=== PATIENT | male | born 1960 | race Caucasian/White ===

== ENCOUNTER 2018-07-23 18:48 | Emergency (ER) | payer OTHER ==
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
--- OUTSIDE RECORDS SUMMARY | 2018-07-23 19:50 | XMS REPORT | Continuity of Care Document ---
:1960 External Reference #:[id number] Author Name Lorenzo Lee JR, MD Address [address] [place] [id number] Care Team Providers Name Role Phone Lorenzo Lee JR., M.D. Primary Care Physician Unavailable Payers Date Identification Numbers Payment Provider Subscriber Effective: 2017 Policy Number: [id number] [facility] Shared Services Marino Carmella Shantelle MCDONALD PayID: [id number] [address] [address] [place] [address] Expires: 2017 Policy Number: [id number] [facility] Shared Services Marino Carmella Shantelle MCDONALD PayID: [id number] [address] [address] [place] [address] Expires: 2016 Policy Number: [id number] [facility] Marino Carmella Shantelle MCDONALD PayID: [id number] [address] [place] [address] Expires: 2016 Policy Number: [id number] [facility] Shared Marino Eric Service PayID: [id number] [address] [address] [place] [address] Advance Directives Description No Information Available Problems Date Description Provider Status Onset: 04/04/2009 Peptic reflux disease Lorenzo Lee JR, MD Active Onset: 04/04/2009 Pure hypercholesterolemia Lorenzo Lee JR, MD Active Onset: 04/04/2009 Family history of ischemic heart Lorenzo Lee JR, MD Active disease Onset: 01/07/2011 Secondary parkinsonism Lorenzo Lee JR, MD Active Onset: 01/07/2011 Essential tremor Lorenzo Lee JR, MD Active Onset: 12/28/2013 Migraine Lorenzo Lee JR, MD Active Onset: 06/28/2014 Essential tremor Lorenzo Lee JR, MD Active Family History Date Family Member(s) Observation Comments Father Melanoma Father Diabetes onset at 74 Mother None Social History Type Date Description Comments Sex Unknown Marital Status Lives With Lives with spouse and step daughter and step son and son Smoke-Free Home is smoke-free 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 Tobacco Use Reviewed: 07/15/18 Never Smoked Cigarettes Smoking Status Reviewed: 07/15/18 Never Smoked Cigarettes ETOH Use Currently consumes alcohol ETOH Use Currently consumes 2 single drinks of liquor daily Tobacco Use Reviewed: 07/15/18 Patient has never smoked UNKNOWN 07/15/2018 Never used E cigarette Allergies, Adverse Reactions, Alerts Description No Known Drug Allergies Medications Medication Date Status Form Strength Qnty SIG Indications Ordering Provider Donepezil HCL 07/15 Active Tablets 5mg 30tab 1 by mouth F02.80 s every day Juan Alberto x2 weeks MD TAMARA then 2 everyday Comtan 09/10 Active Tablets 200mg 60tab 1 by mouth G2 s twice a day Juan Alberto MCDONALD MD Ventolin HFA 05/22 Active Aerosol 108(90Bas 1unit 1-2 puffs e) s every 4-6 Bonavita mcg/Act hours as MD TAMARA needed Ropinirole HCL 01/09 Active Tablets 4mg 270ta 1 by mouth G2 bs three times Juleevita a day MD TAMARA Paxil 12/28 Active Tablets 20mg 90tab 1 by mouth G43.909 s every day Juan Alberto MCDONALD MD Sinemet CR 02/09 Active Tablets 50-200mg 180ta 1 by mouth G2 ER bs twice a day Juan Alberto MCDONALD MD Aspirin 10/15 Active Tablets 81mg [address] Juan Alberto MCDONALD MD Multivitamins 05/07 Active Tablets 1 PO qd ARI Walker Dramamine Active Tablets 100mg OTC 1 by mouth twice a day Juan Alberto MCDONALD MD Terbinafine HCL 10/08 Hx Tablets 250mg 28tab take 1 B35.1 s tablet by Juan Alberto - mouth daily MD TAMARA 07/15 for nail disease (plan allows #28/28 days) Methylprednisolone 10/28 Hx Tablets 4mg 1Pack per pack M54.2 directions Juan Alberto Michelle JR, MD 11/17 Cefdinir 09/10 Hx Capsules 300mg 20cap 2 by mouth L03.116 s every day Juan Alberto Michelle JR, MD 09/20 Nystatin 12/26 Hx Cream [id number] 90gm apply to Adin A. t/GM area twice Fiacco, - a day, d/c 01/09 when gone Proair HFA 10/22 Hx Aerosol 108(90Bas 1unit 1-2 puffs J45.22 e) s q4-6 as Juan Alberto - mcg/Act needed MD TAMARA 05/22 wheezing/ b Xyzal 09/04 Hx Tablets 5mg 30tab 1 by mouth s every day Juan Alberto Michelle JR, MD 10/22 Breo Ellipta 08/24 Hx Aerosol 100-25mcg 3unit 1 in every G21.9 /Inh s day Juan Alberto Michelle JR, MD 06/08 Entacapone 06/28 Hx Tablets 200mg 180ta 1 by mouth G21.9 bs twice a day Juan Alberto Michelle JR, MD 09/10 Anoro Ellipta 06/28 Hx Aerosol 62.5-25mc sg 1 puff 332.1 g/Inh every day Juan Alberto Michelle JR, MD 08/24 Requip 12/28 Hx Tablets 2mg 360ta 2 by mouth 332.1 bs three times Bonavita - a day MD TAMARA 01/09 Requip 04/06 Hx Tablets 2mg 270ta 1 po tid 332.1 bs Juan Alberto Michelle JR, MD 12/28 Requip 02/24 Hx Tablets 1mg 90tab 1 po tid 332.1 s Juan Alberto Michelle JR, MD 04/06 Mirapex 01/26 Hx Tablets 1mg 90tab 1.5 po tid 333.1 s Juan Alberto Michelle JR, MD 02/09 332.1 Neupro 01/06/2013 - Hx Patches 24HR 4mg/24HR 1 patch q 24 Lorenzo 01/26/2013 hours Juan Alberto MCDONALD MD Neupro 12/23/2012 - Hx Patches 24HR 2mg/24HR [id number] apply q 24 Lorenzo 01/06/2013 hrs. Juan Alberto MCDONALD MD Mirapex 12/22/2012 - Hx Tablets 1.5mg 1 po tid rx 332.1 Lorenzo 12/23/2012 not printed Juan Alberto MCDONALD MD 333.1 Bactrim DS 12/20/2011 - Hx Tablets 800-160mg 20tabs 1 po bid x Abraham P. 12/30/2011 10 days MD Arsenio Bactroban 12/20/2011 - Hx Cream 2% [id number] apply to 704 Abraham P. 12/22/2012 affected .8 MD Arsenio skin bid prn Keflex 12/02/2011 - Hx Capsules 500mg 20caps 1 po bid x 704 Paulette E. 12/12/2011 10 days .8 FRANCIE Cartwright Proair HFA 12/02/2011 - Hx Aerosol 108(90Base) 1units 1-2 puffs 493 Paulette E. 10/23/2015 mcg/ac q4-6 prn .01 Gabbie wheezing/so FRANCIE b Prednisone 09/16/2011 - Hx Tablets 20mg 20tabs 2 po qd 704 Lorenzo 12/02/2011 .8 Juan Alberto MCDONALD MD Sinemet 09/16/2011 - Hx Tablets 25-100mg 30tabs 1 po tid 332 Lorenzo 09/16/2011 .1 Juan Alberto MCDONALD MD Mirapex ER 05/20/2010 - Hx Tablets ER 1.5mg 270tabs 1 po tid 332 Lorenzo 12/22/2012 24HR .1 Juan Alberto MCDONALD MD 333.1 Zoloft 05/01/2010 - Hx Tablets 50mg 30tabs 1 po qd Lorenzo 05/01/2010 Juan Alberto MCDONALD MD Paxil 05/01/2010 - Hx Tablets 30mg 90tabs 1 po qd 346.90 Lorenzo 12/28/2013 Juan Alberto MCDONALD MD Fluoxetine 04/08/2010 - Hx Capsules 20mg 30caps 1 po qd Lorenzo 05/01/2010 Juan Alberto MCDONALD MD Carbidopa/Levo 02/04/2010 - Hx Tablets 25-100m 90tabs 1 po tid Lorenzo dopa 04/08/2010 g Juan Alberto MCDONALD MD Abilify 12/26/2009 - Hx Tablets 5mg 30tabs 1 po qhs Lorenzo 04/08/2010 Juan Alberto MCDONALD MD Omeprazole 11/14/2009 - Hx Capsules DR 20mg 30caps 1 po qd 530.11 Bg, 02/17/2011 MD Aleksandr Paxil 11/14/2009 - Hx Tablets 20mg 30tabs 1 po qd 311 Lorenzo 04/23/2010 continue with Juan Alberto Fluoxatine for MD TAMARA two weeks then discontinue Amantadine HCL 11/14/2009 - Hx Capsules 100mg 60caps 1 po bid 333.1 02/04/2010 Juan Alberto MCDONALD MD Simvastatin 04/09/2009 - Hx Tablets 20mg 30tabs 1 po qhs Bg, 12/26/2009 MD Aleksandr Protonix 04/13/2008 - Hx Tablets DR 40mg 30tabs 1 po qd Bg, 11/14/2009 MD Aleksandr Aciphex 04/12/2008 - Hx Tablets DR 20mg 30tabs 1 PO qd 04/13/2008 Juan Alberto MCDONALD MD Crestor 03/20/2008 - Hx Tablets 10mg 30tabs 1 PO qd 04/04/2009 Juan Alberto MCDONALD MD Lortab 5/500 02/22/2007 - Hx Tablets 20tabs 1 po bid prn Abraham Servin 08/30/2007 MD Carley Flexeril 02/19/2007 - Hx Tablets 10mg 60tabs 1/2-1 PO tid Adin Douglas 02/22/2007 prn Naren Vo MD Motrin 02/19/2007 - Hx Tablets 800mg 90tabs 1 PO tid prn Adin Douglas 04/04/2009 Pain With Food MD Tavo Zithromax 10/15/2006 - Hx Tablets 250mg 6tabs 2 PO On Day 1, Lorenzo Z-Titi 02/19/2007 1 PO On Days Juan Alberto 2-5 MD TAMARA Ibuprofen 05/15/2006 - Hx Tablets 800mg 90tabs 1 PO tid With Lorenzo 10/15/2006 Food prn Juan Alberto MCDONALD MD Valium 05/08/2006 - Hx Tablets 10mg 1tabs 1 po 1 hour 05/15/2006 prior to Juan Alberto rey JR, MD Lortamaicol 03/05/2006 - Hx Tablets 7.5mg;5 30tabs 1 q 4-6 hrs Lorenzo 05/08/2006 00 mg prn Juan Alberto MCDONALD MD Paxil 05/07/2004 - Hx Tablets 30mg 30tabs 1 po qd Lorenzo 11/14/2009 Juan Alberto MCDONALD MD Maxair 05/07/2004 - Hx Aerosol 0.2mg/A 1units 2 puffs qid 493.90 Lorenzo 12/02/2011 ctuatio carolina valdez JR, MD Motrin 05/07/2004 - Hx Tablets 800mg 90tabs 1 po tid with Maria Isabel 12/01/2005 food prcourtney Walker PA-C Mirapex - Hx Tablets 1.5mg 60tabs 1 po bid Lorenzo 05/20/2010 Juan Alberto MCDONALD MD Azilect - Hx Tablets 0.5mg 1 po qd 332.1 Jeremy, 09/16/2011 MD Vanessa 333.1 Medications Administered in Office Medication Date Status Form Strength Qnty SIG Indications Ordering Provider Kenalog 40MG Administered Injection Osmar Servin (Triamcinolone 019 Zoran, Acetonide) Depo-Medrol 80 Administered Injection Paulette E. MG 017 CHINTAN CartwrightP-ELIAS Kenalog 80MG Administered Injection Lorenzo (Triamcinolone 017 Bonavita Acetonide) MD TAMARA Toradol, 60 MG Administered Injection Courtney, Dwayne Hinkle PA-C Toradol, 15 MG Administered Injection Maria Isabel 006 ARI Walker Immunizations CPT Code Status Date Vaccine Lot # [id number] Given 03/11/2018 Flu, Multi-Dose Vial W/Preservative (Age 3 Yrs And [id number] Older)Quad 0.5 48149 Given 05/22/2016 Flu, Multi-Dose Vial W/Preservative (Age 3 Yrs And [id number] Older)Quad 0.5 17044 Given 01/26/2013 Flu Shot 3 Yrs And Above (Multi Dose Vial) [id number] 98913 Given 05/12/2011 Adacel - Tdap [facility] 45464-947-00 05/05 cc [id number] 71843 Given 02/17/2011 Flu Shot 3 Yrs And Above (Multi Dose Vial) [id number] 09473 Given 04/04/2009 Flu Shot 3 Yrs And Above (Multi Dose Vial) [id number] 98213 Given 03/15/2008 Pneumococcal 23 Vaccine [id number] 94300 Given 03/15/2008 Flu Shot 3 Yrs And Above (Multi Dose Vial) [id number] 29740 Given 02/19/2007 Flu Shot 3 Yrs And Above (Multi Dose Vial) [id number] 96081 Given 03/04/2006 Flu Shot 3 Yrs And Above (Multi Dose Vial) 59326 Given 02/11/2005 Flu Shot 3 Yrs And Above (Multi Dose Vial) 13327 Given 03/26/2004 Flu Shot 3 Yrs And Above (Multi Dose Vial) 27889 Given 04/08/2000 Td Toxoids 70012 Given 04/08/2000 Influenza Virus Whole Vital Signs Date Vital Result Comment 07/15/2018 2:26pm BP Systolic 120 mmHg BP Diastolic 84 mmHg Heart Rate 72 /min Body Temperature 98.1 F Respiratory Rate 16 /min Weight 269.00 lb Weight 122.018 kg Height 74 inches 6'2" BMI (Body Mass Index) 34.5 kg/m2 07/08/2018 2:21pm BP Systolic 120 mmHg BP Diastolic 78 mmHg Heart Rate 70 /min Body Temperature 97.8 F Respiratory Rate 14 /min Weight 279.00 lb Weight 126.554 kg Height 74 inches 6'2" BMI (Body Mass Index) 35.8 kg/m2 06/08/2018 11:38am BP Systolic 110 mmHg BP Diastolic 80 mmHg Heart Rate 72 /min Body Temperature 98.0 F Respiratory Rate 18 /min Weight 279.00 lb Weight 126.554 kg Height 74 inches 6'2" BMI (Body Mass Index) 35.8 kg/m2 03/11/2018 10:55am BP Systolic 120 mmHg BP Diastolic 78 mmHg Heart Rate 74 /min Body Temperature 98.3 F Respiratory Rate 15 /min Weight 286.00 lb Weight 129.730 kg Height 74 inches 6'2" BMI (Body Mass Index) 36.7 kg/m2 10/08/2017 2:18pm BP Systolic 116 mmHg BP Diastolic 70 mmHg Heart Rate 70 /min Body Temperature 97.9 F Respiratory Rate 16 /min Weight 280.00 lb Weight 127.008 kg Height 74 inches 6'2" BMI (Body Mass Index) 35.9 kg/m2 08/18/2017 8:59am BP Systolic 110 mmHg BP Diastolic 70 mmHg Heart Rate 68 /min Body Temperature 98.3 F Respiratory Rate 18 /min Weight 280.00 lb Weight 127.008 kg Height 74 inches 6'2" BMI (Body Mass Index) 35.9 kg/m2 01/06/2017 2:09pm BP Systolic 126 mmHg BP Diastolic 78 mmHg Heart Rate 74 /min Body Temperature 98.5 F Respiratory Rate 15 /min Weight 283.00 lb Weight 128.369 kg Height 74 inches 6'2" BMI (Body Mass Index) 36.3 kg/m2 10/28/2016 11:27am BP Systolic 130 mmHg BP Diastolic 72 mmHg Heart Rate 78 /min Body Temperature 97.9 F Respiratory Rate 18 /min Weight 276.00 lb Weight 125.194 kg Height 74 inches 6'2" BMI (Body Mass Index) 35.4 kg/m2 09/10/2016 11:51am BP Systolic 120 mmHg BP Diastolic 80 mmHg Heart Rate 82 /min Body Temperature 97.6 F Respiratory Rate 14 /min Weight 286.00 lb Weight 129.730 kg Height 74 inches 6'2" BMI (Body Mass Index) 36.7 kg/m2 05/22/2016 8:41am BP Systolic 120 mmHg BP Diastolic 74 mmHg Heart Rate 74 /min Body Temperature 98.4 F Respiratory Rate 18 /min Weight 294.00 lb Weight 133.358 kg Height 74 inches 6'2" BMI (Body Mass Index) 37.7 kg/m2 12/27/2015 11:54am BP Systolic 130 mmHg BP Diastolic 80 mmHg Heart Rate 70 /min Body Temperature 97.9 F Respiratory Rate 18 /min Weight 286.00 lb Weight 129.730 kg Height 74 inches 6'2" BMI (Body Mass Index) 36.7 kg/m2 10/23/2015 3:33pm BP Systolic 128 mmHg BP Diastolic 80 mmHg Heart Rate 76 /min Body Temperature 98.7 F Respiratory Rate 16 /min Weight 283.00 lb Weight 128.369 kg Height 74 inches 6'2" BMI (Body Mass Index) 36.3 kg/m2 08/24/2014 11:07am BP Systolic 122 mmHg BP Diastolic 70 mmHg Heart Rate 78 /min Body Temperature 97.8 F Respiratory Rate 18 /min Weight 286.00 lb Weight 129.730 kg Height 74 inches 6'2" BMI (Body Mass Index) 36.7 kg/m2 06/28/2014 12:38pm BP Systolic 124 mmHg BP Diastolic 82 mmHg Heart Rate 70 /min Respiratory Rate 16 /min Weight 284.00 lb Weight 128.822 kg Height 74 inches 6'2" BMI (Body Mass Index) 36.5 kg/m2 12/28/2013 9:02am BP Systolic 120 mmHg BP Diastolic 88 mmHg Heart Rate 80 /min Body Temperature 97.9 F Respiratory Rate 20 /min Weight 284.00 lb Weight 128.822 kg Height 74 inches 6'2" BMI (Body Mass Index) 36.5 kg/m2 04/06/2013 9:55am BP Systolic 116 mmHg BP Diastolic 76 mmHg Heart Rate 60 /min Body Temperature 97.7 F Respiratory Rate 14 /min Weight 284.00 lb Weight 128.822 kg Height 74 inches 6'2" BMI (Body Mass Index) 36.5 kg/m2 02/24/2013 3:42pm BP Systolic 130 mmHg BP Diastolic 78 mmHg Heart Rate 68 /min Body Temperature 98.3 F Respiratory Rate 16 /min Weight 281.00 lb Weight 127.462 kg Height 74 inches 6'2" BMI (Body Mass Index) 36.1 kg/m2 01/26/2013 3:41pm BP Systolic 122 mmHg BP Diastolic 78 mmHg Heart Rate 80 /min Body Temperature 97.9 F Respiratory Rate 16 /min Weight 288.00 lb Weight 130.637 kg Height 74 inches 6'2" BMI (Body Mass Index) 37.0 kg/m2 12/23/2012 9:14am BP Systolic 132 mmHg BP Diastolic 84 mmHg Heart Rate 80 /min Body Temperature 98.2 F Respiratory Rate 16 /min Weight 278.00 lb Weight 126.101 kg Height 74 inches 6'2" BMI (Body Mass Index) 35.7 kg/m2 12/20/2011 10:26am BP Systolic 114 mmHg BP Diastolic 72 mmHg Heart Rate 76 /min Body Temperature 98.1 F Respiratory Rate 16 /min Weight 292.00 lb Weight 132.451 kg Height 74 inches 6'2" BMI (Body Mass Index) 37.5 kg/m2 12/02/2011 3:57pm BP Systolic 128 mmHg BP Diastolic 86 mmHg Heart Rate 74 /min Body Temperature 98.0 F Respiratory Rate 16 /min Weight 288.00 lb Weight 130.637 kg Height 74 inches 6'2" BMI (Body Mass Index) 37.0 kg/m2 09/16/2011 3:10pm BP Systolic 126 mmHg BP Diastolic 76 mmHg Heart Rate 84 /min Body Temperature 98.3 F Respiratory Rate 12 /min Weight 285.00 lb Weight 129.276 kg Height 74 inches 6'2" BMI (Body Mass Index) 36.6 kg/m2 05/12/2011 10:27am BP Systolic 138 mmHg BP Diastolic 86 mmHg Heart Rate 76 /min Body Temperature 97.8 F Respiratory Rate 16 /min Weight 281.00 lb Weight 127.462 kg Height 74 inches 6'2" BMI (Body Mass Index) 36.1 kg/m2 02/17/2011 11:52am BP Systolic 118 mmHg BP Diastolic 80 mmHg Heart Rate 68 /min Body Temperature 97.9 F Respiratory Rate 20 /min Weight 281.00 lb Weight 127.462 kg Height 74 inches 6'2" BMI (Body Mass Index) 36.1 kg/m2 05/07/2010 10:19am BP Systolic 120 mmHg BP Diastolic 82 mmHg Heart Rate 60 /min Body Temperature 98.0 F Respiratory Rate 16 /min Weight 282.00 lb Weight 127.915 kg Height 74 inches 6'2" BMI (Body Mass Index) 36.2 kg/m2 04/08/2010 10:11am BP Systolic 122 mmHg BP Diastolic 82 mmHg Heart Rate 78 /min Body Temperature 97.6 F Respiratory Rate 16 /min Weight 288.00 lb Weight 130.637 kg Height 74 inches 6'2" BMI (Body Mass Index) 37.0 kg/m2 02/04/2010 10:56am BP Systolic 136 mmHg BP Diastolic 78 mmHg Heart Rate 84 /min Body Temperature 98.1 F Respiratory Rate 16 /min Weight 290.00 lb Weight 131.544 kg Height 74 inches 6'2" BMI (Body Mass Index) 37.2 kg/m2 12/26/2009 11:24am BP Systolic 130 mmHg BP Diastolic 96 mmHg Heart Rate 80 /min Body Temperature 97.9 F Respiratory Rate 14 /min Weight 288.00 lb Weight 130.637 kg Height 74 inches 6'2" BMI (Body Mass Index) 37.0 kg/m2 11/14/2009 9:58am BP Systolic 112 mmHg BP Diastolic 80 mmHg Heart Rate 84 /min Body Temperature 97.3 F Respiratory Rate 16 /min Weight 292.00 lb Weight 132.451 kg 04/04/2009 10:41am BP Systolic 140 mmHg BP Diastolic 90 mmHg Heart Rate 80 /min Body Temperature 98.4 F Respiratory Rate 16 /min Weight 287.00 lb Weight 130.183 kg Height 74 inches 6'2" BMI (Body Mass Index) 36.8 kg/m2 04/12/2008 12:09pm BP Systolic 130 mmHg BP Diastolic 90 mmHg Heart Rate 78 /min Body Temperature 97.1 F Respiratory Rate 14 /min Weight 282.00 lb Weight 127.915 kg Height 74 inches 6'2" BMI (Body Mass Index) 36.2 kg/m2 03/15/2008 9:36am BP Systolic 124 mmHg BP Diastolic 84 mmHg Heart Rate 68 /min Body Temperature 97.2 F Respiratory Rate 14 /min Weight 279.00 lb Weight 126.554 kg Height 74 inches 6'2" BMI (Body Mass Index) 35.8 kg/m2 08/30/2007 6:54pm BP Systolic 124 mmHg BP Diastolic 86 mmHg Heart Rate 80 /min Body Temperature 97.1 F Respiratory Rate 12 /min Weight 279.00 lb Weight 126.554 kg 02/22/2007 2:41pm BP Systolic 130 mmHg BP Diastolic 80 mmHg Heart Rate 84 /min Respiratory Rate 16 /min 02/19/2007 8:10am BP Systolic 124 mmHg BP Diastolic 82 mmHg Heart Rate 82 /min Body Temperature 97.6 F Respiratory Rate 16 /min Weight 271.00 lb Weight 122.926 kg 10/15/2006 11:14am BP Systolic 140 mmHg BP Diastolic 100 mmHg Heart Rate 80 /min Body Temperature 97.0 F Respiratory Rate 12 /min Weight 275.00 lb Weight 124.740 kg 07/17/2006 6:54pm BP Systolic 130 mmHg BP Diastolic 90 mmHg Heart Rate 80 /min Body Temperature 97.5 F Weight 282.00 lb Weight 127.915 kg 06/29/2006 10:04am BP Systolic 130 mmHg BP Diastolic 90 mmHg 05/08/2006 8:57am BP Systolic 124 mmHg BP Diastolic 86 mmHg Heart Rate 80 /min Body Temperature 97.2 F Respiratory Rate 14 /min Weight 275.00 lb Weight 124.740 kg 03/05/2006 5:04pm BP Systolic 150 mmHg BP Diastolic 80 mmHg Heart Rate 84 /min Body Temperature 96.8 F Respiratory Rate 26 /min 03/04/2006 2:45pm BP Systolic 118 mmHg BP Diastolic 80 mmHg Heart Rate 92 /min Body Temperature 97.9 F Respiratory Rate 18 /min Weight 276.00 lb Weight 125.194 kg 12/19/2005 11:53am BP Systolic 132 mmHg BP Diastolic 104 mmHg Heart Rate 84 /min Body Temperature 97.2 F Respiratory Rate 13 /min Weight 272.00 lb Weight 123.379 kg 12/01/2005 10:17am BP Systolic 120 mmHg Rech 130/80 BP Diastolic 88 mmHg Rech 130/80 Heart Rate 76 /min Body Temperature 97.2 F Respiratory Rate 12 /min Weight 272.00 lb Weight 123.379 kg 02/11/2005 1:51pm BP Systolic 112 mmHg BP Diastolic 80 mmHg Heart Rate 80 /min Body Temperature 97.9 F Respiratory Rate 18 /min Weight 263.00 lb Weight 119.297 kg 05/07/2004 8:16pm BP Systolic 146 mmHg BP Diastolic 88 mmHg Heart Rate 104 /min Body Temperature 97.2 F Respiratory Rate 18 /min Weight 268.00 lb Weight 121.565 kg Results Test Date Facility Test Result H/L Range Note Laboratory test 07/15/2018 [facility] Syphilis Screen NEGATIVE (Neg ) 1 finding Esr 5 mm/hr 0-20 Laboratory test finding 07/08/2018 [facility] TSH 1.206 uIU/mL 0.350-4.940 FT4_6 1.06 ng/dL 0.70-1.48 Laboratory test 07/08/2018 [facility] Vitamin B12 437.00 pg/mL 213.00-816.00 finding Arch Comprehensive 07/08/2018 [facility] Glucose 88.00 mg/dL 70.00- 110.00 Metabolic Panel Urea Nitrogen 16 mg/dL 8-21 CreaC 0.9 mg/dL 0.7-1.3 GFR 89.13 mL/min 2 Na-C 140 mmol/L 136-145 K-C 4.1 mmol/L 3.5-5.1 Cl-C 104 mmol/L 98-107 Total Protein 8.0 g/dL 6.4-8.3 Alb P 4.20 g/dL 3.30-5.00 Alanine Aminotransferase <6 U/L 0-55 Aspartate Aminotransferase 16 U/L 5-34 Alkaline Phosphatase 77 U/L 40-150 Carbon Dioxide 33.00 mmol/L High 22.00-31.00 BUN/CR 17.39 10.00-20.00 A/G 2.11 1.46-2.46 Osmo 290.60 275.00-295.00 CaC 9.60 mg/dL 8.90-10.40 Total Bilirubin 0.8 mg/dL 0.2-1.2 Glob 2 3.80 2.30-4.20 CBC/Automated Differential 07/08/2018 [facility] WBC 7.42 k/uL 4.60 -10.20 Ashli 3.43 2.00-7.50 %N 46.3 % 37.0-80.0 Lym 3.06 K/UL 1.20-4.80 %L 41.2 % 10.0-50.0 [place] 0.487 0.000-0.900 %M 6.56 % 0.00-12.00 Eos 0.321 0.000-0.700 %E 4.32 % 0.00-7.00 Baso 0.121 0.000-0.200 %B 1.64 % 0.00-4.00 RBC 4.97 m/uL 4.04-6.13 Hemoglobin 15.4 g/dL 12.2-18.1 Hematocrit 44.9 % 42.0-53.7 MCV 90.4 fl 80.0-97.0 MCH 30.9 pg 27.0-31.2 MCHC 34.2 g/dL 31.8-35.4 RDW 11.7 % 11.6-14.8 PLT 250 K/uL 142-424 MPV 6.8 fL 0.0-99.9 Laboratory test 06/08/2018 [facility] PSA Total 0.54 ng/mL 0.00- 4.00 finding Screening CBC/Automated 03/11/2018 [facility] WBC 6.63 k/uL 4.60-10.20 3 Differential Ashli 2.76 2.00-7.50 %N 41.6 % 37.0-80.0 Lym 2.92 K/UL 1.20-4.80 %L 44.0 % 10.0-50.0 [place] 0.481 0.000-0.900 %M 7.25 % 0.00-12.00 Eos 0.383 0.000-0.700 %E 5.77 % 0.00-7.00 Baso 0.087 0.000-0.200 %B 1.31 % 0.00-4.00 RBC 5.02 m/uL 4.04-6.13 Hemoglobin 15.7 g/dL 12.2-18.1 Hematocrit 47.4 % 42.0-53.7 MCV 94.3 fl 80.0-97.0 MCH 31.2 pg 27.0-31.2 MCHC 33.1 g/dL 31.8-35.4 RDW 11.8 % 11.6-14.8 PLT 245 K/uL 142-424 MPV 7.0 fL 0.0-99.9 Comprehensive 03/11/2018 [facility] Glucose 82.00 mg/dL 70.00- 110.00 Metabolic Panel Urea Nitrogen 14 mg/dL 9-21 CreaC 0.9 mg/dL 0.7-1.3 GFR 97.76 mL/min 4 Na-C 139 mmol/L 136-145 K-C 4.4 mmol/L 3.5-5.1 Cl-C 104 mmol/L 98-107 Total Protein 7.7 g/dL 6.4-8.3 Alb P 3.80 g/dL 3.30-5.00 Alanine Aminotransferase 8 U/L 0-55 Aspartate Aminotransferase 18 U/L 5-34 Alkaline Phosphatase 67 U/L 40-150 Carbon Dioxide 24.00 mmol/L 22.00-31.00 BUN/CR 16.47 10.00-20.00 A/G 1.97 1.46-2.46 Osmo 287.56 275.00-295.00 CaC 9.10 mg/dL 8.90-10.40 Total Bilirubin 1.5 mg/dL High 0.2-1.2 Glob 2 3.90 2.30-4.20 Lipid Panel(New) 03/11/2018 [facility] Cholesterol 175 mg/dL 112- 200 5 Triglyceride 71 mg/dL 1-200 6 HDL 51 mg/dL 30-70 7 Chol/HDL 3.43 Low 4.00-6.70 NHDL 124.00 mg/dL High 0.00-100.00 8 LDL-C 109.80 mg/dL 20.00-130.00 9 CBC/Automated Differential 10/08/2017 [facility] WBC 7.65 k/uL 4.60 -10.20 Ashli 2.96 2.00-7.50 %N 38.7 % 37.0-80.0 Lym 3.64 K/UL 1.20-4.80 %L 47.6 % 10.0-50.0 [place] 0.556 0.000-0.900 %M 7.27 % 0.00-12.00 Eos 0.389 0.000-0.700 %E 5.08 % 0.00-7.00 Baso 0.104 0.000-0.200 %B 1.37 % 0.00-4.00 RBC 4.84 m/uL 4.04-6.13 Hemoglobin 14.4 g/dL 12.2-18.1 Hematocrit 43.7 % 42.0-53.7 MCV 90.3 fl 80.0-97.0 MCH 29.8 pg 27.0-31.2 MCHC 33.0 g/dL 31.8-35.4 RDW 11.8 % 11.6-14.8 PLT 229 K/uL 142-424 MPV 6.5 fL 0.0-99.9 Comprehensive 10/08/2017 [facility] Glucose 100.00 mg/dL 70.00- 110.00 Metabolic Panel Urea Nitrogen 11 mg/dL 9-21 CreaC 0.9 mg/dL 0.7-1.3 GFR 95.30 mL/min 10 Na-C 140 mmol/L 136-145 K-C 4.2 mmol/L 3.5-5.1 Cl-C 104 mmol/L 98-107 Total Protein 7.6 g/dL 6.4-8.3 Alb P 3.80 g/dL 3.30-5.00 Alanine Aminotransferase <6 U/L 0-55 Aspartate Aminotransferase 18 U/L 5-34 Alkaline Phosphatase 72 U/L 40-150 Carbon Dioxide 29.00 mmol/L 22.00-31.00 BUN/CR 12.64 10.00-20.00 A/G 2.00 1.46-2.46 Osmo 289.48 275.00-295.00 CaC 9.00 mg/dL 8.90-10.40 Total Bilirubin 1.0 mg/dL 0.2-1.2 Glob 2 3.80 2.30-4.20 CBC/Automated Differential 08/18/2017 [facility] WBC 5.92 k/uL 4.60 -10.20 Ashli 2.58 2.00-7.50 %N 43.6 % 37.0-80.0 Lym 2.38 K/UL 1.20-4.80 %L 40.1 % 10.0-50.0 [place] 0.452 0.000-0.900 %M 7.63 % 0.00-12.00 Eos 0.423 0.000-0.700 %E 7.15 % High 0.00-7.00 Baso 0.089 0.000-0.200 %B 1.50 % 0.00-4.00 RBC 4.98 m/uL 4.04-6.13 Hemoglobin 15.2 g/dL 12.2-18.1 Hematocrit 45.6 % 42.0-53.7 MCV 91.6 fl 80.0-97.0 MCH 30.6 pg 27.0-31.2 MCHC 33.4 g/dL 31.8-35.4 RDW 11.8 % 11.6-14.8 PLT 215 K/uL 142-424 MPV 7.2 fL 0.0-99.9 Comprehensive 08/18/2017 [facility] [place] Glucose 96.00 mg/dL 70.00- 110.00 Metabolic Panel Urea Nitrogen 14 mg/dL 9-21 CreaC 1.0 mg/dL 0.7-1.3 GFR 81.19 mL/min 11 Na-C 140 mmol/L 136-145 K-C 4.4 mmol/L 3.5-5.1 Cl-C 104 mmol/L 98-107 Total Protein 7.7 g/dL 6.4-8.3 Alb P 3.60 g/dL 3.30-5.00 Alanine Aminotransferase 9 U/L 0-55 Aspartate Aminotransferase 20 U/L 5-34 Alkaline Phosphatase 72 U/L 40-150 Carbon Dioxide 28.00 mmol/L 22.00-31.00 BUN/CR 14.00 10.00-20.00 A/G 1.88 1.46-2.46 [place] 290.33 275.00-295.00 CaC 9.20 mg/dL 8.90-10.40 Total Bilirubin 1.4 mg/dL High 0.2-1.2 Glob 2 4.10 2.30-4.20 Lipid Panel(New) 08/18[facility] [place] Cholesterol 184 mg/dL 112- 200 12 Triglyceride 63 mg/dL 1-200 13 HDL 54 mg/dL 30-70 14 Chol/HDL 3.41 Low 4.00-6.70 NHDL 130.00 mg/dL High 0.00-100.00 15 LDL-C 117.40 mg/dL 20.00-130.00 16 Comprehensive 10/28/2016 [facility] [place] Glucose 83.00 mg/dL 70.00- 110.00 Metabolic Panel Urea Nitrogen 14 mg/dL 9-21 CreaC 0.9 mg/dL 0.7-1.3 GFR 98.22 mL/min 17 Na-C 139 mmol/L 136-145 K-C 4.4 mmol/L 3.5-5.1 Cl-C 103 mmol/L 98-107 Total Protein 7.7 g/dL 6.4-8.3 Alb P 3.70 g/dL 3.30-5.00 Alanine Aminotransferase 9 U/L 0-55 Aspartate Aminotransferase 19 U/L 5-34 Alkaline Phosphatase 76 U/L 40-150 Carbon Dioxide 31.00 mmol/L 22.00-31.00 BUN/CR 16.47 10.00-20.00 A/G 1.93 1.46-2.46 Osmo 287.61 275.00-295.00 CaC 9.00 mg/dL 8.90-10.40 Total Bilirubin 0.8 mg/dL 0.2-1.2 Glob 2 4.00 2.30-4.20 Order 10/28/2016 [facility] [place] Occult - guiac negative [address] [facility] [place] [place] [address] Digital Rectal [phone] Exam Lipid 10/28/2016 [facility] [place] Cholesterol 185 mg/dL 112-20 18 Panel(New) 0 Triglyceride 65 mg/dL 1-200 19 HDL 50 mg/dL 30-70 20 Chol/HDL 3.70 Low 4.00-6.70 NHDL 135.00 mg/dL High 0.00-100.00 21 LDL-C 122.00 mg/dL 20.00-130.00 22 Laboratory test 10/28/2016 [facility] [place] PSA Total 0.94 ng/mL 0.00- 4.00 finding Screening Lipid Panel(New) 05/22/2016 [facility] [place] Cholesterol 186 mg/dL 112- 200 23 Triglyceride 87 mg/dL 1-200 24 HDL 46 mg/dL 30-70 25 Chol/HDL 4.04 4.00-6.70 NHDL 140.00 mg/dL High 0.00-100.00 26 LDL-C 122.60 mg/dL 20.00-130.00 27 Comprehensive 05/22/2016 [facility] [place] Glucose 86.00 mg/dL 70.00- 110.00 Metabolic Panel Urea Nitrogen 18 mg/dL 9-21 CreaC 1.1 mg/dL 0.7-1.3 GFR 76.24 mL/min 28 Na-C 137 mmol/L 136-145 K-C 4.4 mmol/L 3.5-5.1 Cl-C 103 mmol/L 98-107 Total Protein 7.6 g/dL 6.4-8.3 Alb P 3.70 g/dL 3.30-5.00 Alanine Aminotransferase 17 U/L 0-55 Aspartate Aminotransferase 17 U/L 5-34 Alkaline Phosphatase 76 U/L 40-150 Carbon Dioxide 26.00 mmol/L 22.00-31.00 BUN/CR 16.98 10.00-20.00 A/G 1.95 1.46-2.46 Osmo 285.21 275.00-295.00 CaC 8.80 mg/dL Low 8.90-10.40 Total Bilirubin 1.5 mg/dL High 0.2-1.2 Glob 2 3.90 2.30-4.20 CBC/Automated Differential 05/22/2016 [facility] [place] WBC 7.40 k/uL 4.60 -10.20 Ashli 2.93 2.00-7.50 %N 39.6 % 37.0-80.0 Lym 3.39 K/UL 1.20-4.80 %L 45.8 % 10.0-50.0 [place] 0.470 0.000-0.900 %M 6.35 % 0.00-12.00 Eos 0.528 0.000-0.700 %E 7.13 % High 0.00-7.00 Baso 0.081 0.000-0.200 %B 1.10 % 0.00-4.00 RBC 4.81 m/uL 4.04-6.13 Hemoglobin 15.5 g/dL 12.2-18.1 Hematocrit 46.5 % 42.0-53.7 MCV 96.6 fl 80.0-97.0 MCH 32.3 pg High 27.0-31.2 MCHC 33.4 g/dL 31.8-35.4 RDW 12.2 % 11.6-14.8 PLT 229 K/uL 142-424 MPV 6.4 fL 0.0-99.9 Laboratory test 05/22/2016 [facility] [place] TSH 2.635 uIU/mL 0.350-4.940 finding Comprehensive 10/23/2015 [facility] [place] Glucose 77.00 mg/dL 70.00- 110.00 Metabolic Panel Urea Nitrogen 17 mg/dL - CreaC 1.0 mg/dL 0.7-1.3 GFR 86.69 mL/min 29 Na-C 140 mmol/L 136-145 K-C 4.2 mmol/L 3.5-5.1 Cl-C 103 mmol/L 98-107 Total Protein 7.8 g/dL 6.4-8.3 Alb P 3.80 g/dL 3.30-5.00 Alanine Aminotransferase 17 U/L 0-55 Aspartate Aminotransferase 19 U/L 5-34 Alkaline Phosphatase 77 U/L 40-150 Carbon Dioxide 26.00 mmol/L 22.00-31.00 BUN/CR 17.89 10.00-20.00 A/G 1.95 1.46-2.46 Osmo 290.35 275.00-295.00 CaC 9.10 mg/dL 8.90-10.40 Total Bilirubin 1.7 mg/dL High 0.2-1.2 Glob 2 4.00 2.30-4.20 Order 10/23/2015 [facility] [place] Digital Rectal negative [address] Exam [place], [place] [id number] [phone] Lipid 10/23/2015 [facility] [place] Cholesterol 183 mg/dL 112-200 30 Panel(New) Triglyceride 89 mg/dL 1-200 31 HDL 55 mg/dL 30-70 32 Chol/HDL 3.33 Low 4.00-6.70 NHDL 128.00 mg/dL High 0.00-100.00 33 LDL-C 110.20 mg/dL 20.00-130.00 34 Laboratory test 10/23/2015 [facility] [place] PSA Total 0.57 ng/mL 0.00- 4.00 finding Screening CBC/Automated 06/28/2014 [facility] [place] WBC 6.09 k/uL 4.60-10.20 Differential Ashli 2.01 2.00-7.50 %N 33.0 % Low 37.0-80.0 Lym 3.00 K/UL 1.20-4.80 %L 49.3 % 10.0-50.0 [place] 0.478 0.000-0.900 %M 7.86 % 0.00-12.00 Eos 0.522 0.000-0.700 %E 8.58 % High 0.00-7.00 Baso 0.073 0.000-0.200 %B 1.20 % 0.00-4.00 RBC 4.99 m/uL 4.04-6.13 Hemoglobin 15.3 g/dL 12.2-18.1 Hematocrit 47.0 % 42.0-53.7 MCV 94.2 fl 80.0-97.0 MCH 30.6 pg 27.0-31.2 MCHC 32.5 g/dL 31.8-35.4 RDW 11.9 % 11.6-14.8 PLT 220 K/uL 142-424 MPV 7.2 fL 0.0-99.9 Comprehensive 06/28/2014 [facility] [place] Glucose 85.00 mg/dL 70.00- 110.00 Metabolic Panel Urea Nitrogen 13 mg/dL 9-21 CreaC 0.8 mg/dL 0.7-1.3 GFR 103.22 mL/min 35 Na-C 139 mmol/L 136-145 K-C 4.6 mmol/L 3.5-5.1 Cl-C 104 mmol/L 98-107 Total Protein 7.9 g/dL 6.4-8.3 Alb P 3.90 g/dL 3.30-5.00 Alanine Aminotransferase <6 U/L 0-55 Aspartate Aminotransferase 17 U/L 5-34 Alkaline Phosphatase 75 U/L 40-150 Carbon Dioxide 27.00 mmol/L 22.00-31.00 BUN/CR 15.85 10.00-20.00 A/G 1.98 1.46-2.46 Glob 4.00 High 2.30-3.50 Osmo 287.37 275.00-295.00 CaC 9.50 mg/dL 8.90-10.40 Total Bilirubin 1.2 mg/dL 0.2-1.2 Lipid Panel 06/28/2014 [facility] [place] Cholesterol 163 mg/dL 112-200 36 Triglyceride 100 mg/dL 1-200 37 HDL 51 mg/dL 30-70 38 Chol/HDL 3.20 Low 4.00-6.70 LDL 106.00 mg/dL 20.00-130.00 39 NHDL 112.00 mg/dL High 0.00-100.00 40 Comprehensive 12/28/2013 [facility] [place] Glucose 93.00 mg/dL 70.00- 110.00 Metabolic Panel Urea Nitrogen 14 mg/dL 9-21 CreaC 1.0 mg/dL 0.7-1.3 GFR 86.21 mL/min 41 Na-C 139 mmol/L 136-145 K-C 4.0 mmol/L 3.5-5.1 Cl-C 104 mmol/L 98-107 Total Protein 7.7 g/dL 6.4-8.3 Alb P 3.80 g/dL 3.30-5.00 Alanine Aminotransferase 23 U/L 0-55 Aspartate Aminotransferase 19 U/L 5-34 Alkaline Phosphatase 76 U/L 40-150 Carbon Dioxide 26.00 mmol/L 22.00-31.00 BUN/CR 14.58 10.00-20.00 A/G 1.97 1.46-2.46 Glob 3.90 High 2.30-3.50 Osmo 288.17 275.00-295.00 CaC 9.10 mg/dL 8.90-10.40 Total Bilirubin 1.1 mg/dL 0.2-1.2 Lipid Panel 12/28/2013 [facility] [place] Cholesterol 189 mg/dL 112-200 42 Triglyceride 73 mg/dL 1-200 43 HDL 49 mg/dL 30-70 44 Chol/HDL 3.86 Low 4.00-6.70 LDL 127.00 mg/dL 20.00-130.00 45 NHDL 140.00 mg/dL High 0.00-100.00 46 Aspirin Assay 12/28/2013 [facility] [place] Asp.Assay 432.00 0.00-550.00 47 non-resi <SEE NOTE> ARU CBC/Automated 12/28/2013 [facility] [place] WBC 7.66 k/uL 4.60-10.20 Differential Ashli 2.62 2.00-7.50 %N 34.2 % Low 37.0-80.0 Lym 3.61 K/UL 1.20-4.80 %L 47.2 % 10.0-50.0 [place] 0.520 0.000-0.900 %M 6.79 % 0.00-12.00 Eos 0.804 High 0.000-0.700 %E 10.50 % High 0.00-7.00 Baso 0.102 0.000-0.200 %B 1.33 % 0.00-4.00 RBC 5.08 m/uL 4.04-6.13 Hemoglobin 15.9 g/dL 12.2-18.1 Hematocrit 47.5 % 42.0-53.7 MCV 93.5 fl 80.0-97.0 MCH 31.3 pg High 27.0-31.2 MCHC 33.5 g/dL 31.8-35.4 RDW 12.0 % 11.6-14.8 PLT 260 K/uL 142-424 MPV 7.0 fL 0.0-99.9 Laboratory test 12/28/2013 [facility] [place] PSA 0.52 ng/mL 0.00-4.00 finding Comprehensive 12/23/2012 [facility] [place] Glucose 101.00 mg/dL 70.00- 110.00 Metabolic Panel Urea Nitrogen 14 mg/dL 9-21 CreaC 0.9 mg/dL 0.7-1.3 GFR 92.04 mL/min 48 Na-C 140 mmol/L 136-145 K-C 4.2 mmol/L 3.5-5.1 Cl-C 105 mmol/L 98-107 Total Protein 8.2 g/dL 6.4-8.3 Alb P 4.00 g/dL 3.30-5.00 Alanine Aminotransferase 20 U/L 0-55 Aspartate Aminotransferase 18 U/L 5-34 Alkaline Phosphatase 89 U/L 40-150 Carbon Dioxide 24.00 mmol/L 22.00-31.00 BUN/CR 15.38 10.00-20.00 A/G 1.95 1.46-2.46 Glob 4.20 High 2.30-3.50 Osmo 290.61 275.00-295.00 CaC 9.00 mg/dL 8.90-10.40 Total Bilirubin 1.0 mg/dL 0.2-1.2 Lipid Panel 12/23/2012 [facility] [place] Cholesterol 189 mg/dL 112-200 49 Triglyceride 80 mg/dL 1-200 50 HDL 48 mg/dL 30-70 51 Chol/HDL 3.94 Low 4.00-6.70 LDL 126.00 mg/dL 20.00-130.00 52 NHDL 141.00 mg/dL High 0.00-100.00 53 Laboratory test 12/23/2012 [facility] [place] PSA 0.43 ng/mL 0.00-4.00 finding Aspirin Assay 12/23/2012 [facility] [place] Asp.Assay 576.00 High 0.00- 550.00 54 resistant ARU CBC/Automated 12/23/2012 [facility] [place] WBC 7.91 k/uL 4.60-10.20 Differential Ashli 2.97 2.00-7.50 %N 37.5 % 37.0-80.0 Lym 3.52 K/UL 1.20-4.80 %L 44.5 % 10.0-50.0 [place] 0.489 0.000-0.900 %M 6.19 % 0.00-12.00 Eos 0.783 High 0.000-0.700 %E 9.90 % High 0.00-7.00 Baso 0.148 0.000-0.200 %B 1.87 % 0.00-4.00 RBC 5.29 m/uL 4.04-6.13 Hemoglobin 16.4 g/dL 12.2-18.1 Hematocrit 50.9 % 42.0-53.7 MCV 96.3 fl 80.0-97.0 MCH 30.9 pg 27.0-31.2 MCHC 32.1 g/dL 31.8-35.4 RDW 11.9 % 11.6-14.8 PLT 289 K/uL 142-424 MPV 6.9 fL 0.0-99.9 CBC/Automated Differential 05/12/2011 [facility] [place] WBC 5.94 k/uL 4.60 -10.20 Ashli 2.59 2.00-7.50 %N 43.6 % 37.0-80.0 Lym 2.38 K/UL 1.20-4.80 %L 40.0 % 10.0-50.0 [place] 0.431 0.000-0.900 %M 7.25 % 0.00-12.00 Eos 0.481 0.000-0.700 %E 8.09 % High 0.00-7.00 Baso 0.067 0.000-0.200 %B 1.13 % 0.00-4.00 RBC 5.16 m/uL 4.04-6.13 Hemoglobin 15.8 g/dL 12.2-18.1 Hematocrit 47.5 % 42.0-53.7 MCV* 91.9 fl 80.0-97.0 MCH* 30.7 pg 27.0-31.2 MCHC* 33.4 g/dL 31.8-35.4 RDW* 11.9 % 11.6-14.8 PLT 287 K/uL 142-424 MPV 5.9 fL 0.0-99.9 Comprehensive 05/12/2011 [facility] [place] Glucose 95.00 mg/dL 70.00- 110.00 Metabolic Panel Urea Nitrogen 12 mg/dL 9-21 CreaC 1.0 mg/dL 0.7-1.3 GFR 88.12 mL/min 55 Na-C 141 mmol/L 136-145 K-C 4.3 mmol/L 3.5-5.1 Cl-C 105 mmol/L 98-107 Total Protein 7.9 g/dL 6.4-8.3 Alb P 4.10 g/dL 3.30-5.00 Alanine Aminotransferase 28 U/L 0-55 Aspartate Aminotransferase 23 U/L 5-34 Alkaline Phosphatase 71 U/L 40-150 Carbon Dioxide 29.00 mmol/L 22.00-31.00 BUN/CR 12.63 10.00-20.00 A/G 2.08 1.46-2.46 Glob 3.80 High 2.30-3.50 Osmo 291.56 275.00-295.00 CaC 9.20 mg/dL 8.90-10.40 Total Bilirubin 1.4 mg/dL High 0.2-1.2 Lipid Panel 05/12/2011 [facility] [place] Cholesterol 205 mg/dL High 112- 200 56 Triglyceride 59 mg/dL 1-200 57 HDL 53 mg/dL 30-70 58 Chol/HDL 3.87 Low 4.00-6.70 LDL 127.00 mg/dL 20.00-130.00 59 NHDL 152.00 mg/dL High 0.00-100.00 60 Laboratory test finding 05/12/2011 [facility] [place] Free T4 1.18 ng/dL 0.70-1.48 TSH 2.787 uIU/mL 0.350-4.940 PSA 0.58 ng/mL 0.00-4.00 Order 05/12/2011 [facility] [place] Occult - Neg [address] [facility] [address] Rectal Exam [phone] Laboratory test 05/12/2011 [facility] [place] Occult Negative Negative finding Blood-Stool X3 Testosterone 216 ng/dL Low [id number] 61 Urinalysis/Microscopic 05/12/2011 [facility] [place] Color Yellow Abnormal Appear Clear Abnormal Leuk Negative Negative Nitrite Negative Negative Urobil 0.2 0.2-1.0 Protein Negative Negative pH 6.5 5.0-8.5 Blood [id number] <SEE NOTE> Abnormal Negative 62 S.G. 1.015 1.005-1.025 Ketone Negative Negative Bili Negative Negative U-Glu Negative Negative Comment Essentially nega <SEE NOTE> Abnormal 63 Aspirin Assay 05/12/2011 [facility] [place] Asp.Assay 594.00 High 0.00- 550.00 64 resistant ARU Laboratory 02/17/2011 [facility] [place] Surgical Path SEE NOTE 65 test finding Order 11/14/2009 [facility] [place] Occult - neg [address] [facility] [place] [address] Exam [phone] Lipid Panel 11/14/2009 [facility] [place] Cholesterol 181 mg/dL 112-200 66 , 67 Triglyceride 73 mg/dL 1-200 68 HDL 52 mg/dL 30-70 69 Chol/HDL 3.48 Low 4.00-6.70 LDL 141.00 mg/dL High 20.00-130.00 70 NHDL 129.00 mg/dL High 0.00-100.00 71 Comprehensive 11/14/2009 [facility] [place] Glucose 102.00 mg/dL 70.00- 110.00 Metabolic Panel Urea Nitrogen 13 mg/dL 9-21 CreaC 1.0 mg/dL 0.7-1.3 GFR 84.51 mL/min 72 Na-C 142 mmol/L 136-145 K-C 4.7 mmol/L 3.5-5.1 Cl-C 106 mmol/L 98-107 Total Bilirubin 0.6 mg/dL 0.2-1.2 Total Protein 7.9 g/dL 6.4-8.3 Alb P 3.60 g/dL 3.30-5.00 Alanine Aminotransferase 34 U/L 0-55 Aspartate Aminotransferase 21 U/L 5-34 Alkaline Phosphatase 73 U/L 40-150 Carbon Dioxide 25.00 mmol/L 22.00-31.00 BUN/CR 13.13 10.00-20.00 A/G 1.84 1.46-2.46 Glob 4.30 High 2.30-3.50 Osmo 294.31 275.00-295.00 CaC 9.30 mg/dL 8.90-10.40 CBC/Automated Differential 11/14/2009 [facility] [place] WBC 7.00 k/uL 4.60 -10.20 Ashli 2.85 2.00-7.50 %N 40.7 % 37.0-80.0 Lym 3.11 K/UL 1.20-4.80 %L 44.4 % 10.0-50.0 [place] 0.469 0.000-0.900 %M 6.70 % 0.00-12.00 Eos 0.480 0.000-0.700 %E 6.87 % 0.00-7.00 Baso 0.091 0.000-0.200 %B 1.31 % 0.00-4.00 RBC 4.97 m/uL 4.04-6.13 Hemoglobin 15.5 g/dL 12.2-18.1 Hematocrit 47.1 % 42.0-53.7 MCV* 94.7 fl 80.0-97.0 MCH* 31.3 pg High 27.0-31.2 MCHC* 33.0 g/dL 31.8-35.4 RDW* 11.6 % 11.6-14.8 PLT 266 K/uL 142-424 MPV 8.4 fL 0.0-99.9 Laboratory test finding 11/14/2009 [facility] [place] Free T4 1.01 ng/dL 0.70-1.48 TSH 2.572 uIU/mL 0.350-4.940 PSA 0.42 ng/mL 0.00-4.00 Basic Metabolic 04/04/2009 [facility] [place] Glucose 117.00 mg/dL High 70.00-110.00 Panel Sodium 138 mmol/L 136-145 Potassium 4.2 mmol/L 3.5-5.1 Chloride 105 mmol/L 98-107 Carbon Dioxide 24.00 mmol/L 22.00-31.00 Urea Nitrogen 12 mg/dL 9-21 GFR 67.85 mL/min 73 Creatinine 1.2 mg/dL 0.7-1.3 Calcium 9.4 mg/dL 8.9-10.4 BUN/CR 10.00 10.00-20.00 Osmo 286.79 275.00-295.00 CBC/Automated Differential 04/04/2009 [facility] [place] WBC 5.81 k/uL 4.60 -10.20 Ashli 2.64 2.00-7.50 %N 45.3 % 37.0-80.0 Lym 2.49 K/UL 1.20-4.80 %L 42.8 % 10.0-50.0 [place] 0.317 0.000-0.900 %M 5.45 % 0.00-12.00 Eos 0.292 0.000-0.700 %E 5.02 % 0.00-7.00 Baso 0.081 0.000-0.200 %B 1.40 % 0.00-4.00 RBC 4.97 m/uL 4.04-6.13 Hemoglobin 15.3 g/dL 12.2-18.1 Hematocrit 45.0 % 42.0-53.7 MCV* 90.5 fl 80.0-97.0 MCH* 30.8 pg 27.0-31.2 MCHC* 34.1 g/dL 31.8-35.4 RDW* 11.5 % Low 11.6-14.8 PLT 282 K/uL 142-424 MPV 7.9 fL 0.0-99.9 Lipid Panel 04/04/2009 [facility] [place] Cholesterol 213 mg/dL High 112- 200 74 Triglyceride 82 mg/dL 1-200 75 HDL 48 mg/dL 30-70 76 Chol/HDL 4.44 4.00-6.70 LDL 159.00 mg/dL High 20.00-130.00 77 NHDL 165.00 mg/dL High 0.00-100.00 78 Hepatic Function 04/04/2009 [facility] [place] Total Bilirubin 1.0 mg/dL 0.2-1.2 Panel Direct Bilirubin 0.3 mg/dL 0.0-0.5 Total Protein 7.9 g/dL 6.4-8.3 Albumin 4.1 g/dL 3.5-5.0 Alkaline Phosphatase 67 U/L 40-150 Alanine Aminotransferase 31 U/L 0-55 Aspartate Aminotransferase 20 U/L 5-34 A/G 1.08 Low 1.46-2.46 Glob 3.80 High 2.30-3.50 Indirect Bilirubin 0.70 0.20-0.80 Laboratory test 04/04/2009 [facility] [place] TSH 3.096 uIU/mL 0.350-4.940 finding Lipid Panel 04/12/2008 [facility] [place] Cholesterol 174 mg/dL 112-200 79 Triglyceride 157 mg/dL 1-200 80 HDL 51 mg/dL 30-70 81 Chol/HDL 3.41 Low 4.00-6.70 LDL 107.00 mg/dL 20.00-130.00 82 NHDL 123.00 mg/dL High 0.00-100.00 83 CBC/Automated Differential 03/15/2008 [facility] [place] WBC 5.99 k/uL 4.60 -10.20 Ashli 2.63 2.00-7.50 %N 43.9 % 37.0-80.0 Lym 2.58 K/UL 1.20-4.80 %L 43.1 % 10.0-50.0 [place] 0.353 0.000-0.900 %M 5.89 % 0.00-12.00 Eos 0.351 0.000-0.700 %E 5.85 % 0.00-7.00 Baso 0.078 0.000-0.200 %B 1.31 % 0.00-4.00 RBC 4.61 m/uL 4.04-6.13 Hemoglobin 14.8 g/dL 12.2-18.1 Hematocrit 43.0 % 42.0-53.7 MCV* 93.3 fl 80.0-97.0 MCH* 32.1 pg High 27.0-31.2 MCHC* 34.4 g/dL 31.8-35.4 RDW* 11.3 % Low 11.6-14.8 PLT 276 K/uL 142-424 MPV 8.1 fL 0.0-99.9 Basic Metabolic Panel 03/15/2008 [facility] [place] Glucose 94.00 mg/dL 70.00-110.00 Sodium 140 mmol/L 136-145 Potassium 4.5 mmol/L 3.5-5.1 Chloride 106 mmol/L 98-107 Carbon Dioxide 24.00 mmol/L 22.00-31.00 Urea Nitrogen 13 mg/dL 9-21 GFR 84.10 mL/min 84 Creatinine 1.0 mg/dL 0.7-1.3 Calcium 9.2 mg/dL 8.9-10.4 BUN/CR 13.00 10.00-20.00 Osmo 289.87 275.00-295.00 Lipid Panel 03/15/2008 [facility] [place] Cholesterol 217 mg/dL High 112- 200 85 Triglyceride 115 mg/dL 1-200 86 HDL 46 mg/dL 30-70 87 Chol/HDL 4.72 4.00-6.70 LDL 160.00 mg/dL High 20.00-130.00 88 NHDL 171.00 mg/dL High 0.00-100.00 89 Hepatic Function 03/15/2008 [facility] [place] Total Bilirubin 0.9 mg/dL 0.2-1.2 Panel Direct Bilirubin 0.3 mg/dL 0.0-0.5 Total Protein 7.7 g/dL 6.4-8.3 Albumin 4.6 g/dL 3.5-5.0 Alkaline Phosphatase 73 U/L 40-150 Alanine Aminotransferase 28 U/L 0-55 Aspartate Aminotransferase 21 U/L 5-34 A/G 1.48 1.46-2.46 Glob 3.10 2.30-3.50 Indirect Bilirubin 0.60 0.20-0.80 Laboratory test 03/15/2008 [facility] [place] Occult Negative Negative finding Blood-Stool X3 Urinalysis/Micro 03/15/2008 [facility] [place] Color Lt Yellow Abnormal scopic Appear Clear Abnormal Leuk Negative Negative Nitrite Negative Negative Urobil 0.2 0.2-1.0 Protein Negative Negative pH 6.0 5.0-8.5 Blood Trace-Lysed Abnormal Negative S.G. <1.005 1.005-1.025 Ketone Negative Negative Bili Negative Negative U-Glu Negative Negative U-RBC occ. 0-2 Laboratory test finding 03/15/2008 [facility] [place] PSA 0.32 ng/mL 0.00- 4.00 Free T4 0.94 ng/dL 0.70-1.48 TSH 2.455 uIU/mL 0.350-4.940 Post Vasectomy 06/29/2006 [facility] [place] Sperm Sperm Present Motility Laboratory test 03/05/2006 [facility] Troponin I 0.00 ng/mL 0.00- 0.30 finding Laboratory test 12/19/2005 [facility] [place] Urine Culture No growth. 90 finding Comprehensive 12/19/2005 [facility] Glu 99 mg/dL 70-110 Metabolic Panel Bun 15 mg/dL 9-21 Creat 1.2 mg/dL 0.7-1.3 GFR 68.77 mL/min 91 Na 137 mmol/L 136-145 K 4.1 mmol/L 3.5-5.1 Cl 102 mmol/L 98-107 Co2 27 mmol/L 22-31 T Michael 1.0 mg/dL 0.2-1.2 TP 8.0 g/dL 6.4-8.3 Alb G 4.8 g/dL 3.5-5.0 Alt 46 U/L 0-55 Ast 28 U/L 5-34 Alk P 78 U/L 40-150 Ca 9.5 mg/dL 8.9-10.4 BUN/CR 12.50 10.00-20.00 A/G 1.50 1.46-2.46 Glob 3.20 2.30-3.50 Osmo 284.86 275.00-295.00 CBC/Automated Differential 12/19/2005 [facility] [place] WBC 7.12 k/uL 4.60 -10.20 Ashli 2.83 2.00-7.50 %N 39.7 % 37.0-80.0 Lym 3.27 K/UL 1.20-4.80 %L 46.0 % 10.0-50.0 [place] 0.612 0.000-0.900 %M 8.60 % 0.00-12.00 Eos 0.296 0.000-0.700 %E 4.17 % 0.00-7.00 Baso 0.106 0.000-0.200 %B 1.49 % 0.00-4.00 RBC 4.86 m/uL 4.04-6.13 HGB 15.1 g/dL 12.2-18.1 HCT 44.0 % 42.0-53.7 MCV 90.6 fl 80.0-97.0 MCH 31.1 pg 27.0-31.2 MCHC 34.3 g/dL 31.8-35.4 RDW 11.9 % 11.6-14.8 PLT 267 K/uL 142-424 MPV 8.6 fL 0.0-99.9 Laboratory test finding 12/04/2003 Urine Culture FINAL 92 1 Unless otherwise specified, testing performed by [facility] [address] [address] 2 NORMAL FUNCTION OR MILD RENAL DISEASE:>60 ml/min ADVANCED RENAL DISEASE:15-59 ml/min RENAL FAILURE:<15 ml/min 3 FASTING Fastin hours FASTING Fastin hours FASTING Fastin hours 4 NORMAL FUNCTION OR MILD RENAL DISEASE:>60 ml/min ADVANCED RENAL DISEASE:15-59 ml/min RENAL FAILURE:<15 ml/min 5 GOAL LESS THAN 200 6 GOAL LESS THAN 200 7 GOAL GREATER THAN 45 8 GOAL LESS THAN 100 9 GOAL LESS THAN 100 10 NORMAL FUNCTION OR MILD RENAL DISEASE:>60 ml/min ADVANCED RENAL DISEASE:15-59 ml/min RENAL FAILURE:<15 ml/min 11 NORMAL FUNCTION OR MILD RENAL DISEASE:>60 ml/min ADVANCED RENAL DISEASE:15-59 ml/min RENAL FAILURE:<15 ml/min 12 GOAL LESS THAN 200 13 GOAL LESS THAN 200 14 GOAL GREATER THAN 45 15 GOAL LESS THAN 100 16 GOAL LESS THAN 100 17 NORMAL FUNCTION OR MILD RENAL DISEASE:>60 ml/min ADVANCED RENAL DISEASE:15-59 ml/min RENAL FAILURE:<15 ml/min 18 GOAL LESS THAN 200 19 GOAL LESS THAN 200 20 GOAL GREATER THAN 45 21 GOAL LESS THAN 100 22 GOAL LESS THAN 100 23 GOAL LESS THAN 200 24 GOAL LESS THAN 200 25 GOAL GREATER THAN 45 26 GOAL LESS THAN 100 27 GOAL LESS THAN 100 28 NORMAL FUNCTION OR MILD RENAL DISEASE:>60 ml/min ADVANCED RENAL DISEASE:15-59 ml/min RENAL FAILURE:<15 ml/min 29 NORMAL FUNCTION OR MILD RENAL DISEASE:>60 ml/min ADVANCED RENAL DISEASE:15-59 ml/min RENAL FAILURE:<15 ml/min 30 GOAL LESS THAN 200 31 GOAL LESS THAN 200 32 GOAL GREATER THAN 45 33 GOAL LESS THAN 100 34 GOAL LESS THAN 100 35 NORMAL FUNCTION OR MILD RENAL DISEASE:>60 ml/min ADVANCED RENAL DISEASE:15-59 ml/min RENAL FAILURE:<15 ml/min 36 GOAL LESS THAN 200 37 GOAL LESS THAN 200 38 GOAL GREATER THAN 45 39 GOAL LESS THAN 100 40 GOAL LESS THAN 100 41 NORMAL FUNCTION OR MILD RENAL DISEASE:>60 ml/min ADVANCED RENAL DISEASE:15-59 ml/min RENAL FAILURE:<15 ml/min 42 GOAL LESS THAN 200 43 GOAL LESS THAN 200 44 GOAL GREATER THAN 45 45 GOAL LESS THAN 100 46 GOAL LESS THAN 100 47 432.00 non-resistant 48 NORMAL FUNCTION OR MILD RENAL DISEASE:>60 ml/min ADVANCED RENAL DISEASE:15-59 ml/min RENAL FAILURE:<15 ml/min 49 GOAL LESS THAN 200 50 GOAL LESS THAN 200 51 GOAL GREATER THAN 45 52 GOAL LESS THAN 100 53 GOAL LESS THAN 100 54 576.00 resistant 55 NORMAL FUNCTION OR MILD RENAL DISEASE:>60 ml/min ADVANCED RENAL DISEASE:15-59 ml/min RENAL FAILURE:<15 ml/min 56 GOAL LESS THAN 200 57 GOAL LESS THAN 200 58 GOAL GREATER THAN 45 59 GOAL LESS THAN 100 60 GOAL LESS THAN 100 61 [facility] 69 [facility] [id number] 62 [id number] 63 Essentially negative urine. 64 594.00 resistant 65 [facility] [employer] DEPARTMENT OF PATHOLOGY or Extension [phone] SURGICAL PATHOLOGY REPORT PATIENT: MARINO ERIC : 1960 AGE: 50 Y SEX: M ACCT: [id number] PROCEDURE DATE: 02/17/2011 DATE RECEIVED: 02/18/2011 REQUESTING PHYSICIAN: LORENZO LEE MD LOCATION: [facility] Case No. [id number] FINAL DIAGNOSIS: SKIN TAG, RIGHT LEG (BIOPSY): POLYPOID HYPERTROPHIC DERMAL SCAR. MK0/slm D/T 02/19/11 GROSS DESCRIPTION: Specimen is received in formalin, labeled Marino Eric, lab #[id number], consists of an off-white light joel wrinkled rubbery polypoid papule of skin that is 0.95 x 0.8 x 0.45 cm. The margin is inked black. It is serially sectioned. TS/1 AP/slm D/T 02/18/11 CPT; 49380 CLINICAL DATA: [id number] NONE PROVIDED SPECIMEN SUBMITTED: SKIN TAG(S), RIGHT LEG 702.11 ADDITIONAL COPIES SENT TO: Electronically Signed by: Signed Date and Time: FIDENCIO BRAXTON MD PATHOLOGIST 02/19/2011 17:08 __ Performed at [facility], [address] [place] [address] This report may include one or more immunohistochemistry stain results which use analyte-specific reagents. The interpretation of the above immunohistochemistry stain or stains is guided by published results in the medical literature, provided package information from the casino operations supervisor and by internal review of staining performance and assay validation within the Immunohistochemistry Department of [employer]. This testing has not been cleared or approved by the U.S. Food and Drug Administration (FDA). The FDA has determined that such clearance or approval is not necessary. These tests are used for clinical purposes and should not be regarded as investigational or research. Special stains and/or immunohistochemical stains were performed with appropriately stained positive and negative controls. "" 66 FASTING 67 GOAL LESS THAN 200 68 GOAL LESS THAN 200 69 GOAL GREATER THAN 45 70 GOAL LESS THAN 100 71 GOAL LESS THAN 100 72 NORMAL FUNCTION OR MILD RENAL DISEASE:>60 ml/min ADVANCED RENAL DISEASE:15-59 ml/min RENAL FAILURE:<15 ml/min 73 NORMAL FUNCTION OR MILD RENAL DISEASE:>60 ml/min ADVANCED RENAL DISEASE:15-59 ml/min RENAL FAILURE:<15 ml/min 74 GOAL LESS THAN 200 75 GOAL LESS THAN 200 76 GOAL GREATER THAN 45 77 GOAL LESS THAN 100 78 GOAL LESS THAN 100 79 GOAL LESS THAN 200 80 GOAL LESS THAN 200 81 GOAL GREATER THAN 45 82 GOAL LESS THAN 100 83 GOAL LESS THAN 100 84 NORMAL FUNCTION OR MILD RENAL DISEASE:>60 ml/min ADVANCED RENAL DISEASE:15-59 ml/min RENAL FAILURE:<15 ml/min 85 GOAL LESS THAN 200 86 GOAL LESS THAN 200 87 GOAL GREATER THAN 45 88 GOAL LESS THAN 100 89 GOAL LESS THAN 100 90 [employer] [address] [place], [place] [id number] Debra Sanchez D.O., Ph.D. 91 NORMAL FUNCTION OR MILD RENAL DISEASE:>60 ml/min ADVANCED RENAL DISEASE:15-59 ml/min RENAL FAILURE:<15 ml/min 92 Source: URINE, CLEAN CATCH No growth. Procedures Date Code Description Status 07/08/2018 85743 X-Ray - Knee Complete 4 Or More Views Completed 07/08/2018 77920 Inject/Drain Joint/Bursa Major Completed 10/28/2016 59745 Electrocardiogram Complete Completed 10/28/2016 96057 X-Ray, Spine, Cervical; 2 Or 3 Vies Completed 09/10/2016 82200 Admin Fee For Therapeutic, Prophylactic Or Diagnostic Completed Injection 09/10/2016 69761 X-Ray Knee; One Or Two Views Completed 09/10/201626205 Inject/Drain Joint/Bursa Major Completed 05/12/2011 08937 Screening Test Of Visual Acuity , Quantitative, Completed Bilateral 05/12/2011 58307 Electrocardiogram Complete Completed 05/12/2011 90223 Pure Tone Audiometry, Air Completed 05/12/2011 76927 X-Ray Chest Two Views Frontal & Lateral Completed 02/17/2011 21176 Excise Benign Lesion .6-1CM Trunk/Arm/Leg Completed 02/17/2011 56352 Shave Skin Lesion .6-1CM Trunk/Arm/Leg Completed 05/04/2008 [id number] Colonoscopy Completed 03/15/2008 37851 X-Ray Chest Two Views Frontal & Lateral Completed 03/15/2008 09295 Electrocardiogram Complete Completed 02/22/2007 09666 X-Ray C-Spine Min Of Four Views Completed 02/19/2007 10701 Therapeutic, Prophylactic Inj Completed 05/15/2006 71524 Vasectomy Including Post-Op Semen Exam Completed 03/05/2006 21799 Electrocardiogram Complete Completed 03/05/2006 12920 Therapeutic, Prophylactic Inj Completed 03/05/2006 79510 X-Ray Ribs & Chest Three Views Completed 03/04/2006 09613 X-Ray Chest Two Views Frontal & Lateral Completed 02/11/2005 32841 X-Ray Elbow Complete Completed 05/07/2004 49168 Inject/Drain Joint/Bursa Intermediate Completed 11/13/2003 54317 X-Ray Abdomen Single Ap View Completed Encounters Type Date Location Provider Dx Diagnosis Office Visit 07/15/[address] Lorenzo Lee JR, G20 Parkinson' s disease 1:45p G47.8 Other sleep disorders F02.80 Dementia in oth diseases classd elswhr w/o behavrl disturb Office Visit 07/08/2018 2:00p [address] Osmar Servin M25.562 Pain in left MD Zoran knee G90.09 Other idiopathic peripheral autonomic neuropathy Office Visit 06/08/2018 11:00a [address] Lorenzo Lee G20 Parkinson's disease Olvin MCDONALD MD G25.0 Essential tremor G43.909 Migraine, unsp, not intractable, without status migrainosus E78.2 Mixed hyperlipidemia Z12.5 Encounter for screening for malignant neoplasm of prostate Office Visit 03/11/2018 10:15a Main Office Lorenzo Lee JR G2Nickolas Parkinson's disease G25.0 Essential tremor E78.2 Mixed hyperlipidemia 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, unspecified Z12.12 Encounter for screening for malignant neoplasm of rectum B35.1 Tinea unguium Z12.5 Encounter for screening for malignant neoplasm of prostate Z23 Encounter for immunization Office Visit 10/08/2017 1:45p Main Office Lorenzo Lee JR G2Nickolas Parkinson's disease B35.1 Tinea unguium Office Visit 08/18/2017 8:30a Main Office Boubacar Cottrell G20 Parkinson's disease PA-C G25.0 Essential tremor E78.2 Mixed hyperlipidemia Office Visit 01/06/2017 1:45p Main Office Paulette Coronado L23.7 Allergic contact Mullally, VISUAL DISPLAY MANAGER-BC dermatitis due to plants, except food Office Visit 10/28/2016 10:45a Main Office Lorenzo Lee E78.2 Mixed hyperlipidemia MD TAMARA G20 Parkinson's disease M54.2 Cervicalgia Z12.5 Encounter for screening for malignant neoplasm of prostate Z12.12 Encounter for screening for malignant neoplasm of rectum S80.12xA Contusion of left lower leg, initial encounter Office Visit 09/10/2016 10:45a Main Office Lorenzo Lee JR M25.561 Pain in right knee L03.116 Cellulitis of left lower limb G20 Parkinson's disease Office Visit 05/22/2016 Main Office Maria Isabel Walker, E78.00 Pure hypercholesterolemia, 8:15a PA-C unspecified 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, unspecified Z23 Encounter for immunization J45.998 Other asthma G43.009 Migraine w/o aura, not intractable, w/o status migrainosus Office Visit 12/27/2015 11:30a Main Office Sudhir Pond, L23.9 Allergic contact PA-C dermatitis, unspecified cause R21 Rash and other nonspecific skin eruption Office Visit 10/23/2015 Main Office Lorenzo Lee E78.0 Pure hypercholesterolemia 2:45p MD TAMARA 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, unspecified G25.0 Essential tremor Z12.5 Encounter for screening for malignant neoplasm of prostate Z12.12 Encounter for screening for malignant neoplasm of rectum Office Visit 08/24/2014 10:30a Main Office Lorenzo Lee 332.1 Vikas MCDONALD MD Secondary 333.1 Tremor Essential & Other Forms Office Visit 06/28/2014 11:15a Main Office Lorenzo Lee 332.1 Vikas MCDONALD MD Secondary 333.1 Tremor Essential & Other Forms 346.90 Migraine Unspec W/O Intractable W/O Status Migrainosus Office Visit 12/28/2013 8:45a Main Office Lorenzo Lee 332.1 Vikas MCDONALD MD Secondary 333.1 Tremor Essential & Other Forms 272.0 Hypercholesterolemia Pure 346.90 Migraine Unspec W/O Intractable W/O Status Migrainosus V58.69 Medications Concession Supervisor (Current) Use Encounter V76.44 Screening For Malig Jordy Prostate 799.81 Decreased Libido V76.51 Special Screening For Malignant Neoplasms Colon Office Visit 04/06/2013 9:15a Main Office Lorenzo Lee 332.1 Vikas MCDONALD MD Secondary Office Visit 01/26/2013 2:45p Main Office Lorenzo Lee 332.1 Vikas MCDONALD MD Secondary 333.1 Tremor Essential & Other Forms V04.81 Need For Prophylactic Vaccination & Inoculation/Influenza Office Visit 12/23/2012 8:45a Main Office Lorenzo Lee JR 333.1 Tremor Essential & MD Other Forms 272.0 Hypercholesterolemia Pure V76.44 Screening For Malig Jordy Prostate V76.51 Special Screening For Malignant Neoplasms Colon v58.69 Medications Concession Supervisor (Current) Use Encounter Office Visit 12/20/2011 10:30a Main Office Abraham Marcus 704.[employer] Hair [employer] Hair MD Arsenio Follicle Diseases Other Spec Office Visit 12/02/2011 3:45p Main Office Paulette E. 704.8 Hair & Hair Mullally, VISUAL DISPLAY MANAGER-BC Follicle Diseases Other Spec 493.01 Asthma Extrinsic W/ Status Asthmaticus Office Visit 09/16/2011 2:45p Main Office Maria Isabel Walker, 691.8 Dermatitis Atopic PA-C & Related Conditions Other 332.1 Parkinsonism Secondary Office Visit 05/12/2011 9:15a Main Office Lorenzo Lee 332.1 Vikas MCDONALD MD Secondary 333.1 Tremor Essential & Other Forms 272.0 Hypercholesterolemia Pure 530.11 Esophagitis Reflux V70.0 Examination General Medical Routine AT Health Care Facility V58.69 Medications Concession Supervisor (Current) Use Encounter V76.44 Screening For Malig Jordy Prostate V06.1 Xdfvydnnmf-Ihfwbky-Gdsncxte Combined (DTaP) V76.51 Special Screening For Malignant Neoplasms Colon 302.72 Psychosexual Dysfunction W/ Inhibited Sexual Excitement Office Visit 02/17/2011 11:15a Main Office Lorenzo Lee 332.1 Vikas MCDONALD MD Secondary 333.1 Tremor Essential & Other Forms V04.81 Need For Prophylactic Vaccination & Inoculation/Influenza 702.11 Seborrheic Keratosis Inflamed 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 782.0 Skin Sensation Disturbance Office Visit 05/07/2010 9:30a Main Office Lorenzo Lee 332.1 Vikas MCDONALD MD Secondary 333.1 Tremor Essential & Other Forms Office Visit 04/08/2010 10:00a Main Office Lorenzo Lee JR 333.1 Tremor Essential & MD Other Forms 311 Depressive Disorder Not Elsewhere Spec Office Visit 02/04/2010 10:00a Main Office Lorenzo Lee JR 333.1 Tremor Essential & MD Other Forms 311 Depressive Disorder Not Elsewhere Spec Office Visit 12/26/2009 10:15a Main Office Lorenzo Lee JR 333.1 Tremor Essential & MD Other Forms 311 Depressive Disorder Not Elsewhere Spec Office Visit 11/14/2009 Main Office Lorenzo Lee 272.0 Hypercholesterolemia Pure 9:00a MD TAMARA 311 Depressive Disorder Not Elsewhere Spec 530.11 Esophagitis Reflux 333.1 Tremor Essential & Other Forms 786.09 Dyspnea & Respiratory Abnormalities Other V76.44 Screening For Malig Jordy Prostate Office Visit 04/04/2009 10:30a Main Office Aleksandr Pederson, 796.2 Blood Pressure MD Reading Elevated W/O Hypertension 272.0 Hypercholesterolemia Pure 311 Depressive Disorder Not Elsewhere Spec V04.81 Need For Prophylactic Vaccination & Inoculation/Influenza Office Visit 04/12/2008 10:45a Main Office Lorenzo Lee 530.11 Esophagitis Reflux MD TAMARA 272.0 Hypercholesterolemia Pure 272.9 Lipoid Metabolism Disorders Unspec Office Visit 03/15/2008 9:00a Main Office Lorenzo Lee 787.20 Dysphagia , MD ATMARA Unspecified 780.79 Malaise And Fatigue Other V17.3 History Family Ischemic Heart Disease V76.44 Screening For Malig Jordy Prostate V76.41 Screening Malignant Neoplasm Rectum V04.81 Need For Prophylactic Vaccination & Inoculation/Influenza V03.82 Streptococcus Pneumoniae Vaccination Spec Other V70.0 Examination General Medical Routine AT Health Care Facility Office Visit 08/30/2007 6:45p Main Office Rose Hankins, 346.90 Migraine Unspec MD W/O Intractable W/O Status Migrainosus Office Visit 02/22/2007 2:00p Main Office Abraham Servin 719.58 Stiffness Joint MD Carley Not Elsewhere Classified Other Spec Sites 847.0 Sprains & Strains Neck Office Visit 02/19/2007 10:00a Main Office Arin Valdez, 719.58 Stiffness Joint PA-C Not Elsewhere Classified Other Spec Sites V04.81 Need For Prophylactic Vaccination & Inoculation/Influenza Office Visit 10/15/2006 11:45a Main Office Maria Isabel Walker PA-C 462 Pharyngitis Acute 796.2 Blood Pressure Reading Elevated W/O Hypertension Office Visit 07/17/2006 6:15p Main Office Lorenzo Lee 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 Office Visit 05/08/2006 8:15a Main Office Lorenzo Lee V25.09 Contraceptive MD TAMARA Management Other Office Visit 03/05/2006 4:45p Main Office Maria Isabel Walker, 786.50 Pain Chest Unspec PA-C Office Visit 03/04/2006 2:15p Main Office Filomena Friedman 847.1 Sprains & Strains PA-C Thoracic V04.81 Need For Prophylactic Vaccination & Inoculation/Influenza Office Visit 12/19/2005 11:15a Main Office Filomena Friedman, 780.79 Malaise And PA-C Fatigue Other 446.29 Hypersensitivity Angiitis Other Spec Office Visit 12/01/2005 9:45a Main Office Maria Isabel Walker, 346.90 Migraine Unspec PA-C W/O Intractable W/O Status Migrainosus Office Visit 02/11/2005 1:30p Main Office Maria Isabel Walker, 719.42 Pain Joint Upper PA-C Arm V04.81 Need For Prophylactic Vaccination & Inoculation/Influenza Office Visit 05/07/2004 8:00p Main Office Maria Isabel Walker, 726.32 Epicondylitis PA-C Lateral Office Visit 12/04/2003 11:15a Main Office Justin Murillo, 782.7 Ecchymoses M.D. 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 Status Asthmaticus Office Visit 10/16/2003 3:00p Main Office Justin Murillo, 784.0 Headache M.D. 311 Depressive Disorder Not Elsewhere Spec Office Visit 02/16/2003 11:15a Main Office Lorenzo Lee JR, V15.85 Personal History MD Of Contact & Exposure To Hazard Body Fluids 784.0 Headache 311 Depressive Disorder Not Elsewhere Spec Plan of Treatment Future Appointment(s):09/07/2018 11:00 am - Lorenzo Lee JR, MD at [address]07/15/2018 - oLrenzo Lee JR, MDG20 Parkinson's diseaseComments: Continue current medications Will advise of lab resultsFollow up:G47.8 Other sleep disordersComments:Advised he will be contacted to set up sleep study, [facility], Diag/MzxfyjZ14.80 Dementia in other diseases classified elsewhere without behaNew Medication:Donepezil HCL 5 mg - 1 by mouth every day x2 weeks then 2 everydayComments:Advised they will be contacted to set up brain MRI Advised to take medication as directedMini mentalstate exam done todayReferral:[facility], Radiology/Cl[facility]
--- OUTSIDE RECORDS SUMMARY | 2018-07-23 19:51 | XMS REPORT | Continuity of Care Document ---
:1960 External Reference #:[id number] Author Name Lorenzo Lee JR, MD Address [address] [place] [id number] Care Team Providers Name Role Phone Lorenzo Lee JR., M.D. Primary Care Physician Unavailable Payers Date Identification Numbers Payment Provider Subscriber Effective: 2017 Policy Number: [id number] [facility] Shared Services Marino Carmella Shantelle MCDONALD PayID: [id number] [address] [address] [place] [address] Expires: 2017 Policy Number: [id number] [facility] Shared Services Marino Carmella Shantelle MCDONALD PayID: [id number] [address] [address] [place] [address] Expires: 2016 Policy Number: [id number] [facility] Marino Carmella Shantelle MCDONALD PayID: [id number] [address] [place] [address] Expires: 2016 Policy Number: [id number] [facility] Shared Marino Eric Service PayID: [id number] [address] [address] [place] [address] Advance Directives Description No Information Available Problems [...] JR, MD 09/20 Nystatin 12/26 Hx Cream [id number] apply to Adin A. t/GM area [...] Arsenio Bactroban 12/20/2011 - Hx Cream 2% [id number] apply to [address]. 12/22/2012 affected [...] CPT Code Status Date Vaccine Lot # [id number] Given 03/11/2018 Flu, Multi-Dose Vial W/Preservative (Age 3 Yrs And [id number] Older)Quad 0.5 99652 Given 05/22/2016 Flu, Multi-Dose Vial W/Preservative (Age 3 Yrs And [id number] Older)Quad 0.5 04619 Given 01/26/2013 Flu Shot 3 Yrs And Above (Multi Dose Vial) [id number] 26125 Given 05/12/2011 Adacel - Tdap [facility] [id number] 05/05 cc [id number] 10527 Given 02/17/2011 Flu Shot 3 Yrs And Above (Multi Dose Vial) [id number] 90155 Given 04/04/2009 Flu Shot 3 Yrs And Above (Multi Dose Vial) [id number] 57594 Given 03/15/2008 Pneumococcal 23 Vaccine [id number] 04232 Given 03/15/2008 Flu Shot 3 Yrs And Above (Multi Dose Vial) [id number] 16359 Given 02/19/2007 Flu Shot 3 Yrs And Above (Multi Dose Vial) [id number] 53163 Given 03/04/2006 Flu Shot 3 Yrs And Above (Multi Dose Vial) 52466 Given 02/11/2005 Flu Shot 3 Yrs And Above (Multi Dose Vial) 56613 Given 03/26/2004 Flu Shot 3 Yrs And Above (Multi Dose Vial) 61860 Given 04/08/2000 Td Toxoids 52542 Given 04/08/2000 Influenza Virus Whole Vital Signs [...] Result H/L Range Note Laboratory test 07/15/2018 [facility] Syphilis Screen NEGATIVE (Neg ) 1 finding Esr 5 mm/hr 0-20 Laboratory test finding 07/08/2018 [facility] TSH 1.206 uIU/mL 0.350-4.940 FT4_6 1.06 ng/dL 0.70-1.48 Laboratory test 07/08/2018 [facility] Vitamin B12 437.00 pg/mL 213.00-816.00 finding Arch Comprehensive 07/08/2018 [facility] Glucose 88.00 mg/dL 70.00- 110.00 Metabolic Panel [...] Glob 2 3.80 2.30-4.20 CBC/Automated Differential 07/08/2018 [facility] WBC 7.42 k/uL 4.60 -10.20 Ashli 3.43 2.00-7.50 %N 46.3 % 37.0-80.0 Lym 3.06 K/UL 1.20-4.80 %L 41.2 % 10.0-50.0 Vinton 0.487 0.000-0.900 %M 6.56 % 0.00-12.00 Eos 0.321 0.000-0.700 %E 4.32 % 0.00-7.00 Baso 0.121 0.000-0.200 %B 1.64 % 0.00-4.00 RBC 4.97 m/uL 4.04-6.13 Hemoglobin 15.4 g/dL 12.2-18.1 Hematocrit 44.9 % 42.0-53.7 MCV 90.4 fl 80.0-97.0 MCH 30.9 pg 27.0-31.2 MCHC 34.2 g/dL 31.8-35.4 RDW 11.7 % 11.6-14.8 PLT 250 K/uL 142-424 MPV 6.8 fL 0.0-99.9 Laboratory test 06/08/2018 [facility] PSA Total 0.54 ng/mL 0.00- 4.00 finding Screening CBC/Automated 03/11/2018 [facility] WBC 6.63 k/uL 4.60-10.20 3 Differential Ashli 2.76 2.00-7.50 %N 41.6 % 37.0-80.0 Lym 2.92 K/UL 1.20-4.80 %L 44.0 % 10.0-50.0 Vinton 0.481 0.000-0.900 %M 7.25 % 0.00-12.00 Eos 0.383 0.000-0.700 %E 5.77 % 0.00-7.00 Baso 0.087 0.000-0.200 %B 1.31 % 0.00-4.00 RBC 5.02 m/uL 4.04-6.13 Hemoglobin 15.7 g/dL 12.2-18.1 Hematocrit 47.4 % 42.0-53.7 MCV 94.3 fl 80.0-97.0 MCH 31.2 pg 27.0-31.2 MCHC 33.1 g/dL 31.8-35.4 RDW 11.8 % 11.6-14.8 PLT 245 K/uL 142-424 MPV 7.0 fL 0.0-99.9 Comprehensive 03/11/2018 [facility] Glucose 82.00 mg/dL 70.00- 110.00 Metabolic Panel [...] Glob 2 3.90 2.30-4.20 Lipid Panel(New) 03/11/2018 [facility] Cholesterol 175 mg/dL 112- 200 5 Triglyceride 71 mg/dL 1-200 6 HDL 51 mg/dL 30-70 7 Chol/HDL 3.43 Low 4.00-6.70 NHDL 124.00 mg/dL High 0.00-100.00 8 LDL-C 109.80 mg/dL 20.00-130.00 9 CBC/Automated Differential 10/08/2017 [facility] WBC 7.65 k/uL 4.60 -10.20 Ashli 2.96 2.00-7.50 %N 38.7 % 37.0-80.0 Lym 3.64 K/UL 1.20-4.80 %L 47.6 % 10.0-50.0 Vinton 0.556 0.000-0.900 %M 7.27 % 0.00-12.00 Eos 0.389 0.000-0.700 %E 5.08 % 0.00-7.00 Baso 0.104 0.000-0.200 %B 1.37 % 0.00-4.00 RBC 4.84 m/uL 4.04-6.13 Hemoglobin 14.4 g/dL 12.2-18.1 Hematocrit 43.7 % 42.0-53.7 MCV 90.3 fl 80.0-97.0 MCH 29.8 pg 27.0-31.2 MCHC 33.0 g/dL 31.8-35.4 RDW 11.8 % 11.6-14.8 PLT 229 K/uL 142-424 MPV 6.5 fL 0.0-99.9 Comprehensive 10/08/2017 [facility] Glucose 100.00 mg/dL 70.00- 110.00 Metabolic Panel [...] Glob 2 3.80 2.30-4.20 CBC/Automated Differential 08/18/2017 [facility] WBC 5.92 k/uL 4.60 -10.20 Ashli 2.58 2.00-7.50 %N 43.6 % 37.0-80.0 Lym 2.38 K/UL 1.20-4.80 %L 40.1 % 10.0-50.0 Vinton 0.452 0.000-0.900 %M 7.63 % 0.00-12.00 Eos 0.423 0.000-0.700 %E 7.15 % High 0.00-7.00 Baso 0.089 0.000-0.200 %B 1.50 % 0.00-4.00 RBC 4.98 m/uL 4.04-6.13 Hemoglobin 15.2 g/dL 12.2-18.1 Hematocrit 45.6 % 42.0-53.7 MCV 91.6 fl 80.0-97.0 MCH 30.6 pg 27.0-31.2 MCHC 33.4 g/dL 31.8-35.4 RDW 11.8 % 11.6-14.8 PLT 215 K/uL 142-424 MPV 7.2 fL 0.0-99.9 Comprehensive 08/18/2017 [facility] Glucose 96.00 mg/dL 70.00- 110.00 Metabolic Panel [...] Glob 2 4.10 2.30-4.20 Lipid Panel(New) 08/18/2017 [facility] Cholesterol 184 mg/dL 112- 200 12 Triglyceride 63 mg/dL 1-200 13 HDL 54 mg/dL 30-70 14 Chol/HDL 3.41 Low 4.00-6.70 NHDL 130.00 mg/dL High 0.00-100.00 15 LDL-C 117.40 mg/dL 20.00-130.00 16 Comprehensive 10/28/2016 [facility] Glucose 83.00 mg/dL 70.00- 110.00 Metabolic Panel [...] 0.2-1.2 Glob 2 4.00 2.30-4.20 Order 10/28/2016 [facility] Occult - guiac negative [address] [facility] [place] [address] Digital Rectal [phone] Exam Lipid 10/28/2016 [facility] Cholesterol 185 mg/dL 112-20 18 Panel(New) 0 Triglyceride 65 mg/dL 1-200 19 HDL 50 mg/dL 30-70 20 Chol/HDL 3.70 Low 4.00-6.70 NHDL 135.00 mg/dL High 0.00-100.00 21 LDL-C 122.00 mg/dL 20.00-130.00 22 Laboratory test 10/28/2016 [facility] PSA Total 0.94 ng/mL 0.00- 4.00 finding Screening Lipid Panel(New) 05/22/2016 [facility] Cholesterol 186 mg/dL 112- 200 23 Triglyceride 87 mg/dL 1-200 24 HDL 46 mg/dL 30-70 25 Chol/HDL 4.04 4.00-6.70 NHDL 140.00 mg/dL High 0.00-100.00 26 LDL-C 122.60 mg/dL 20.00-130.00 27 Comprehensive 05/22/2016 [facility] Glucose 86.00 mg/dL 70.00- 110.00 Metabolic Panel [...] Glob 2 3.90 2.30-4.20 CBC/Automated Differential 05/22/2016 [facility] WBC 7.40 k/uL 4.60 -10.20 Ashli 2.93 2.00-7.50 %N 39.6 % 37.0-80.0 Lym 3.39 K/UL 1.20-4.80 %L 45.8 % 10.0-50.0 [place] 0.470 0.000-0.900 %M 6.35 % 0.00-12.00 Eos 0.528 0.000-0.700 %E 7.13 % High 0.00-7.00 Baso 0.081 0.000-0.200 %B 1.10 % 0.00-4.00 RBC 4.81 m/uL 4.04-6.13 Hemoglobin 15.5 g/dL 12.2-18.1 Hematocrit 46.5 % 42.0-53.7 MCV 96.6 fl 80.0-97.0 MCH 32.3 pg High 27.0-31.2 MCHC 33.4 g/dL 31.8-35.4 RDW 12.2 % 11.6-14.8 PLT 229 K/uL 142-424 MPV 6.4 fL 0.0-99.9 Laboratory test 05/22/2016 [facility] TSH 2.635 uIU/mL 0.350-4.940 finding Comprehensive 10/23/2015 [facility] Glucose 77.00 mg/dL 70.00- 110.00 Metabolic Panel [...] 0.2-1.2 Glob 2 4.00 2.30-4.20 Order 10/23/2015 [facility] Digital Rectal negative [address] Exam [place], [place] [id number] [phone] Lipid 10/23/2015 [facility] Cholesterol 183 mg/dL 112-200 30 Panel(New) Triglyceride 89 mg/dL 1-200 31 HDL 55 mg/dL 30-70 32 Chol/HDL 3.33 Low 4.00-6.70 NHDL 128.00 mg/dL High 0.00-100.00 33 LDL-C 110.20 mg/dL 20.00-130.00 34 Laboratory test 10/23/2015 [facility] PSA Total 0.57 ng/mL 0.00- 4.00 finding Screening CBC/Automated 06/28/2014 [facility] WBC 6.09 k/uL 4.60-10.20 Differential Ashli 2.01 2.00-7.50 %N 33.0 % Low 37.0-80.0 Lym 3.00 K/UL 1.20-4.80 %L 49.3 % 10.0-50.0 [place] 0.478 0.000-0.900 %M 7.86 % 0.00-12.00 Eos 0.522 0.000-0.700 %E 8.58 % High 0.00-7.00 Baso 0.073 0.000-0.200 %B 1.20 % 0.00-4.00 RBC 4.99 m/uL 4.04-6.13 Hemoglobin 15.3 g/dL 12.2-18.1 Hematocrit 47.0 % 42.0-53.7 MCV 94.2 fl 80.0-97.0 MCH 30.6 pg 27.0-31.2 MCHC 32.5 g/dL 31.8-35.4 RDW 11.9 % 11.6-14.8 PLT 220 K/uL 142-424 MPV 7.2 fL 0.0-99.9 Comprehensive 06/28/2014 [facility] Glucose 85.00 mg/dL 70.00- 110.00 Metabolic Panel [...] Bilirubin 1.2 mg/dL 0.2-1.2 Lipid Panel 06/28/2014 [facility] Cholesterol 163 mg/dL 112-200 36 Triglyceride 100 mg/dL 1-200 37 HDL 51 mg/dL 30-70 38 Chol/HDL 3.20 Low 4.00-6.70 LDL 106.00 mg/dL 20.00-130.00 39 NHDL 112.00 mg/dL High 0.00-100.00 40 Comprehensive 12/28/2013 [facility] Glucose 93.00 mg/dL 70.00- 110.00 Metabolic Panel [...] Bilirubin 1.1 mg/dL 0.2-1.2 Lipid Panel 12/28/2013 [facility] Cholesterol 189 mg/dL 112-200 42 Triglyceride 73 mg/dL 1-200 43 HDL 49 mg/dL 30-70 44 Chol/HDL 3.86 Low 4.00-6.70 LDL 127.00 mg/dL 20.00-130.00 45 NHDL 140.00 mg/dL High 0.00-100.00 46 Aspirin Assay 12/28/2013 [facility] Asp.Assay 432.00 0.00-550.00 47 non-resi <SEE NOTE> ARU CBC/Automated 12/28/2013 [facility] WBC 7.66 k/uL 4.60-10.20 Differential Ashli 2.62 2.00-7.50 %N 34.2 % Low 37.0-80.0 Lym 3.61 K/UL 1.20-4.80 %L 47.2 % 10.0-50.0 [place] 0.520 0.000-0.900 %M 6.79 % 0.00-12.00 Eos 0.804 High 0.000-0.700 %E 10.50 % High 0.00-7.00 Baso 0.102 0.000-0.200 %B 1.33 % 0.00-4.00 RBC 5.08 m/uL 4.04-6.13 Hemoglobin 15.9 g/dL 12.2-18.1 Hematocrit 47.5 % 42.0-53.7 MCV 93.5 fl 80.0-97.0 MCH 31.3 pg High 27.0-31.2 MCHC 33.5 g/dL 31.8-35.4 RDW 12.0 % 11.6-14.8 PLT 260 K/uL 142-424 MPV 7.0 fL 0.0-99.9 Laboratory test 12/28/2013 [facility] PSA 0.52 ng/mL 0.00-4.00 finding Comprehensive 12/23/2012 [facility] Glucose 101.00 mg/dL 70.00- 110.00 Metabolic Panel [...] Bilirubin 1.0 mg/dL 0.2-1.2 Lipid Panel 12/23/2012 [facility] Cholesterol 189 mg/dL 112-200 49 Triglyceride 80 mg/dL 1-200 50 HDL 48 mg/dL 30-70 51 Chol/HDL 3.94 Low 4.00-6.70 LDL 126.00 mg/dL 20.00-130.00 52 NHDL 141.00 mg/dL High 0.00-100.00 53 Laboratory test 12/23/2012 [facility] PSA 0.43 ng/mL 0.00-4.00 finding Aspirin Assay 12/23/2012 [facility] Asp.Assay 576.00 High 0.00- 550.00 54 resistant ARU CBC/Automated 12/23/2012 [facility] WBC 7.91 k/uL 4.60-10.20 Differential Ashli 2.97 2.00-7.50 %N 37.5 % 37.0-80.0 Lym 3.52 K/UL 1.20-4.80 %L 44.5 % 10.0-50.0 [place] 0.489 0.000-0.900 %M 6.19 % 0.00-12.00 Eos 0.783 High 0.000-0.700 %E 9.90 % High 0.00-7.00 Baso 0.148 0.000-0.200 %B 1.87 % 0.00-4.00 RBC 5.29 m/uL 4.04-6.13 Hemoglobin 16.4 g/dL 12.2-18.1 Hematocrit 50.9 % 42.0-53.7 MCV 96.3 fl 80.0-97.0 MCH 30.9 pg 27.0-31.2 MCHC 32.1 g/dL 31.8-35.4 RDW 11.9 % 11.6-14.8 PLT 289 K/uL 142-424 MPV 6.9 fL 0.0-99.9 CBC/Automated Differential 05/12/2011 [facility] WBC 5.94 k/uL 4.60 -10.20 Ahsli 2.59 2.00-7.50 %N 43.6 % 37.0-80.0 Lym 2.38 K/UL 1.20-4.80 %L 40.0 % 10.0-50.0 [place] 0.431 0.000-0.900 %M 7.25 % 0.00-12.00 Eos 0.481 0.000-0.700 %E 8.09 % High 0.00-7.00 Baso 0.067 0.000-0.200 %B 1.13 % 0.00-4.00 RBC 5.16 m/uL 4.04-6.13 Hemoglobin 15.8 g/dL 12.2-18.1 Hematocrit 47.5 % 42.0-53.7 MCV* 91.9 fl 80.0-97.0 MCH* 30.7 pg 27.0-31.2 MCHC* 33.4 g/dL 31.8-35.4 RDW* 11.9 % 11.6-14.8 PLT 287 K/uL 142-424 MPV 5.9 fL 0.0-99.9 Comprehensive 05/12/2011 [facility] Glucose 95.00 mg/dL 70.00- 110.00 Metabolic Panel [...] 1.4 mg/dL High 0.2-1.2 Lipid Panel 05/12/2011 [facility] Cholesterol 205 mg/dL High 112- 200 56 Triglyceride 59 mg/dL 1-200 57 HDL 53 mg/dL 30-70 58 Chol/HDL 3.87 Low 4.00-6.70 LDL 127.00 mg/dL 20.00-130.00 59 NHDL 152.00 mg/dL High 0.00-100.00 60 Laboratory test finding 05/12/2011 [facility] Free T4 1.18 ng/dL 0.70-1.48 TSH 2.787 uIU/mL 0.350-4.940 PSA 0.58 ng/mL 0.00-4.00 Order 05/12/2011 [facility] Occult - Neg [address] [facility] [place] [address] Rectal Exam [phone] Laboratory test 05/12/2011 [facility] Occult Negative Negative finding Blood-Stool X3 Testosterone 216 ng/dL Low 348-1197 61 Urinalysis/Microscopic 05/12/2011 [facility] Color Yellow Abnormal Appear Clear Abnormal Leuk Negative Negative Nitrite Negative Negative Urobil 0.2 0.2-1.0 Protein Negative Negative pH 6.5 5.0-8.5 Blood Riyqq-Wae-Ibpldn <SEE NOTE> Abnormal Negative 62 S.G. 1.015 1.005-1.025 Ketone Negative Negative Bili Negative Negative U-Glu Negative Negative Comment Essentially nega <SEE NOTE> Abnormal 63 Aspirin Assay 05/12/2011 [facility] Asp.Assay 594.00 High 0.00- 550.00 64 resistant ARU Laboratory 02/17/2011 [facility] Surgical Path SEE NOTE 65 test finding Order 11/14/2009 [facility] Occult - neg [address] [facility] [place] [place] [address] Exam [phone] Lipid Panel 11/14/2009 [facility] Cholesterol 181 mg/dL 112-200 66 , 67 Triglyceride 73 mg/dL 1-200 68 HDL 52 mg/dL 30-70 69 Chol/HDL 3.48 Low 4.00-6.70 LDL 141.00 mg/dL High 20.00-130.00 70 NHDL 129.00 mg/dL High 0.00-100.00 71 Comprehensive 11/14/2009 [facility] Glucose 102.00 mg/dL 70.00- 110.00 Metabolic Panel [...] CaC 9.30 mg/dL 8.90-10.40 CBC/Automated Differential 11/14/2009 [facility] WBC 7.00 k/uL 4.60 -10.20 Ashli 2.85 2.00-7.50 %N 40.7 % 37.0-80.0 Lym 3.11 K/UL 1.20-4.80 %L 44.4 % 10.0-50.0 [place] 0.469 0.000-0.900 %M 6.70 % 0.00-12.00 Eos 0.480 0.000-0.700 %E 6.87 % 0.00-7.00 Baso 0.091 0.000-0.200 %B 1.31 % 0.00-4.00 RBC 4.97 m/uL 4.04-6.13 Hemoglobin 15.5 g/dL 12.2-18.1 Hematocrit 47.1 % 42.0-53.7 MCV* 94.7 fl 80.0-97.0 MCH* 31.3 pg High 27.0-31.2 MCHC* 33.0 g/dL 31.8-35.4 RDW* 11.6 % 11.6-14.8 PLT 266 K/uL 142-424 MPV 8.4 fL 0.0-99.9 Laboratory test finding 11/14/2009 [facility] Free T4 1.01 ng/dL 0.70-1.48 TSH 2.572 uIU/mL 0.350-4.940 PSA 0.42 ng/mL 0.00-4.00 Basic Metabolic 04/04/2009 [facility] Glucose 117.00 mg/dL High 70.00-110.00 Panel Sodium 138 mmol/L 136-145 Potassium 4.2 mmol/L 3.5-5.1 Chloride 105 mmol/L 98-107 Carbon Dioxide 24.00 mmol/L 22.00-31.00 Urea Nitrogen 12 mg/dL 9-21 GFR 67.85 mL/min 73 Creatinine 1.2 mg/dL 0.7-1.3 Calcium 9.4 mg/dL 8.9-10.4 BUN/CR 10.00 10.00-20.00 Osmo 286.79 275.00-295.00 CBC/Automated Differential 04/04/2009 [facility] WBC 5.81 k/uL 4.60 -10.20 Ashli 2.64 2.00-7.50 %N 45.3 % 37.0-80.0 Lym 2.49 K/UL 1.20-4.80 %L 42.8 % 10.0-50.0 [place]inton 0.317 0.000-0.900 %M 5.45 % 0.00-12.00 Eos 0.292 0.000-0.700 %E 5.02 % 0.00-7.00 Baso 0.081 0.000-0.200 %B 1.40 % 0.00-4.00 RBC 4.97 m/uL 4.04-6.13 Hemoglobin 15.3 g/dL 12.2-18.1 Hematocrit 45.0 % 42.0-53.7 MCV* 90.5 fl 80.0-97.0 MCH* 30.8 pg 27.0-31.2 MCHC* 34.1 g/dL 31.8-35.4 RDW* 11.5 % Low 11.6-14.8 PLT 282 K/uL 142-424 MPV 7.9 fL 0.0-99.9 Lipid Panel 04/04/2009 [facility] Cholesterol 213 mg/dL High 112- 200 74 Triglyceride 82 mg/dL 1-200 75 HDL 48 mg/dL 30-70 76 Chol/HDL 4.44 4.00-6.70 LDL 159.00 mg/dL High 20.00-130.00 77 NHDL 165.00 mg/dL High 0.00-100.00 78 Hepatic Function 04/04/2009 [facility] Total Bilirubin 1.0 mg/dL 0.2-1.2 Panel Direct Bilirubin 0.3 mg/dL 0.0-0.5 Total Protein 7.9 g/dL 6.4-8.3 Albumin 4.1 g/dL 3.5-5.0 Alkaline Phosphatase 67 U/L 40-150 Alanine Aminotransferase 31 U/L 0-55 Aspartate Aminotransferase 20 U/L 5-34 A/G 1.08 Low 1.46-2.46 Glob 3.80 High 2.30-3.50 Indirect Bilirubin 0.70 0.20-0.80 Laboratory test 04/04/2009 [facility] TSH 3.096 uIU/mL 0.350-4.940 finding Lipid Panel 04/12/2008 [facility] Cholesterol 174 mg/dL 112-200 79 Triglyceride 157 mg/dL 1-200 80 HDL 51 mg/dL 30-70 81 Chol/HDL 3.41 Low 4.00-6.70 LDL 107.00 mg/dL 20.00-130.00 82 NHDL 123.00 mg/dL High 0.00-100.00 83 CBC/Automated Differential 03/15/2008 [facility] WBC 5.99 k/uL 4.60 -10.20 Ashli 2.63 2.00-7.50 %N 43.9 % 37.0-80.0 Lym 2.58 K/UL 1.20-4.80 %L 43.1 % 10.0-50.0 [place] 0.353 0.000-0.900 %M 5.89 % 0.00-12.00 Eos 0.351 0.000-0.700 %E 5.85 % 0.00-7.00 Baso 0.078 0.000-0.200 %B 1.31 % 0.00-4.00 RBC 4.61 m/uL 4.04-6.13 Hemoglobin 14.8 g/dL 12.2-18.1 Hematocrit 43.0 % 42.0-53.7 MCV* 93.3 fl 80.0-97.0 MCH* 32.1 pg High 27.0-31.2 MCHC* 34.4 g/dL 31.8-35.4 RDW* 11.3 % Low 11.6-14.8 PLT 276 K/uL 142-424 MPV 8.1 fL 0.0-99.9 Basic Metabolic Panel 03/15/2008 [facility] Glucose 94.00 mg/dL 70.00-110.00 Sodium 140 mmol/L 136-145 Potassium 4.5 mmol/L 3.5-5.1 Chloride 106 mmol/L 98-107 Carbon Dioxide 24.00 mmol/L 22.00-31.00 Urea Nitrogen 13 mg/dL 9-21 GFR 84.10 mL/min 84 Creatinine 1.0 mg/dL 0.7-1.3 Calcium 9.2 mg/dL 8.9-10.4 BUN/CR 13.00 10.00-20.00 Osmo 289.87 275.00-295.00 Lipid Panel 03/15/2008 [facility] Cholesterol 217 mg/dL High 112- 200 85 Triglyceride 115 mg/dL 1-200 86 HDL 46 mg/dL 30-70 87 Chol/HDL 4.72 4.00-6.70 LDL 160.00 mg/dL High 20.00-130.00 88 NHDL 171.00 mg/dL High 0.00-100.00 89 Hepatic Function 03/15/2008 [facility] Total Bilirubin 0.9 mg/dL 0.2-1.2 Panel Direct Bilirubin 0.3 mg/dL 0.0-0.5 Total Protein 7.7 g/dL 6.4-8.3 Albumin 4.6 g/dL 3.5-5.0 Alkaline Phosphatase 73 U/L 40-150 Alanine Aminotransferase 28 U/L 0-55 Aspartate Aminotransferase 21 U/L 5-34 A/G 1.48 1.46-2.46 Glob 3.10 2.30-3.50 Indirect Bilirubin 0.60 0.20-0.80 Laboratory test 03/15/2008 [facility] Occult Negative Negative finding Blood-Stool X3 Urinalysis/Micro 03/15/2008 [facility] Color Lt Yellow Abnormal scopic Appear Clear Abnormal Leuk Negative Negative Nitrite Negative Negative Urobil 0.2 0.2-1.0 Protein Negative Negative pH 6.0 5.0-8.5 Blood Trace-Lysed Abnormal Negative S.G. <1.005 1.005-1.025 Ketone Negative Negative Bili Negative Negative U-Glu Negative Negative U-RBC occ. 0-2 Laboratory test finding 03/15/2008 [facility] PSA 0.32 ng/mL 0.00- 4.00 Free T4 0.94 ng/dL 0.70-1.48 TSH 2.455 uIU/mL 0.350-4.940 Post Vasectomy 06/29/2006 [facility] Sperm Sperm Present Motility Laboratory test 03/05/2006 [facility] Troponin I 0.00 ng/mL 0.00- 0.30 finding Laboratory test 12/19/2005 [facility] Urine Culture No growth. 90 finding Comprehensive 12/19/2005 [facility] Glu 99 mg/dL 70-110 Metabolic Panel Bun [...] 2.30-3.50 Osmo 284.86 275.00-295.00 CBC/Automated Differential 12/19/2005 [facility] WBC 7.12 k/uL 4.60 -10.20 Ashli 2.83 2.00-7.50 %N 39.7 % 37.0-80.0 Lym 3.27 K/UL 1.20-4.80 %L 46.0 % 10.0-50.0 [place]inton 0.612 0.000-0.900 %M 8.60 % 0.00-12.00 Eos [...] Unless otherwise specified, testing performed by Laboratory [place] [employer] [address] [address] 2 NORMAL FUNCTION OR MILD RENAL DISEASE:>60 [...] 60 GOAL LESS THAN 100 61 [facility] 69 [facility] [id number] 62 Povmv-Lnv-Dfkrgwnyh 63 Essentially negative urine. 64 594.00 resistant 65 [facility] [email or web address] DEPARTMENT OF PATHOLOGY or Extension 8254 SURGICAL PATHOLOGY REPORT PATIENT: MARINO ERIC : 1960 AGE: 50 Y SEX: M ACCT: [id number] PROCEDURE DATE: 02/17/2011 DATE RECEIVED: 02/18/2011 REQUESTING PHYSICIAN: LORENZO LEE MD LOCATION: [facility] Case No. [id number] FINAL DIAGNOSIS: SKIN TAG, RIGHT LEG (BIOPSY): POLYPOID HYPERTROPHIC DERMAL SCAR. MK0/slm D/T 02/19/11 GROSS DESCRIPTION: Specimen is received in formalin, labeled Marino Eric, lab #[id number], consists of an off-white light joel wrinkled rubbery polypoid papule of skin that is 0.95 x 0.8 x 0.45 cm. The margin is inked black. It is serially sectioned. TS/1 AP/slm D/T 02/18/11 CPT; 55530 CLINICAL DATA: [id number] NONE PROVIDED SPECIMEN SUBMITTED: SKIN TAG(S), RIGHT LEG 702.11 ADDITIONAL COPIES SENT TO: Electronically Signed by: Signed Date and Time: FIDENCIO BRAXTON MD PATHOLOGIST 02/19/2011 17:08 __ Performed at [facility], [address] [place] [address] This report may include one or more immunohistochemistry stain results which use analyte-specific reagents. The interpretation of the above immunohistochemistry stain or stains is guided by published results in the medical literature, provided package information from the carrier packer and by internal review of staining performance and assay validation within the Immunohistochemistry Department of [employer]. This testing has not been cleared or [...] 100 89 GOAL LESS THAN 100 90 [employer] [address] [place], [place] [id number] Debra Sanchez D.O., Ph.D. 91 NORMAL FUNCTION OR MILD RENAL DISEASE:>60 ml/min ADVANCED RENAL DISEASE:15-59 ml/min RENAL FAILURE:<15 ml/min 92 Source: URINE, CLEAN CATCH No growth. Procedures Date Code Description Status 07/08/2018 95023 X-Ray - Knee Complete 4 Or More Views Completed 07/08/2018 48310 Inject/Drain Joint/Bursa Major Completed 10/28/2016 79643 Electrocardiogram Complete Completed 10/28/2016 10300 X-Ray, Spine, Cervical; 2 Or 3 Vies Completed 09/10/2016 30694 Admin Fee For Therapeutic, Prophylactic Or Diagnostic Completed Injection 09/10/2016 39750 X-Ray Knee; One Or Two Views Completed 09/10/201694029 Inject/Drain Joint/Bursa Major Completed 05/12/2011 56469 Screening Test Of Visual Acuity , Quantitative, Completed Bilateral 05/12/2011 89707 Electrocardiogram Complete Completed 05/12/2011 81339 Pure Tone Audiometry, Air Completed 05/12/2011 45403 X-Ray Chest Two Views Frontal & Lateral Completed 02/17/2011 55494 Excise Benign Lesion .6-1CM Trunk/Arm/Leg Completed 02/17/2011 92556 Shave Skin Lesion .6-1CM Trunk/Arm/Leg Completed 05/04/2008 29953002 Colonoscopy Completed 03/15/2008 47332 X-Ray Chest Two Views Frontal & Lateral Completed 03/15/2008 37561 Electrocardiogram Complete Completed 02/22/2007 84626 X-Ray C-Spine Min Of Four Views Completed 02/19/2007 90496 Therapeutic, Prophylactic Inj Completed 05/15/2006 29088 Vasectomy Including Post-Op Semen Exam Completed 03/05/2006 93270 Electrocardiogram Complete Completed 03/05/2006 88570 Therapeutic, Prophylactic Inj Completed 03/05/2006 81580 X-Ray Ribs & Chest Three Views Completed 03/04/2006 12832 X-Ray Chest Two Views Frontal & Lateral Completed 02/11/2005 25850 X-Ray Elbow Complete Completed 05/07/2004 57699 Inject/Drain Joint/Bursa Intermediate Completed 11/13/2003 50345 X-Ray Abdomen Single Ap View Completed Encounters [...] Office Paulette Coronado L23.7 Allergic contact Mullally, [employer] dermatitis due to plants, except food Office [...] W/O Intractable W/O Status Migrainosus V58.69 Medications Guide Changer (Current) Use Encounter V76.44 Screening For Malig [...] Screening For Malignant Neoplasms Colon v58.69 Medications Guide Changer (Current) Use Encounter Office Visit 12/20/2011 10:30a Main Office Abraham Marcus [facility] MD Arsenio Follicle Diseases Other Spec Office Visit 12/02/2011 3:45p Main Office Paulette E. 704.8 Hair & Hair Mullally, [employer] Follicle Diseases Other Spec 493.01 Asthma Extrinsic [...] Routine AT [facility] Care Facility V58.69 Medications Guide Changer (Current) Use Encounter V76.44 Screening For Malig Jordy Prostate V06.1 Skdcvqtfqp-Groptxd-Xhjdprgn Combined (DTaP) V76.51 Special Screening For Malignant [...] Office Lorenzo Lee 787.20 Dysphagia , MD TAMARA Unspecified 780.79 Malaise And Fatigue Other V17.3 [...] MD at [address] Side07/15/2018 - Lorenzo Lee JR, MDG20 Parkinson's diseaseComments: Continue current medications Will advise of lab resultsFollow up:G47.8 Other sleep disordersComments:Advised he will be contacted to set up sleep study, [facility], Sleep [facility], Diag/VighweU47.80 Dementia in other diseases classified elsewhere without behaNew Medication:Donepezil HCL 5 mg - 1 by mouth every day x2 weeks then 2 everydayComments:Advised they will be contacted to set up brain MRI Advised to take medication as directedMini mentalstate exam done todayReferral:[facility] Radiology/[facility]
--- OUTSIDE RECORDS SUMMARY | 2018-07-23 19:51 | XMS REPORT | Continuity of Care Document ---
:1960 External Reference #:[id number] Author Name Osmar Meehan MD Address [address] [place] [address] [place] [address] Care Team Providers Name Role Phone Lorenzo Lee JR., M.D. Primary Care Physician Unavailable Payers Date Identification Numbers Payment Provider Subscriber Effective: 2017 Policy Number: [id number] [facility] Shared Services Marino Jenkinscourtney MCDONALD PayID: [id number] [address] [address] [place] [address] Expires: 2017 Policy Number: [id number] [facility] Shared Services Mairno Weir Shantelle MCDONALD PayID: [id number] [address] [address] [place] [address] Expires: 2016 Policy Number: [id number] [facility] Marino Eric PayID: [id number] [address] [place] [address] Expires: 2016 Policy Number: [id number] [facility] Marino Eric JR Service PayID: [id number] [address] [address] [place] [address] Advance Directives Description No Information Available Problems [...] Work Status currently working Tobacco Use Reviewed: 07/08/18 Never Smoked Cigarettes Smoking Status Reviewed: 07/08/18 Never Smoked Cigarettes ETOH Use Currently consumes alcohol ETOH Use Currently consumes 2 single drinks of liquor daily Tobacco Use Reviewed: 07/08/18 Patient has never smoked Allergies, Adverse Reactions, Alerts Description No Known Drug Allergies Medications Medication Date Status Form Strength Qnty SIG Indications Ordering Provider Terbinafine HCL 10/08 Active Tablets 250mg 28tab take 1 B35.1 s tablet by Juan Alberto mouth daily MD TAMARA for fungal nail disease (plan allows # days) Comtan 09/10 Active Tablets 200mg 60tab 1 by mouth G20 s twice a day Juan Alberto MCDONALD MD Ventolin HFA 05/22 Active Aerosol 108(90Bas 1unit 1-2 puffs e) s every 4-6 [place] mcg/Act hours as MD TAMARA needed Ropinirole HCL 01/09 Active Tablets 4mg 270ta 1 by mouth G21.9 bs three times Juan Alberto a day MD TAMARA Paxil 12/28 Active Tablets 20mg 90tab 1 by mouth G43.909 s every day Juan Alberto MCDONALD MD Sinemet CR 02/09 Active Tablets 50-200mg 180ta 1 by mouth ER bs twice a day Juan Alberto MCDONALD MD Aspirin 10/15 Active Tablets 81mg [address] Juan Alberto MCDONALD MD Multivitamins 05/07 Active Tablets 1 PO qd ARI Walker Dramamine Active Tablets 100mg OTC 1 by mouth twice a day Juan Alberto MCDONALD MD Methylprednisolone 10/28 Hx Tablets 4mg 1Pack per pack M54.2 directions Juan Alberto Michelle JR, MD 11/17 Cefdinir 09/10 Hx Capsules 300mg 20cap 2 by mouth L03.116 s every day Juan Alberto Michelle JR, MD 09/20 Nystatin 08/25 Hx Cream [id number] 90gm apply to Adin A. t/GM area [...] 2 by mouth 332.1 bs three times Juan Alberto - mayo zhang JR, MD 01/09 Requip 04/06 Hx Tablets 2mg 270ta [...] Patches 24HR 4mg/24HR 1 patch q 24 01/26/2013 hours Juan Alberto MCDONALD MD Neupro 12/23/2012 - Hx Patches 24HR 2mg/24HR [id number] apply q 24 01/06/2013 hrs. Juan Alberto MCDONALD MD Mirapex 12/22/2012 - Hx Tablets 1.5mg 1 po tid rx 332.1 Lorenzo 12/23/2012 not printed Juan Alberto MCDONALD MD 333.1 Bactrim DS 12/20/2011 - Hx Tablets 800-160mg 20tabs 1 po bid x Abraham P. 12/30/2011 10 days MD Arsenio Bactroban 12/20/2011 - Hx Cream 2% [id number] apply to 704 Abraham P. 12/22/2012 affected .8 MD Arsenio skin bid prn Keflex 12/02/2011 - Hx Capsules 500mg 20caps 1 po bid x 704 Paulette E. 12/12/2011 10 days .8 [facility] Proair HFA 12/02/2011 - Hx Aerosol 108(90Base) 1units 1-2 puffs 493 Paulette E. 10/23/2015 mcg/ac q4-6 prn .01 Gabbie wheezing/so ROMULO b Prednisone 09/16/2011 - Hx Tablets 20mg [...] DR 20mg 30caps 1 po qd 530.11 Bg 02/17/2011 MD Aleksandr Paxil 11/14/2009 - Hx [...] 02/19/2007 1 PO On Days Juan Alberto 2-Bo MCDONALD MD Ibuprofen 05/15/2006 - Hx Tablets 800mg 90tabs 1 PO tid With Lorenzo 10/15/2006 Food prn Juan Alberto MCDONALD MD Valium 05/08/2006 - Hx Tablets 10mg 1tabs 1 po 1 hour 05/15/2006 prior to Juan Alberto rey JR, MD Lortamaicol 03/05/2006 - Hx Tablets 7.5mg;5 30tabs 1 q 4-6 hrs 05/08/2006 00 mg prn Juan Alberto MCDONALD MD Paxil 05/07/2004 - Hx Tablets 30mg 30tabs 1 po qd 11/14/2009 Juan Alberto MCDONALD MD Maxair 05/07/2004 - Hx Aerosol 0.2mg/A 1units 2 puffs qid 493.90 Lorenzo 12/02/2011 ctuatio prcourtney valdez JR, MD Motrin 05/07/2004 - Hx [...] Zoran, Acetonide) Depo-Medrol 80 Administered Injection Paulette EEstephanie MG 017 NEO CartwrightELIAS Kenalog 80MG Administered Injection Lorenzo (Triamcinolone 017 [place] Acetonide) MD TAMARA Toradol, 60 MG Administered Injection Courtney, 007 ARI Hinkle Toradol, 15 MG Administered Injection Maria Isabel 006 ARI Walker Immunizations CPT Code Status Date Vaccine Lot # [id number] Given 03/11/2018 Flu, Multi-Dose Vial W/Preservative (Age 3 Yrs And [id number] Older)Quad 0.5 54755 Given 05/22/2016 Flu, Multi-Dose Vial W/Preservative (Age 3 Yrs And [id number] Older)Quad 0.5 53480 Given 01/26/2013 Flu Shot 3 Yrs And Above (Multi Dose Vial) [id number] 34277 Given 05/12/2011 Adacel - Tdap [facility] [id number] 05/05 cc [id number] 10625 Given 02/17/2011 Flu Shot 3 Yrs And Above (Multi Dose Vial) [id number] 72045 Given 04/04/2009 Flu Shot 3 Yrs And Above (Multi Dose Vial) [id number] 64677 Given 03/15/2008 Pneumococcal 23 Vaccine [id number] 05418 Given 03/15/2008 Flu Shot 3 Yrs And Above (Multi Dose Vial) [id number] 93551 Given 02/19/2007 Flu Shot 3 Yrs And Above (Multi Dose Vial) [id number] 81278 Given 03/04/2006 Flu Shot 3 Yrs And Above (Multi Dose Vial) 94313 Given 02/11/2005 Flu Shot 3 Yrs And Above (Multi Dose Vial) 09116 Given 03/26/2004 Flu Shot 3 Yrs And Above (Multi Dose Vial) 95245 Given 04/08/2000 Td Toxoids 89850 Given 04/08/2000 Influenza Virus Whole Vital Signs Date Vital Result Comment 07/08/2018 2:21pm BP Systolic 120 mmHg BP [...] Test Result H/L Range Note Laboratory test 07/08/2018 [facility] TSH 1.206 uIU/mL 0.350-4.940 finding FT4_6 1.06 ng/dL 0.70-1.48 Laboratory test 07/08/2018 [facility] Vitamin B12 437.00 pg/mL 213.00-816.00 finding Arch CBC/Automated 07/08/2018 [facility] WBC 7.42 k/uL 4.60-10.20 Differential Ashli 3.43 2.00-7.50 %N 46.3 % 37.0-80.0 Lym 3.06 K/UL 1.20-4.80 %L 41.2 % 10.0-50.0 [place] 0.487 0.000-0.900 %M 6.56 % 0.00-12.00 Eos 0.321 0.000-0.700 %E 4.32 % 0.00-7.00 Baso 0.121 0.000-0.200 %B 1.64 % 0.00-4.00 RBC 4.97 m/uL 4.04-6.13 Hemoglobin 15.4 g/dL 12.2-18.1 Hematocrit 44.9 % 42.0-53.7 MCV 90.4 fl 80.0-97.0 MCH 30.9 pg 27.0-31.2 MCHC 34.2 g/dL 31.8-35.4 RDW 11.7 % 11.6-14.8 PLT 250 K/uL 142-424 MPV 6.8 fL 0.0-99.9 Comprehensive 07/08/2018 [facility] Glucose 88.00 mg/dL 70.00- 110.00 Metabolic Panel Urea Nitrogen 16 mg/dL 8-21 CreaC 0.9 mg/dL 0.7-1.3 GFR 89.13 mL/min 1 Na-C 140 mmol/L 136-145 K-C 4.1 mmol/L [...] 0.8 mg/dL 0.2-1.2 Glob 2 3.80 2.30-4.20 Laboratory test 06/08/2018 [facility] PSA Total 0.54 ng/mL 0.00- 4.00 finding Screening CBC/Automated 03/11/2018 [facility] WBC 6.63 k/uL 4.60-10.20 2 Differential Ashli 2.76 2.00-7.50 %N 41.6 % 37.0-80.0 Lym 2.92 K/UL 1.20-4.80 %L 44.0 % 10.0-50.0 [place] 0.481 0.000-0.900 %M 7.25 % 0.00-12.00 Eos 0.383 0.000-0.700 %E 5.77 % 0.00-7.00 Baso 0.087 0.000-0.200 %B 1.31 % 0.00-4.00 RBC 5.02 m/uL 4.04-6.13 Hemoglobin 15.7 g/dL 12.2-18.1 Hematocrit 47.4 % 42.0-53.7 MCV 94.3 fl 80.0-97.0 MCH 31.2 pg 27.0-31.2 MCHC 33.1 g/dL 31.8-35.4 RDW 11.8 % 11.6-14.8 PLT 245 K/uL 142-424 MPV 7.0 fL 0.0-99.9 Comprehensive 03/11/2018 [facility] Glucose 82.00 mg/dL 70.00- 110.00 Metabolic Panel Urea Nitrogen 14 mg/dL 9-21 CreaC 0.9 mg/dL 0.7-1.3 GFR 97.76 mL/min 3 Na-C 139 mmol/L 136-145 K-C 4.4 mmol/L [...] Glob 2 3.90 2.30-4.20 Lipid Panel(New) 03/11/2018 [facility] Cholesterol 175 mg/dL 112- 200 4 Triglyceride 71 mg/dL 1-200 5 HDL 51 mg/dL 30-70 6 Chol/HDL 3.43 Low 4.00-6.70 NHDL 124.00 mg/dL High 0.00-100.00 7 LDL-C 109.80 mg/dL 20.00-130.00 8 CBC/Automated Differential 10/08/2017 [facility] WBC 7.65 k/uL 4.60 -10.20 Ashli 2.96 2.00-7.50 %N 38.7 % 37.0-80.0 Lym 3.64 K/UL 1.20-4.80 %L 47.6 % 10.0-50.0 [place] 0.556 0.000-0.900 %M 7.27 % 0.00-12.00 Eos 0.389 0.000-0.700 %E 5.08 % 0.00-7.00 Baso 0.104 0.000-0.200 %B 1.37 % 0.00-4.00 RBC 4.84 m/uL 4.04-6.13 Hemoglobin 14.4 g/dL 12.2-18.1 Hematocrit 43.7 % 42.0-53.7 MCV 90.3 fl 80.0-97.0 MCH 29.8 pg 27.0-31.2 MCHC 33.0 g/dL 31.8-35.4 RDW 11.8 % 11.6-14.8 PLT 229 K/uL 142-424 MPV 6.5 fL 0.0-99.9 Comprehensive 10/08/2017 [facility] Glucose 100.00 mg/dL 70.00- 110.00 Metabolic Panel Urea Nitrogen 11 mg/dL 9-21 CreaC 0.9 mg/dL 0.7-1.3 GFR 95.30 mL/min 9 Na-C 140 mmol/L 136-145 K-C 4.2 mmol/L [...] Glob 2 3.80 2.30-4.20 CBC/Automated Differential 08/18/2017 [facility] WBC 5.92 k/uL 4.60 -10.20 Ashli 2.58 2.00-7.50 %N 43.6 % 37.0-80.0 Lym 2.38 K/UL 1.20-4.80 %L 40.1 % 10.0-50.0 [place] 0.452 0.000-0.900 %M 7.63 % 0.00-12.00 Eos 0.423 0.000-0.700 %E 7.15 % High 0.00-7.00 Baso 0.089 0.000-0.200 %B 1.50 % 0.00-4.00 RBC 4.98 m/uL 4.04-6.13 Hemoglobin 15.2 g/dL 12.2-18.1 Hematocrit 45.6 % 42.0-53.7 MCV 91.6 fl 80.0-97.0 MCH 30.6 pg 27.0-31.2 MCHC 33.4 g/dL 31.8-35.4 RDW 11.8 % 11.6-14.8 PLT 215 K/uL 142-424 MPV 7.2 fL 0.0-99.9 Comprehensive 08/18/2017 [facility] Glucose 96.00 mg/dL 70.00- 110.00 Metabolic Panel Urea Nitrogen 14 mg/dL 9-21 CreaC 1.0 mg/dL 0.7-1.3 GFR 81.19 mL/min 10 Na-C 140 mmol/L 136-145 K-C 4.4 mmol/L [...] Glob 2 4.10 2.30-4.20 Lipid Panel(New) 08/18/2017 [facility] Cholesterol 184 mg/dL 112- 200 11 Triglyceride 63 mg/dL 1-200 12 HDL 54 mg/dL 30-70 13 Chol/HDL 3.41 Low 4.00-6.70 NHDL 130.00 mg/dL High 0.00-100.00 14 LDL-C 117.40 mg/dL 20.00-130.00 15 Order 10/28/2016 [facility] Occult - guiac [address] [place] [address] Digital Rectal [phone] Exam Comprehensive 10/28/2016 [facility] Glucose 83.00 mg/dL 70.00 Metabolic Panel -110. 00 Urea Nitrogen 14 mg/dL 9-21 CreaC 0.9 mg/dL 0.7-1.3 GFR 98.22 mL/min 16 Na-C 139 mmol/L 136-145 K-C 4.4 mmol/L [...] 0.8 mg/dL 0.2-1.2 Glob 2 4.00 2.30-4.20 Lipid Panel(New) 10/28/2016 [facility] Cholesterol 185 mg/dL 112- 200 17 Triglyceride 65 mg/dL 1-200 18 HDL 50 mg/dL 30-70 19 Chol/HDL 3.70 Low 4.00-6.70 NHDL 135.00 mg/dL High 0.00-100.00 20 LDL-C 122.00 mg/dL 20.00-130.00 21 Laboratory test 10/28/2016 [facility] PSA Total 0.94 ng/mL 0.00- 4.00 finding Screening Lipid Panel(New) 05/22/2016 [facility] Cholesterol 186 mg/dL 112- 200 22 Triglyceride 87 mg/dL 1-200 23 HDL 46 mg/dL 30-70 24 Chol/HDL 4.04 4.00-6.70 NHDL 140.00 mg/dL High 0.00-100.00 25 LDL-C 122.60 mg/dL 20.00-130.00 26 Comprehensive 05/22/2016 [facility] Glucose 86.00 mg/dL 70.00- 110.00 Metabolic Panel Urea Nitrogen 18 mg/dL 9-21 CreaC 1.1 mg/dL 0.7-1.3 GFR 76.24 mL/min 27 Na-C 137 mmol/L 136-145 K-C 4.4 mmol/L [...] Glob 2 3.90 2.30-4.20 CBC/Automated Differential 05/22/2016 [facility] WBC 7.40 k/uL 4.60 -10.20 Ashli 2.93 2.00-7.50 %N 39.6 % 37.0-80.0 Lym 3.39 K/UL 1.20-4.80 %L 45.8 % 10.0-50.0 [place] 0.470 0.000-0.900 %M 6.35 % 0.00-12.00 Eos 0.528 0.000-0.700 %E 7.13 % High 0.00-7.00 Baso 0.081 0.000-0.200 %B 1.10 % 0.00-4.00 RBC 4.81 m/uL 4.04-6.13 Hemoglobin 15.5 g/dL 12.2-18.1 Hematocrit 46.5 % 42.0-53.7 MCV 96.6 fl 80.0-97.0 MCH 32.3 pg High 27.0-31.2 MCHC 33.4 g/dL 31.8-35.4 RDW 12.2 % 11.6-14.8 PLT 229 K/uL 142-424 MPV 6.4 fL 0.0-99.9 Laboratory test 05/22/2016 [facility] TSH 2.635 uIU/mL 0.350-4.940 finding Comprehensive 10/23/2015 [facility] Glucose 77.00 mg/dL 70.00- 110.00 Metabolic Panel Urea Nitrogen 17 mg/dL 9-21 CreaC 1.0 mg/dL 0.7-1.3 GFR 86.69 mL/min 28 Na-C 140 mmol/L 136-145 K-C 4.2 mmol/L [...] mg/dL High 0.2-1.2 Glob 2 4.00 2.30-4.20 Lipid Panel(New) 10/23/2015 [facility] Cholesterol 183 mg/dL 112- 200 29 Triglyceride 89 mg/dL 1-200 30 HDL 55 mg/dL 30-70 31 Chol/HDL 3.33 Low 4.00-6.70 NHDL 128.00 mg/dL High 0.00-100.00 32 LDL-C 110.20 mg/dL 20.00-130.00 33 Laboratory test 10/23/2015 [facility] PSA Total 0.57 ng/mL 0.00- 4.00 finding Screening Order 10/23/2015 [facility] Digital Rectal negative [address] [address] [phone] CBC/Automated 06/28/2014 [facility] WBC 6.09 k/uL 4.60-10.20 Differential Ashli 2.01 2.00-7.50 %N 33.0 % Low 37.0-80.0 Lym 3.00 K/UL 1.20-4.80 %L 49.3 % 10.0-50.0 [place] 0.478 0.000-0.900 %M 7.86 % 0.00-12.00 Eos 0.522 0.000-0.700 %E 8.58 % High 0.00-7.00 Baso 0.073 0.000-0.200 %B 1.20 % 0.00-4.00 RBC 4.99 m/uL 4.04-6.13 Hemoglobin 15.3 g/dL 12.2-18.1 Hematocrit 47.0 % 42.0-53.7 MCV 94.2 fl 80.0-97.0 MCH 30.6 pg 27.0-31.2 MCHC 32.5 g/dL 31.8-35.4 RDW 11.9 % 11.6-14.8 PLT 220 K/uL 142-424 MPV 7.2 fL 0.0-99.9 Comprehensive 06/28/2014 [facility] Glucose 85.00 mg/dL 70.00- 110.00 Metabolic Panel Urea Nitrogen 13 mg/dL 9-21 CreaC 0.8 mg/dL 0.7-1.3 GFR 103.22 mL/min 34 Na-C 139 mmol/L 136-145 K-C 4.6 mmol/L [...] Bilirubin 1.2 mg/dL 0.2-1.2 Lipid Panel 06/28/2014 [facility] Cholesterol 163 mg/dL 112-200 35 Triglyceride 100 mg/dL 1-200 36 HDL 51 mg/dL 30-70 37 Chol/HDL 3.20 Low 4.00-6.70 LDL 106.00 mg/dL 20.00-130.00 38 NHDL 112.00 mg/dL High 0.00-100.00 39 Laboratory test 12/28/2013 [facility] PSA 0.52 ng/mL 0.00-4.00 finding Comprehensive 12/28/2013 [facility] Glucose 93.00 mg/dL 70.00- 110.00 Metabolic Panel Urea Nitrogen 14 mg/dL 9-21 CreaC 1.0 mg/dL 0.7-1.3 GFR 86.21 mL/min 40 Na-C 139 mmol/L 136-145 K-C 4.0 mmol/L [...] mg/dL 8.90-10.40 Total Bilirubin 1.1 mg/dL 0.2-1.2 Aspirin Assay 12/28/2013 [facility] Asp.Assay 432.00 non-resi 0.00 -550.00 41 <SEE NOTE> ARU Lipid Panel 12/28/2013 [facility] Cholesterol 189 mg/dL 112-200 42 Triglyceride 73 mg/dL 1-200 43 HDL 49 mg/dL 30-70 44 Chol/HDL 3.86 Low 4.00-6.70 LDL 127.00 mg/dL 20.00-130.00 45 NHDL 140.00 mg/dL High 0.00-100.00 46 CBC/Automated Differential 12/28/2013 [facility] WBC 7.66 k/uL 4.60 -10.20 Ashli 2.62 2.00-7.50 %N 34.2 % Low 37.0-80.0 Lym 3.61 K/UL 1.20-4.80 %L 47.2 % 10.0-50.0 [place] 0.520 0.000-0.900 %M 6.79 % 0.00-12.00 Eos 0.804 High 0.000-0.700 %E 10.50 % High 0.00-7.00 Baso 0.102 0.000-0.200 %B 1.33 % 0.00-4.00 RBC 5.08 m/uL 4.04-6.13 Hemoglobin 15.9 g/dL 12.2-18.1 Hematocrit 47.5 % 42.0-53.7 MCV 93.5 fl 80.0-97.0 MCH 31.3 pg High 27.0-31.2 MCHC 33.5 g/dL 31.8-35.4 RDW 12.0 % 11.6-14.8 PLT 260 K/uL 142-424 MPV 7.0 fL 0.0-99.9 CBC/Automated Differential 12/23/2012 [facility] WBC 7.91 k/uL 4.60 -10.20 Ashli 2.97 2.00-7.50 %N 37.5 % 37.0-80.0 Lym 3.52 K/UL 1.20-4.80 %L 44.5 % 10.0-50.0 [place] 0.489 0.000-0.900 %M 6.19 % 0.00-12.00 Eos 0.783 High 0.000-0.700 %E 9.90 % High 0.00-7.00 Baso 0.148 0.000-0.200 %B 1.87 % 0.00-4.00 RBC 5.29 m/uL 4.04-6.13 Hemoglobin 16.4 g/dL 12.2-18.1 Hematocrit 50.9 % 42.0-53.7 MCV 96.3 fl 80.0-97.0 MCH 30.9 pg 27.0-31.2 MCHC 32.1 g/dL 31.8-35.4 RDW 11.9 % 11.6-14.8 PLT 289 K/uL 142-424 MPV 6.9 fL 0.0-99.9 Laboratory test 12/23/2012 [facility] PSA 0.43 ng/mL 0.00-4.00 finding Aspirin Assay 12/23/2012 [facility] Asp.Assay 576.00 High 0.00- 550.00 47 resistant ARU Lipid Panel 12/23/2012 [facility] Cholesterol 189 mg/dL 112-200 48 Triglyceride 80 mg/dL 1-200 49 HDL 48 mg/dL 30-70 50 Chol/HDL 3.94 Low 4.00-6.70 LDL 126.00 mg/dL 20.00-130.00 51 NHDL 141.00 mg/dL High 0.00-100.00 52 Comprehensive 12/23/2012 [facility] Glucose 101.00 mg/dL 70.00- 110.00 Metabolic Panel Urea Nitrogen 14 mg/dL 9-21 CreaC 0.9 mg/dL 0.7-1.3 GFR 92.04 mL/min 53 Na-C 140 mmol/L 136-145 K-C 4.2 mmol/L [...] mg/dL 8.90-10.40 Total Bilirubin 1.0 mg/dL 0.2-1.2 Laboratory test 05/12/2011 [facility] Occult Blood-Stool Negative Negative finding X3 Testosterone 216 ng/dL Low 348-1197 54 Lipid Panel 05/12/2011 [facility] Cholesterol 205 mg/dL High 112- 200 55 Triglyceride 59 mg/dL 1-200 56 HDL 53 mg/dL 30-70 57 Chol/HDL 3.87 Low 4.00-6.70 LDL 127.00 mg/dL 20.00-130.00 58 NHDL 152.00 mg/dL High 0.00-100.00 59 CBC/Automated Differential 05/12/2011 [facility] WBC 5.94 k/uL 4.60 -10.20 Ashli 2.59 2.00-7.50 %N 43.6 % 37.0-80.0 Lym 2.38 K/UL 1.20-4.80 %L 40.0 % 10.0-50.0 [place] 0.431 0.000-0.900 %M 7.25 % 0.00-12.00 Eos 0.481 0.000-0.700 %E 8.09 % High 0.00-7.00 Baso 0.067 0.000-0.200 %B 1.13 % 0.00-4.00 RBC 5.16 m/uL 4.04-6.13 Hemoglobin 15.8 g/dL 12.2-18.1 Hematocrit 47.5 % 42.0-53.7 MCV* 91.9 fl 80.0-97.0 MCH* 30.7 pg 27.0-31.2 MCHC* 33.4 g/dL 31.8-35.4 RDW* 11.9 % 11.6-14.8 PLT 287 K/uL 142-424 MPV 5.9 fL 0.0-99.9 Laboratory test finding 05/12/2011 [facility] Free T4 1.18 ng/dL 0.70-1.48 TSH 2.787 uIU/mL 0.350-4.940 PSA 0.58 ng/mL 0.00-4.00 Order 05/12/2011 [facility] Occult - Neg [address] [place] [address] Rectal Exam [phone] Aspirin Assay 05/12/2011 [facility] Asp.Assay 594.00 High 0.00 60 resistant ARU -550 .00 Comprehensive 05/12/2011 [facility] Glucose 95.00 mg/dL 70.0 Metabolic Panel 0-11 0.00 Urea Nitrogen 12 mg/dL 9-21 CreaC 1.0 mg/dL 0.7-1.3 GFR 88.12 mL/min 61 Na-C 141 mmol/L 136-145 K-C 4.3 mmol/L [...] 8.90-10.40 Total Bilirubin 1.4 mg/dL High 0.2-1.2 Urinalysis/Microscopic 05/12/2011 [facility] Color Yellow Abnormal Appear Clear Abnormal Leuk Negative Negative Nitrite Negative Negative Urobil 0.2 0.2-1.0 Protein Negative Negative pH 6.5 5.0-8.5 Blood Etbfr-Dkt-Dmrrih <SEE NOTE> Abnormal Negative 62 S.G. 1.015 1.005-1.025 Ketone Negative Negative Bili Negative Negative U-Glu Negative Negative Comment Essentially nega <SEE NOTE> Abnormal 63 Laboratory test 02/17/2011 [facility] Surgical Path SEE NOTE 64 finding Order 11/14/2009 [facility] Occult - Digital neg [address] [place] [place] [address] [phone] Lipid Panel 11/14/2009 [facility] Cholesterol 181 mg/dL 112-2 65, 66 00 Triglyceride 73 mg/dL 1-200 67 HDL 52 mg/dL 30-70 68 Chol/HDL 3.48 Low 4.00-6.70 LDL 141.00 mg/dL High 20.00-130.00 69 NHDL 129.00 mg/dL High 0.00-100.00 70 Comprehensive 11/14/2009 [facility] Glucose 102.00 mg/dL 70.00- 110.00 Metabolic Panel Urea Nitrogen 13 mg/dL 9-21 CreaC 1.0 mg/dL 0.7-1.3 GFR 84.51 mL/min 71 Na-C 142 mmol/L 136-145 K-C 4.7 mmol/L [...] CaC 9.30 mg/dL 8.90-10.40 CBC/Automated Differential 11/14/2009 [facility] WBC 7.00 k/uL 4.60 -10.20 Ashli 2.85 2.00-7.50 %N 40.7 % 37.0-80.0 Lym 3.11 K/UL 1.20-4.80 %L 44.4 % 10.0-50.0 [place] 0.469 0.000-0.900 %M 6.70 % 0.00-12.00 Eos 0.480 0.000-0.700 %E 6.87 % 0.00-7.00 Baso 0.091 0.000-0.200 %B 1.31 % 0.00-4.00 RBC 4.97 m/uL 4.04-6.13 Hemoglobin 15.5 g/dL 12.2-18.1 Hematocrit 47.1 % 42.0-53.7 MCV* 94.7 fl 80.0-97.0 MCH* 31.3 pg High 27.0-31.2 MCHC* 33.0 g/dL 31.8-35.4 RDW* 11.6 % 11.6-14.8 PLT 266 K/uL 142-424 MPV 8.4 fL 0.0-99.9 Laboratory test finding 11/14/2009 [facility] Free T4 1.01 ng/dL 0.70-1.48 TSH 2.572 uIU/mL 0.350-4.940 PSA 0.42 ng/mL 0.00-4.00 Basic Metabolic 04/04/2009 [facility] Glucose 117.00 mg/dL High 70.00-110.00 Panel Sodium 138 mmol/L 136-145 Potassium 4.2 mmol/L 3.5-5.1 Chloride 105 mmol/L 98-107 Carbon Dioxide 24.00 mmol/L 22.00-31.00 Urea Nitrogen 12 mg/dL 9-21 GFR 67.85 mL/min 72 Creatinine 1.2 mg/dL 0.7-1.3 Calcium 9.4 mg/dL 8.9-10.4 BUN/CR 10.00 10.00-20.00 Osmo 286.79 275.00-295.00 CBC/Automated Differential 04/04/2009 [facility] WBC 5.81 k/uL 4.60 -10.20 Ashli 2.64 2.00-7.50 %N 45.3 % 37.0-80.0 Lym 2.49 K/UL 1.20-4.80 %L 42.8 % 10.0-50.0 [place] 0.317 0.000-0.900 %M 5.45 % 0.00-12.00 Eos 0.292 0.000-0.700 %E 5.02 % 0.00-7.00 Baso 0.081 0.000-0.200 %B 1.40 % 0.00-4.00 RBC 4.97 m/uL 4.04-6.13 Hemoglobin 15.3 g/dL 12.2-18.1 Hematocrit 45.0 % 42.0-53.7 MCV* 90.5 fl 80.0-97.0 MCH* 30.8 pg 27.0-31.2 MCHC* 34.1 g/dL 31.8-35.4 RDW* 11.5 % Low 11.6-14.8 PLT 282 K/uL 142-424 MPV 7.9 fL 0.0-99.9 Lipid Panel 04/04/2009 [facility] Cholesterol 213 mg/dL High 112- 200 73 Triglyceride 82 mg/dL 1-200 74 HDL 48 mg/dL 30-70 75 Chol/HDL 4.44 4.00-6.70 LDL 159.00 mg/dL High 20.00-130.00 76 NHDL 165.00 mg/dL High 0.00-100.00 77 Hepatic Function 04/04/2009 [facility] Total Bilirubin 1.0 mg/dL 0.2-1.2 Panel Direct Bilirubin 0.3 mg/dL 0.0-0.5 Total Protein 7.9 g/dL 6.4-8.3 Albumin 4.1 g/dL 3.5-5.0 Alkaline Phosphatase 67 U/L 40-150 Alanine Aminotransferase 31 U/L 0-55 Aspartate Aminotransferase 20 U/L 5-34 A/G 1.08 Low 1.46-2.46 Glob 3.80 High 2.30-3.50 Indirect Bilirubin 0.70 0.20-0.80 Laboratory test 04/04/2009 [facility] TSH 3.096 uIU/mL 0.350-4.940 finding Lipid Panel 04/12/2008 [facility] Cholesterol 174 mg/dL 112-200 78 Triglyceride 157 mg/dL 1-200 79 HDL 51 mg/dL 30-70 80 Chol/HDL 3.41 Low 4.00-6.70 LDL 107.00 mg/dL 20.00-130.00 81 NHDL 123.00 mg/dL High 0.00-100.00 82 CBC/Automated Differential 03/15/2008 [facility] WBC 5.99 k/uL 4.60 -10.20 Ashli 2.63 2.00-7.50 %N 43.9 % 37.0-80.0 Lym 2.58 K/UL 1.20-4.80 %L 43.1 % 10.0-50.0 [place] 0.353 0.000-0.900 %M 5.89 % 0.00-12.00 Eos 0.351 0.000-0.700 %E 5.85 % 0.00-7.00 Baso 0.078 0.000-0.200 %B 1.31 % 0.00-4.00 RBC 4.61 m/uL 4.04-6.13 Hemoglobin 14.8 g/dL 12.2-18.1 Hematocrit 43.0 % 42.0-53.7 MCV* 93.3 fl 80.0-97.0 MCH* 32.1 pg High 27.0-31.2 MCHC* 34.4 g/dL 31.8-35.4 RDW* 11.3 % Low 11.6-14.8 PLT 276 K/uL 142-424 MPV 8.1 fL 0.0-99.9 Basic Metabolic Panel 03/15/2008 [facility] Glucose 94.00 mg/dL 70.00-110.00 Sodium 140 mmol/L 136-145 Potassium 4.5 mmol/L 3.5-5.1 Chloride 106 mmol/L 98-107 Carbon Dioxide 24.00 mmol/L 22.00-31.00 Urea Nitrogen 13 mg/dL 9-21 GFR 84.10 mL/min 83 Creatinine 1.0 mg/dL 0.7-1.3 Calcium 9.2 mg/dL 8.9-10.4 BUN/CR 13.00 10.00-20.00 Osmo 289.87 275.00-295.00 Lipid Panel 03/15/2008 [facility] Cholesterol 217 mg/dL High 112- 200 84 Triglyceride 115 mg/dL 1-200 85 HDL 46 mg/dL 30-70 86 Chol/HDL 4.72 4.00-6.70 LDL 160.00 mg/dL High 20.00-130.00 87 NHDL 171.00 mg/dL High 0.00-100.00 88 Laboratory test 03/15/2008 [facility] Occult Negative Negative finding Blood-Stool X3 Urinalysis/Micro 03/15/2008 [facility] Color Lt Yellow Abnormal scopic Appear Clear Abnormal Leuk Negative Negative Nitrite Negative Negative Urobil 0.2 0.2-1.0 Protein Negative Negative pH 6.0 5.0-8.5 Blood Trace-Lysed Abnormal Negative S.G. <1.005 1.005-1.025 Ketone Negative Negative Bili Negative Negative U-Glu Negative Negative U-RBC occ. 0-2 Laboratory test finding 03/15/2008 [facility] PSA 0.32 ng/mL 0.00- 4.00 Free T4 0.94 ng/dL 0.70-1.48 TSH 2.455 uIU/mL 0.350-4.940 Hepatic Function 03/15/2008 [facility] Total Bilirubin 0.9 mg/dL 0.2-1.2 Panel Direct Bilirubin 0.3 mg/dL 0.0-0.5 Total Protein 7.7 g/dL 6.4-8.3 Albumin 4.6 g/dL 3.5-5.0 Alkaline Phosphatase 73 U/L 40-150 Alanine Aminotransferase 28 U/L 0-55 Aspartate Aminotransferase 21 U/L 5-34 A/G 1.48 1.46-2.46 Glob 3.10 2.30-3.50 Indirect Bilirubin 0.60 0.20-0.80 Post Vasectomy 06/29/2006 [facility] Sperm Sperm Present Motility Laboratory test 03/05/2006 [facility] Troponin I 0.00 ng/mL 0.00- 0.30 finding Laboratory test 12/19/2005 [facility] Urine Culture No growth. 89 finding Comprehensive 12/19/2005 [facility] Glu 99 mg/dL 70-110 Metabolic Panel Bun 15 mg/dL 9-21 Creat 1.2 mg/dL 0.7-1.3 GFR 68.77 mL/min 90 Na 137 mmol/L 136-145 K 4.1 mmol/L 3.5-5.1 Cl 102 mmol/L 98-107 Co2 27 mmol/L 22-31 T Michael 1.0 mg/dL 0.2-1.2 TP 8.0 g/dL 6.4-8.3 Alb G 4.8 g/dL 3.5-5.0 Alt 46 U/L 0-55 Ast 28 U/L 5-34 Alk P 78 U/L 40-150 Ca 9.5 mg/dL 8.9-10.4 BUN/CR 12.50 10.00-20.00 A/G 1.50 1.46-2.46 Glob 3.20 2.30-3.50 Osmo 284.86 275.00-295.00 CBC/Automated Differential 12/19/2005 [facility] Care WBC 7.12 k/uL 4.60 -10.20 Ashli 2.83 2.00-7.50 %N 39.7 % 37.0-80.0 Lym 3.27 K/UL 1.20-4.80 %L 46.0 % 10.0-50.0 [place] 0.612 0.000-0.900 %M 8.60 % 0.00-12.00 Eos 0.296 0.000-0.700 %E 4.17 % 0.00-7.00 Baso 0.106 0.000-0.200 %B 1.49 % 0.00-4.00 RBC 4.86 m/uL 4.04-6.13 HGB 15.1 g/dL 12.2-18.1 HCT 44.0 % 42.0-53.7 MCV 90.6 fl 80.0-97.0 MCH 31.1 pg 27.0-31.2 MCHC 34.3 g/dL 31.8-35.4 RDW 11.9 % 11.6-14.8 PLT 267 K/uL 142-424 MPV 8.6 fL 0.0-99.9 Laboratory test finding 12/04/2003 Urine Culture FINAL 91 1 NORMAL FUNCTION OR MILD RENAL DISEASE:>60 ml/min ADVANCED RENAL DISEASE:15-59 ml/min RENAL FAILURE:<15 ml/min 2 FASTING Fastin hours FASTING Fastin hours FASTING Fastin hours 3 NORMAL FUNCTION OR MILD RENAL DISEASE:>60 ml/min ADVANCED RENAL DISEASE:15-59 ml/min RENAL FAILURE:<15 ml/min 4 GOAL LESS THAN 200 5 GOAL LESS THAN 200 6 GOAL GREATER THAN 45 7 GOAL LESS THAN 100 8 GOAL LESS THAN 100 9 NORMAL FUNCTION OR MILD RENAL DISEASE:>60 ml/min ADVANCED RENAL DISEASE:15-59 ml/min RENAL FAILURE:<15 ml/min 10 NORMAL FUNCTION OR MILD RENAL DISEASE:>60 ml/min ADVANCED RENAL DISEASE:15-59 ml/min RENAL FAILURE:<15 ml/min 11 GOAL LESS THAN 200 12 GOAL LESS THAN 200 13 GOAL GREATER THAN 45 14 GOAL LESS THAN 100 15 GOAL LESS THAN 100 16 NORMAL FUNCTION OR MILD RENAL DISEASE:>60 ml/min ADVANCED RENAL DISEASE:15-59 ml/min RENAL FAILURE:<15 ml/min 17 GOAL LESS THAN 200 18 GOAL LESS THAN 200 19 GOAL GREATER THAN 45 20 GOAL LESS THAN 100 21 GOAL LESS THAN 100 22 GOAL LESS THAN 200 23 GOAL LESS THAN 200 24 GOAL GREATER THAN 45 25 GOAL LESS THAN 100 26 GOAL LESS THAN 100 27 NORMAL FUNCTION OR MILD RENAL DISEASE:>60 ml/min ADVANCED RENAL DISEASE:15-59 ml/min RENAL FAILURE:<15 ml/min 28 NORMAL FUNCTION OR MILD RENAL DISEASE:>60 ml/min ADVANCED RENAL DISEASE:15-59 ml/min RENAL FAILURE:<15 ml/min 29 GOAL LESS THAN 200 30 GOAL LESS THAN 200 31 GOAL GREATER THAN 45 32 GOAL LESS THAN 100 33 GOAL LESS THAN 100 34 NORMAL FUNCTION OR MILD RENAL DISEASE:>60 ml/min ADVANCED RENAL DISEASE:15-59 ml/min RENAL FAILURE:<15 ml/min 35 GOAL LESS THAN 200 36 GOAL LESS THAN 200 37 GOAL GREATER THAN 45 38 GOAL LESS THAN 100 39 GOAL LESS THAN 100 40 NORMAL FUNCTION OR MILD RENAL DISEASE:>60 ml/min ADVANCED RENAL DISEASE:15-59 ml/min RENAL FAILURE:<15 ml/min 41 432.00 non-resistant 42 GOAL LESS THAN 200 43 GOAL LESS THAN 200 44 GOAL GREATER THAN 45 45 GOAL LESS THAN 100 46 GOAL LESS THAN 100 47 576.00 resistant 48 GOAL LESS THAN 200 49 GOAL LESS THAN 200 50 GOAL GREATER THAN 45 51 GOAL LESS THAN 100 52 GOAL LESS THAN 100 53 NORMAL FUNCTION OR MILD RENAL DISEASE:>60 ml/min ADVANCED RENAL DISEASE:15-59 ml/min RENAL FAILURE:<15 ml/min 54 [facility] [id number] 55 GOAL LESS THAN 200 56 GOAL LESS THAN 200 57 GOAL GREATER THAN 45 58 GOAL LESS THAN 100 59 GOAL LESS THAN 100 60 594.00 resistant 61 NORMAL FUNCTION OR MILD RENAL DISEASE:>60 ml/min ADVANCED RENAL DISEASE:15-59 ml/min RENAL FAILURE:<15 ml/min 62 Qnqfr-Nfz-Ivzwkzhxr 63 Essentially negative urine. 64 [facility] DEPARTMENT OF PATHOLOGY or Extension 8220 SURGICAL PATHOLOGY REPORT PATIENT: MARINO ERIC : 1960 AGE: 50 Y SEX: M ACCT: [id number] PROCEDURE DATE: 02/17/2011 DATE RECEIVED: 02/18/2011 REQUESTING PHYSICIAN: LORENZO LEE MD LOCATION: [facility] Case No. [id number] FINAL DIAGNOSIS: SKIN TAG, RIGHT LEG (BIOPSY): POLYPOID HYPERTROPHIC DERMAL SCAR. 0/slm D/T 02/19/11 GROSS DESCRIPTION: Specimen is received in formalin, labeled Marino Eric, lab #[id number], consists of an off-white light joel wrinkled rubbery polypoid papule of skin that is 0.95 x 0.8 x 0.45 cm. The margin is inked black. It is serially sectioned. TS/1 AP/slm D/T 02/18/11 CPT; 94886 CLINICAL DATA: [id number] NONE PROVIDED SPECIMEN SUBMITTED: SKIN TAG(S), RIGHT LEG 702.11 ADDITIONAL COPIES SENT TO: Electronically Signed by: Signed Date and Time: FIDENCIO BRAXTON MD PATHOLOGIST 02/19/2011 17:08 __ Performed at [facility], [address] [place] [address] This report may include one or more immunohistochemistry stain results which use analyte-specific reagents. The interpretation of the above immunohistochemistry stain or stains is guided by published results in the medical literature, provided package information from the in flight refueling operator and by internal review of staining performance and assay validation within the Immunohistochemistry Department of [facility]. This testing has not been cleared or approved by the U.S. Food and Drug Administration (FDA). The FDA has determined that such clearance or approval is not necessary. These tests are used for clinical purposes and should not be regarded as investigational or research. Special stains and/or immunohistochemical stains were performed with appropriately stained positive and negative controls. "" 65 FASTING 66 GOAL LESS THAN 200 67 GOAL LESS THAN 200 68 GOAL GREATER THAN 45 69 GOAL LESS THAN 100 70 GOAL LESS THAN 100 71 NORMAL FUNCTION OR MILD RENAL DISEASE:>60 ml/min ADVANCED RENAL DISEASE:15-59 ml/min RENAL FAILURE:<15 ml/min 72 NORMAL FUNCTION OR MILD RENAL DISEASE:>60 ml/min ADVANCED RENAL DISEASE:15-59 ml/min RENAL FAILURE:<15 ml/min 73 GOAL LESS THAN 200 74 GOAL LESS THAN 200 75 GOAL GREATER THAN 45 76 GOAL LESS THAN 100 77 GOAL LESS THAN 100 78 GOAL LESS THAN 200 79 GOAL LESS THAN 200 80 GOAL GREATER THAN 45 81 GOAL LESS THAN 100 82 GOAL LESS THAN 100 83 NORMAL FUNCTION OR MILD RENAL DISEASE:>60 ml/min ADVANCED RENAL DISEASE:15-59 ml/min RENAL FAILURE:<15 ml/min 84 GOAL LESS THAN 200 85 GOAL LESS THAN 200 86 GOAL GREATER THAN 45 87 GOAL LESS THAN 100 88 GOAL LESS THAN 100 89 [employer] [address] [place] [address] Debra Sanchez D.O., Ph.D. 90 NORMAL FUNCTION OR MILD RENAL DISEASE:>60 ml/min ADVANCED RENAL DISEASE:15-59 ml/min RENAL FAILURE:<15 ml/min 91 Source: URINE, CLEAN CATCH No growth. Procedures Date Code Description Status 07/08/2018 96468 X-Ray - Knee Complete 4 Or More Views Completed 07/08/2018 64597 Inject/Drain Joint/Bursa Major Completed 10/28/2016 29132 Electrocardiogram Complete Completed 10/28/2016 68415 X-Ray, Spine, Cervical; 2 Or 3 Vies Completed 09/10/2016 98707 Admin Fee For Therapeutic, Prophylactic Or Diagnostic Completed Injection 09/10/2016 87772 X-Ray Knee; One Or Two Views Completed 09/10/2016 65367 Inject/Drain Joint/Bursa Major Completed 05/12/2011 62312 Screening Test Of Visual Acuity , Quantitative, Completed Bilateral 05/12/2011 44530 Electrocardiogram Complete Completed 05/12/2011 94782 Pure Tone Audiometry, Air Completed 05/12/2011 55292 X-Ray Chest Two Views Frontal & Lateral Completed 02/17/2011 24209 Excise Benign Lesion .6-1CM Trunk/Arm/Leg Completed 02/17/2011 22749 Shave Skin Lesion .6-1CM Trunk/Arm/Leg Completed 05/04/2008 28212736 Colonoscopy Completed 03/15/2008 78384 X-Ray Chest Two Views Frontal & Lateral Completed 03/15/2008 85753 Electrocardiogram Complete Completed 02/22/2007 49557 X-Ray C-Spine Min Of Four Views Completed 02/19/2007 22887 Therapeutic, Prophylactic Inj Completed 05/15/2006 11857 Vasectomy Including Post-Op Semen Exam Completed 03/05/2006 23473 Electrocardiogram Complete Completed 03/05/2006 54575 Therapeutic, Prophylactic Inj Completed 03/05/2006 49557 X-Ray Ribs & Chest Three Views Completed 03/04/2006 28643 X-Ray Chest Two Views Frontal & Lateral Completed 02/11/2005 86019 X-Ray Elbow Complete Completed 05/07/2004 40693 Inject/Drain Joint/Bursa Intermediate Completed 11/13/2003 14339 X-Ray Abdomen Single Ap View Completed Encounters Type Date Location Provider Dx Diagnosis Office Visit 07/08/[address] Osmar Servin M25.562 Pain in left knee 2:00p MD Zoran G90.09 Other idiopathic peripheral autonomic neuropathy Office Visit 06/08/2018 11:00a [address] Lorenzo Lee G20 Parkinson's disease Olvin MCDONALD MD G25.0 Essential tremor G43.909 Migraine, unsp, not intractable, without status migrainosus E78.2 Mixed hyperlipidemia Z12.5 Encounter for screening for malignant neoplasm of prostate Office Visit 03/11/2018 10:15a Main Office Lorenzo Lee JR G20 Kp gomez MD G25.0 Essential tremor E78.2 Mixed hyperlipidemia 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, unspecified Z12.12 Encounter for screening for malignant neoplasm of rectum B35.1 Tinea unguium Z12.5 Encounter for screening for malignant neoplasm of prostate Z23 Encounter for immunization Office Visit 10/08/2017 1:45p Main Office Lorenzo Lee JR, G20 Parkinson's disease B35.1 Tinea unguium Office Visit 08/18/2017 8:30a Main Office Boubacar Cottrell, G20 Parkinson's disease PA-C G25.0 Essential tremor E78.2 Mixed hyperlipidemia Office Visit 01/06/2017 1:45p Main Office Paulette Coronado L23.7 Allergic contact [place], [employer]CIAL [employer] dermatitis due to plants, except food Office Visit 10/28/2016 10:45a Main Office Lorenzo Lee E78.2 Mixed hyperlipidemia MD TAMARA G20 Parkinson's disease M54.2 Cervicalgia Z12.5 Encounter for screening for malignant neoplasm of prostate Z12.12 Encounter for screening for malignant neoplasm of rectum S80.12xA Contusion of left lower leg, initial encounter Office Visit 09/10/2016 10:45a Main Office Lorenzo Lee JR, M25.561 Pain in right MD knee L03.116 Cellulitis of left lower limb G20 Parkinson's disease Office Visit 05/22/2016 Main Office Maria Isabel Walker, E78.00 Pure hypercholesterolemia, 8:15a PA-C unspecified 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, unspecified Z23 Encounter for immunization J45.998 Other asthma G43.009 Migraine w/o aura, not intractable, w/o status migrainosus Office Visit 12/27/2015 11:30a Main Office Sudhir Pond L23.9 Allergic contact PA-C dermatitis, unspecified cause [...] W/O Intractable W/O Status Migrainosus 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 V76.44 Screening For Malig [...] Screening For Malignant Neoplasms Colon v58.69 Medications Retirement (Current) Use Encounter Office Visit 12/20/2011 10:30a Main Office Abraham Marcus [facility].[employer] MD Arsenio Follicle Diseases Other Spec Office Visit 12/02/2011 3:45p Main Office Paulette Coronado 704.8 Hair & Hair NEO Cartwright-ELIAS Follicle Diseases Other Spec 493.01 Asthma Extrinsic [...] Routine AT [facility] Care Facility 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 V76.44 Screening For Malig Jordy Prostate V06.1 Rzcsxaqvls-Rispfyh-Imgwonhx Combined (DTaP) V76.51 Special Screening For Malignant [...] 05/07/2010 9:30a Main Office Lorenzo Lee 332.1 Parkinsonism MD TAMARA Secondary 333.1 Tremor Essential & Other Forms Office Visit 04/08/2010 10:00a Main Office Lorenzo Lee JR, 333.1 Tremor Essential & MD Other Forms [...] Main Office Aleksandr Pederson, 796.2 Blood Pressure Reading Elevated W/O Hypertension 272.0 Hypercholesterolemia Pure [...] Visit 10/15/2006 11:45a Main Office Maria Isabel Walker, PA-C 462 Pharyngitis Acute 796.2 Blood Pressure Reading Elevated W/O Hypertension Office Visit 07/17/2006 6:15p Main Office Lorenzo Lee 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 311 Depressive Disorder Not Elsewhere Spec Office Visit 02/16/2003 11:15a Main Office Lorenzo Lee JR, V15.85 Personal History MD Of Contact & Exposure To Hazard Body Fluids 784.0 Headache 311 Depressive Disorder Not Elsewhere Spec Plan of Treatment Future Appointment(s):07/15/2018 1:45 pm - Lorenzo Lee JR, MD at [address] Side07/08/2018 - Osmar Meehan, MDM25.562 Pain in left kneeComments:X- ray indicates some arthritis. Suspect an old meniscal injury as well. Discussed with the patient, treatment options including OTC medications, physical therapy , or Kenalog injection. Patient would prefer to have a knee injection. Discussed the risks and benefits of the procedure. Patient verbalized understanding and signed consent.Patient tolerated the procedure well. Advised that it will take a couple days for the patient to feel relief. Advised to contact the office if he experiences any signs of infection at the injection site (redness, swelling, warmth).G90.09 Other idiopathic peripheral autonomic neuropathyComments:Patient does not have a history of diabetes. Will check bloodwork and notify the patient with the results.
--- OUTSIDE RECORDS SUMMARY | 2018-07-23 19:52 | XMS REPORT | Continuity of Care Document ---
:1960 External Reference #:[id number] Author Name Osmar Meehan MD Address [address] [place] [address] [place] [address] Care Team Providers Name Role Phone Lorenzo Lee JR., M.D. Primary Care Physician Unavailable Payers Date Identification Numbers Payment Provider Subscriber Effective: 2017 Policy Number: [id number] [facility] Marino Jenkinscourtney MCDONALD PayID: [id number] [address] [address] [place] [address] Expires: 2017 Policy Number: [id number] [facility] Marino Weir Shantelle MCDONALD PayID: [id number] [address] [address] [place] [address] Expires: 2016 Policy Number: [id number] [facility] Marino Eric PayID: [id number] [address] [place] [address] Expires: 2016 Policy Number: [id number] [facility] Marino Eric JR Service PayID: [id number] [address] [address] [place] [address] Advance Directives Description No Information Available Problems [...] JR, MD 09/20 Nystatin 08/25 Hx Cream [id number] 90gm apply to Adin A. t/GM area [...] Tablets 1.5mg 1 po tid rx 332.1 Lorenoz 12/23/2012 not printed Juan Alberto MCDONALD MD 333.1 Bactrim DS 12/20/2011 - Hx Tablets 800-160mg 20tabs 1 po bid x Abraham P. 12/30/2011 10 days MD Arsenio Bactroban 12/20/2011 - Hx Cream 2% [id number] apply to 704 Abraham P. 12/22/2012 affected .8 MD Arsenio skin bid prn Keflex 12/02/2011 - Hx Capsules 500mg 20caps 1 po bid x 704 Paulette E. 12/12/2011 10 days .8 [facility] Proair HFA 12/02/2011 - Hx Aerosol 108(90Base) [...] With Lorenzo 10/15/2006 Food prn Juan Alberto MCDONLAD MD Valium 05/08/2006 - Hx Tablets 10mg [...] CPT Code Status Date Vaccine Lot # [id number] Given 03/11/2018 Flu, Multi-Dose Vial W/Preservative (Age 3 Yrs And [id number] Older)Quad 0.5 04654 Given 05/22/2016 Flu, Multi-Dose Vial W/Preservative (Age 3 Yrs And [id number] Older)Quad 0.5 46461 Given 01/26/2013 Flu Shot 3 Yrs And Above (Multi Dose Vial) [id number] 88882 Given 05/12/2011 Adacel - Tdap [facility] [id number] 05/05 cc [id number] 76705 Given 02/17/2011 Flu Shot 3 Yrs And Above (Multi Dose Vial) [id number] 16184 Given 04/04/2009 Flu Shot 3 Yrs And Above (Multi Dose Vial) [id number] 13638 Given 03/15/2008 Pneumococcal 23 Vaccine [id number] 31845 Given 03/15/2008 Flu Shot 3 Yrs And Above (Multi Dose Vial) [id number] 51035 Given 02/19/2007 Flu Shot 3 Yrs And Above (Multi Dose Vial) [id number] 63154 Given 03/04/2006 Flu Shot 3 Yrs And Above (Multi Dose Vial) 24724 Given 02/11/2005 Flu Shot 3 Yrs And Above (Multi Dose Vial) 87361 Given 03/26/2004 Flu Shot 3 Yrs And Above (Multi Dose Vial) 98288 Given 04/08/2000 Td Toxoids 68465 Given 04/08/2000 Influenza Virus Whole Vital Signs [...] Date Facility Test Result H/L Range Note Xray 07/08/2018 [facility] Knee, <pending> [address] Complete, [place] [address] 4 Or More [phone] Views, LT Laboratory test 07/08/2018 [facility] TSH 1.206 uIU/mL 0.350-4.94 finding 0 FT4_6 1.06 ng/dL 0.70-1.48 Laboratory test 07/08/2018 [facility] Vitamin B12 437.00 pg/mL 213.00-816.00 finding Arch CBC/Automated 07/08/2018 [facility] WBC 7.42 k/uL 4.60-10.20 Differential Ashli 3.43 2.00-7.50 %N 46.3 % 37.0-80.0 Lym 3.06 K/UL 1.20-4.80 %L 41.2 % 10.0-50.0 Goodhue 0.487 0.000-0.900 %M 6.56 % 0.00-12.00 Eos 0.321 0.000-0.700 %E 4.32 % 0.00-7.00 Baso 0.121 0.000-0.200 %B 1.64 % 0.00-4.00 RBC 4.97 m/uL 4.04-6.13 Hemoglobin 15.4 g/dL 12.2-18.1 Hematocrit 44.9 % 42.0-53.7 MCV 90.4 fl 80.0-97.0 MCH 30.9 pg 27.0-31.2 MCHC 34.2 g/dL 31.8-35.4 RDW 11.7 % 11.6-14.8 PLT 250 K/uL 142-424 MPV 6.8 fL 0.0-99.9 Comprehensive 07/08/2018 [facility] Glucose 88.00 mg/dL 70.00- 110.00 Metabolic [...] Glob 2 3.80 2.30-4.20 Laboratory test 06/08/2018 [facility] PSA Total 0.54 ng/mL 0.00- 4.00 finding Screening CBC/Automated 03/11/2018 [facility] WBC 6.63 k/uL 4.60-10.20 2 Differential Ashli 2.76 2.00-7.50 %N 41.6 % 37.0-80.0 Lym 2.92 K/UL 1.20-4.80 %L 44.0 % 10.0-50.0 Goodhue 0.481 0.000-0.900 %M 7.25 % 0.00-12.00 Eos 0.383 0.000-0.700 %E 5.77 % 0.00-7.00 Baso 0.087 0.000-0.200 %B 1.31 % 0.00-4.00 RBC 5.02 m/uL 4.04-6.13 Hemoglobin 15.7 g/dL 12.2-18.1 Hematocrit 47.4 % 42.0-53.7 MCV 94.3 fl 80.0-97.0 MCH 31.2 pg 27.0-31.2 MCHC 33.1 g/dL 31.8-35.4 RDW 11.8 % 11.6-14.8 PLT 245 K/uL 142-424 MPV 7.0 fL 0.0-99.9 Comprehensive 03/11/2018 [facility] Glucose 82.00 mg/dL 70.00- 110.00 Metabolic [...] Glob 2 3.90 2.30-4.20 Lipid Panel(New) 03/11/2018 [facility] Cholesterol 175 mg/dL 112- 200 4 Triglyceride 71 mg/dL 1-200 5 HDL 51 mg/dL 30-70 6 Chol/HDL 3.43 Low 4.00-6.70 NHDL 124.00 mg/dL High 0.00-100.00 7 LDL-C 109.80 mg/dL 20.00-130.00 8 CBC/Automated Differential 10/08/2017 [facility] WBC 7.65 k/uL 4.60 -10.20 Ashli 2.96 2.00-7.50 %N 38.7 % 37.0-80.0 Lym 3.64 K/UL 1.20-4.80 %L 47.6 % 10.0-50.0 Goodhue 0.556 0.000-0.900 %M 7.27 % 0.00-12.00 Eos 0.389 0.000-0.700 %E 5.08 % 0.00-7.00 Baso 0.104 0.000-0.200 %B 1.37 % 0.00-4.00 RBC 4.84 m/uL 4.04-6.13 Hemoglobin 14.4 g/dL 12.2-18.1 Hematocrit 43.7 % 42.0-53.7 MCV 90.3 fl 80.0-97.0 MCH 29.8 pg 27.0-31.2 MCHC 33.0 g/dL 31.8-35.4 RDW 11.8 % 11.6-14.8 PLT 229 K/uL 142-424 MPV 6.5 fL 0.0-99.9 Comprehensive 10/08/2017 [facility] Glucose 100.00 mg/dL 70.00- 110.00 Metabolic [...] Glob 2 3.80 2.30-4.20 CBC/Automated Differential 08/18/2017 [facility] WBC 5.92 k/uL 4.60 -10.20 Ashli 2.58 2.00-7.50 %N 43.6 % 37.0-80.0 Lym 2.38 K/UL 1.20-4.80 %L 40.1 % 10.0-50.0 Goodhue 0.452 0.000-0.900 %M 7.63 % 0.00-12.00 Eos 0.423 0.000-0.700 %E 7.15 % High 0.00-7.00 Baso 0.089 0.000-0.200 %B 1.50 % 0.00-4.00 RBC 4.98 m/uL 4.04-6.13 Hemoglobin 15.2 g/dL 12.2-18.1 Hematocrit 45.6 % 42.0-53.7 MCV 91.6 fl 80.0-97.0 MCH 30.6 pg 27.0-31.2 MCHC 33.4 g/dL 31.8-35.4 RDW 11.8 % 11.6-14.8 PLT 215 K/uL 142-424 MPV 7.2 fL 0.0-99.9 Comprehensive 08/18/2017 [facility] Glucose 96.00 mg/dL 70.00- 110.00 Metabolic [...] Glob 2 4.10 2.30-4.20 Lipid Panel(New) 08/18/2017 [facility] Cholesterol 184 mg/dL 112- 200 11 Triglyceride 63 mg/dL 1-200 12 HDL 54 mg/dL 30-70 13 Chol/HDL 3.41 Low 4.00-6.70 NHDL 130.00 mg/dL High 0.00-100.00 14 LDL-C 117.40 mg/dL 20.00-130.00 15 Order 10/28/2016 [facility] Occult - guia [address] [place] [address] Digital Rectal [phone] Exam Comprehensive 10/28/2016 [facility] Glucose 83.00 mg/dL 70.00 Metabolic Panel [...] Glob 2 4.00 2.30-4.20 Lipid Panel(New) 10/28/2016 [facility] Cholesterol 185 mg/dL 112- 200 17 Triglyceride 65 mg/dL 1-200 18 HDL 50 mg/dL 30-70 19 Chol/HDL 3.70 Low 4.00-6.70 NHDL 135.00 mg/dL High 0.00-100.00 20 LDL-C 122.00 mg/dL 20.00-130.00 21 Laboratory test 10/28/2016 [facility] PSA Total 0.94 ng/mL 0.00- 4.00 finding Screening Lipid Panel(New) 05/22/2016 [facility] Cholesterol 186 mg/dL 112- 200 22 Triglyceride 87 mg/dL 1-200 23 HDL 46 mg/dL 30-70 24 Chol/HDL 4.04 4.00-6.70 NHDL 140.00 mg/dL High 0.00-100.00 25 LDL-C 122.60 mg/dL 20.00-130.00 26 Comprehensive 05/22/2016 [facility] Glucose 86.00 mg/dL 70.00- 110.00 Metabolic [...] Glob 2 3.90 2.30-4.20 CBC/Automated Differential 05/22/2016 [facility] WBC 7.40 k/uL 4.60 -10.20 Ashli 2.93 2.00-7.50 %N 39.6 % 37.0-80.0 Lym 3.39 K/UL 1.20-4.80 %L 45.8 % 10.0-50.0 Goodhue 0.470 0.000-0.900 %M 6.35 % 0.00-12.00 Eos 0.528 0.000-0.700 %E 7.13 % High 0.00-7.00 Baso 0.081 0.000-0.200 %B 1.10 % 0.00-4.00 RBC 4.81 m/uL 4.04-6.13 Hemoglobin 15.5 g/dL 12.2-18.1 Hematocrit 46.5 % 42.0-53.7 MCV 96.6 fl 80.0-97.0 MCH 32.3 pg High 27.0-31.2 MCHC 33.4 g/dL 31.8-35.4 RDW 12.2 % 11.6-14.8 PLT 229 K/uL 142-424 MPV 6.4 fL 0.0-99.9 Laboratory test 05/22/2016 [facility] TSH 2.635 uIU/mL 0.350-4.940 finding Comprehensive 10/23/2015 [facility] Glucose 77.00 mg/dL 70.00- 110.00 Metabolic [...] Glob 2 4.00 2.30-4.20 Lipid Panel(New) 10/23/2015 [facility] Cholesterol 183 mg/dL 112- 200 29 Triglyceride 89 mg/dL 1-200 30 HDL 55 mg/dL 30-70 31 Chol/HDL 3.33 Low 4.00-6.70 NHDL 128.00 mg/dL High 0.00-100.00 32 LDL-C 110.20 mg/dL 20.00-130.00 33 Laboratory test 10/23/2015 [facility] PSA Total 0.57 ng/mL 0.00- 4.00 finding Screening Order 10/23/2015 [facility] Digital Rectal negative [address] Ex[address] [place], [place] [id number] [phone] CBC/Automated 06/28/2014 [facility] WBC 6.09 k/uL 4.60-10.20 Differential Ashli 2.01 2.00-7.50 %N 33.0 % Low 37.0-80.0 Lym 3.00 K/UL 1.20-4.80 %L 49.3 % 10.0-50.0 Goodhue 0.478 0.000-0.900 %M 7.86 % 0.00-12.00 Eos 0.522 0.000-0.700 %E 8.58 % High 0.00-7.00 Baso 0.073 0.000-0.200 %B 1.20 % 0.00-4.00 RBC 4.99 m/uL 4.04-6.13 Hemoglobin 15.3 g/dL 12.2-18.1 Hematocrit 47.0 % 42.0-53.7 MCV 94.2 fl 80.0-97.0 MCH 30.6 pg 27.0-31.2 MCHC 32.5 g/dL 31.8-35.4 RDW 11.9 % 11.6-14.8 PLT 220 K/uL 142-424 MPV 7.2 fL 0.0-99.9 Comprehensive 06/28/2014 [facility] Glucose 85.00 mg/dL 70.00- 110.00 Metabolic [...] Bilirubin 1.2 mg/dL 0.2-1.2 Lipid Panel 06/28/2014 [facility] Cholesterol 163 mg/dL 112-200 35 Triglyceride 100 mg/dL 1-200 36 HDL 51 mg/dL 30-70 37 Chol/HDL 3.20 Low 4.00-6.70 LDL 106.00 mg/dL 20.00-130.00 38 NHDL 112.00 mg/dL High 0.00-100.00 39 Laboratory test 12/28/2013 [facility] PSA 0.52 ng/mL 0.00-4.00 finding Comprehensive 12/28/2013 [facility] Glucose 93.00 mg/dL 70.00- 110.00 Metabolic [...] Bilirubin 1.1 mg/dL 0.2-1.2 Aspirin Assay 12/28/2013 [facility] Asp.Assay 432.00 non-resi 0.00 -550.00 41 <SEE NOTE> ARU Lipid Panel 12/28/2013 [facility] Cholesterol 189 mg/dL 112-200 42 Triglyceride 73 mg/dL 1-200 43 HDL 49 mg/dL 30-70 44 Chol/HDL 3.86 Low 4.00-6.70 LDL 127.00 mg/dL 20.00-130.00 45 NHDL 140.00 mg/dL High 0.00-100.00 46 CBC/Automated Differential 12/28/2013 [facility] WBC 7.66 k/uL 4.60 -10.20 Ashli 2.62 2.00-7.50 %N 34.2 % Low 37.0-80.0 Lym 3.61 K/UL 1.20-4.80 %L 47.2 % 10.0-50.0 Goodhue 0.520 0.000-0.900 %M 6.79 % 0.00-12.00 Eos 0.804 High 0.000-0.700 %E 10.50 % High 0.00-7.00 Baso 0.102 0.000-0.200 %B 1.33 % 0.00-4.00 RBC 5.08 m/uL 4.04-6.13 Hemoglobin 15.9 g/dL 12.2-18.1 Hematocrit 47.5 % 42.0-53.7 MCV 93.5 fl 80.0-97.0 MCH 31.3 pg High 27.0-31.2 MCHC 33.5 g/dL 31.8-35.4 RDW 12.0 % 11.6-14.8 PLT 260 K/uL 142-424 MPV 7.0 fL 0.0-99.9 CBC/Automated Differential 12/23/2012 [facility] WBC 7.91 k/uL 4.60 -10.20 Ashli 2.97 2.00-7.50 %N 37.5 % 37.0-80.0 Lym 3.52 K/UL 1.20-4.80 %L 44.5 % 10.0-50.0 Goodhue 0.489 0.000-0.900 %M 6.19 % 0.00-12.00 Eos 0.783 High 0.000-0.700 %E 9.90 % High 0.00-7.00 Baso 0.148 0.000-0.200 %B 1.87 % 0.00-4.00 RBC 5.29 m/uL 4.04-6.13 Hemoglobin 16.4 g/dL 12.2-18.1 Hematocrit 50.9 % 42.0-53.7 MCV 96.3 fl 80.0-97.0 MCH 30.9 pg 27.0-31.2 MCHC 32.1 g/dL 31.8-35.4 RDW 11.9 % 11.6-14.8 PLT 289 K/uL 142-424 MPV 6.9 fL 0.0-99.9 Laboratory test 12/23/2012 [facility] PSA 0.43 ng/mL 0.00-4.00 finding Aspirin Assay 12/23/2012 [facility] Asp.Assay 576.00 High 0.00- 550.00 47 resistant ARU Lipid Panel 12/23/2012 [facility] Cholesterol 189 mg/dL 112-200 48 Triglyceride 80 mg/dL 1-200 49 HDL 48 mg/dL 30-70 50 Chol/HDL 3.94 Low 4.00-6.70 LDL 126.00 mg/dL 20.00-130.00 51 NHDL 141.00 mg/dL High 0.00-100.00 52 Comprehensive 12/23/2012 [facility] Glucose 101.00 mg/dL 70.00- 110.00 Metabolic [...] Bilirubin 1.0 mg/dL 0.2-1.2 Laboratory test 05/12/2011 [facility] Occult Blood-Stool Negative Negative finding X3 Testosterone 216 ng/dL Low 348-1197 54 Lipid Panel 05/12/2011 [facility] Cholesterol 205 mg/dL High 112- 200 55 Triglyceride 59 mg/dL 1-200 56 HDL 53 mg/dL 30-70 57 Chol/HDL 3.87 Low 4.00-6.70 LDL 127.00 mg/dL 20.00-130.00 58 NHDL 152.00 mg/dL High 0.00-100.00 59 CBC/Automated Differential 05/12/2011 [facility] WBC 5.94 k/uL 4.60 -10.20 Ashli 2.59 2.00-7.50 %N 43.6 % 37.0-80.0 Lym 2.38 K/UL 1.20-4.80 %L 40.0 % 10.0-50.0 Goodhue 0.431 0.000-0.900 %M 7.25 % 0.00-12.00 Eos 0.481 0.000-0.700 %E 8.09 % High 0.00-7.00 Baso 0.067 0.000-0.200 %B 1.13 % 0.00-4.00 RBC 5.16 m/uL 4.04-6.13 Hemoglobin 15.8 g/dL 12.2-18.1 Hematocrit 47.5 % 42.0-53.7 MCV* 91.9 fl 80.0-97.0 MCH* 30.7 pg 27.0-31.2 MCHC* 33.4 g/dL 31.8-35.4 RDW* 11.9 % 11.6-14.8 PLT 287 K/uL 142-424 MPV 5.9 fL 0.0-99.9 Laboratory test finding 05/12/2011 [facility] Free T4 1.18 ng/dL 0.70-1.48 TSH 2.787 uIU/mL 0.350-4.940 PSA 0.58 ng/mL 0.00-4.00 Order 05/12/2011 [facility] Occult - Neg [address] [place] [address] Rectal Exam [phone] Aspirin Assay 05/12/2011 [facility] Asp.Assay 594.00 High 0.00 60 resistant ARU -550 .00 Comprehensive 05/12/2011 [facility] Glucose 95.00 mg/dL 70.0 Metabolic Panel [...] Bilirubin 1.4 mg/dL High 0.2-1.2 Urinalysis/Microscopic 05/12/2011 [facility] Color Yellow Abnormal Appear Clear Abnormal Leuk Negative Negative Nitrite Negative Negative Urobil 0.2 0.2-1.0 Protein Negative Negative pH 6.5 5.0-8.5 Blood Uwrzd-Rfr-Awwtas <SEE NOTE> Abnormal Negative 62 S.G. 1.015 1.005-1.025 Ketone Negative Negative Bili Negative Negative U-Glu Negative Negative Comment Essentially nega <SEE NOTE> Abnormal 63 Laboratory test 02/17/2011 [facility] Surgical Path SEE NOTE 64 finding Order 11/14/2009 [facility] Occult - Digital neg [address] [place] [address] [phone] Lipid Panel 11/14/2009 [facility] Cholesterol 181 mg/dL 112-2 65, 66 00 Triglyceride 73 mg/dL 1-200 67 HDL 52 mg/dL 30-70 68 Chol/HDL 3.48 Low 4.00-6.70 LDL 141.00 mg/dL High 20.00-130.00 69 NHDL 129.00 mg/dL High 0.00-100.00 70 Comprehensive 11/14/2009 [facility] Glucose 102.00 mg/dL 70.00- 110.00 Metabolic [...] CaC 9.30 mg/dL 8.90-10.40 CBC/Automated Differential 11/14/2009 [facility] WBC 7.00 k/uL 4.60 -10.20 Ashli 2.85 2.00-7.50 %N 40.7 % 37.0-80.0 Lym 3.11 K/UL 1.20-4.80 %L 44.4 % 10.0-50.0 Goodhue 0.469 0.000-0.900 %M 6.70 % 0.00-12.00 Eos 0.480 0.000-0.700 %E 6.87 % 0.00-7.00 Baso 0.091 0.000-0.200 %B 1.31 % 0.00-4.00 RBC 4.97 m/uL 4.04-6.13 Hemoglobin 15.5 g/dL 12.2-18.1 Hematocrit 47.1 % 42.0-53.7 MCV* 94.7 fl 80.0-97.0 MCH* 31.3 pg High 27.0-31.2 MCHC* 33.0 g/dL 31.8-35.4 RDW* 11.6 % 11.6-14.8 PLT 266 K/uL 142-424 MPV 8.4 fL 0.0-99.9 Laboratory test finding 11/14/2009 [facility] Free T4 1.01 ng/dL 0.70-1.48 TSH 2.572 uIU/mL 0.350-4.940 PSA 0.42 ng/mL 0.00-4.00 Basic Metabolic 04/04/2009 [facility] Glucose 117.00 mg/dL High 70.00-110.00 Panel Sodium 138 mmol/L 136-145 Potassium 4.2 mmol/L 3.5-5.1 Chloride 105 mmol/L 98-107 Carbon Dioxide 24.00 mmol/L 22.00-31.00 Urea Nitrogen 12 mg/dL 9-21 GFR 67.85 mL/min 72 Creatinine 1.2 mg/dL 0.7-1.3 Calcium 9.4 mg/dL 8.9-10.4 BUN/CR 10.00 10.00-20.00 Osmo 286.79 275.00-295.00 CBC/Automated Differential 04/04/2009 [facility] WBC 5.81 k/uL 4.60 -10.20 Ashli 2.64 2.00-7.50 %N 45.3 % 37.0-80.0 Lym 2.49 K/UL 1.20-4.80 %L 42.8 % 10.0-50.0 Goodhue 0.317 0.000-0.900 %M 5.45 % 0.00-12.00 Eos 0.292 0.000-0.700 %E 5.02 % 0.00-7.00 Baso 0.081 0.000-0.200 %B 1.40 % 0.00-4.00 RBC 4.97 m/uL 4.04-6.13 Hemoglobin 15.3 g/dL 12.2-18.1 Hematocrit 45.0 % 42.0-53.7 MCV* 90.5 fl 80.0-97.0 MCH* 30.8 pg 27.0-31.2 MCHC* 34.1 g/dL 31.8-35.4 RDW* 11.5 % Low 11.6-14.8 PLT 282 K/uL 142-424 MPV 7.9 fL 0.0-99.9 Lipid Panel 04/04/2009 [facility] Cholesterol 213 mg/dL High 112- 200 73 Triglyceride 82 mg/dL 1-200 74 HDL 48 mg/dL 30-70 75 Chol/HDL 4.44 4.00-6.70 LDL 159.00 mg/dL High 20.00-130.00 76 NHDL 165.00 mg/dL High 0.00-100.00 77 Hepatic Function 04/04/2009 [facility] Total Bilirubin 1.0 mg/dL 0.2-1.2 Panel Direct Bilirubin 0.3 mg/dL 0.0-0.5 Total Protein 7.9 g/dL 6.4-8.3 Albumin 4.1 g/dL 3.5-5.0 Alkaline Phosphatase 67 U/L 40-150 Alanine Aminotransferase 31 U/L 0-55 Aspartate Aminotransferase 20 U/L 5-34 A/G 1.08 Low 1.46-2.46 Glob 3.80 High 2.30-3.50 Indirect Bilirubin 0.70 0.20-0.80 Laboratory test 04/04/2009 [facility] TSH 3.096 uIU/mL 0.350-4.940 finding Lipid Panel 04/12/2008 [facility] Cholesterol 174 mg/dL 112-200 78 Triglyceride 157 mg/dL 1-200 79 HDL 51 mg/dL 30-70 80 Chol/HDL 3.41 Low 4.00-6.70 LDL 107.00 mg/dL 20.00-130.00 81 NHDL 123.00 mg/dL High 0.00-100.00 82 CBC/Automated Differential 03/15/2008 [facility] WBC 5.99 k/uL 4.60 -10.20 Ashli 2.63 2.00-7.50 %N 43.9 % 37.0-80.0 Lym 2.58 K/UL 1.20-4.80 %L 43.1 % 10.0-50.0 Goodhue 0.353 0.000-0.900 %M 5.89 % 0.00-12.00 Eos 0.351 0.000-0.700 %E 5.85 % 0.00-7.00 Baso 0.078 0.000-0.200 %B 1.31 % 0.00-4.00 RBC 4.61 m/uL 4.04-6.13 Hemoglobin 14.8 g/dL 12.2-18.1 Hematocrit 43.0 % 42.0-53.7 MCV* 93.3 fl 80.0-97.0 MCH* 32.1 pg High 27.0-31.2 MCHC* 34.4 g/dL 31.8-35.4 RDW* 11.3 % Low 11.6-14.8 PLT 276 K/uL 142-424 MPV 8.1 fL 0.0-99.9 Basic Metabolic Panel 03/15/2008 [facility] Glucose 94.00 mg/dL 70.00-110.00 Sodium 140 mmol/L 136-145 Potassium 4.5 mmol/L 3.5-5.1 Chloride 106 mmol/L 98-107 Carbon Dioxide 24.00 mmol/L 22.00-31.00 Urea Nitrogen 13 mg/dL 9-21 GFR 84.10 mL/min 83 Creatinine 1.0 mg/dL 0.7-1.3 Calcium 9.2 mg/dL 8.9-10.4 BUN/CR 13.00 10.00-20.00 Osmo 289.87 275.00-295.00 Lipid Panel 03/15/2008 [facility] Cholesterol 217 mg/dL High 112- 200 84 Triglyceride 115 mg/dL 1-200 85 HDL 46 mg/dL 30-70 86 Chol/HDL 4.72 4.00-6.70 LDL 160.00 mg/dL High 20.00-130.00 87 NHDL 171.00 mg/dL High 0.00-100.00 88 Laboratory test 03/15/2008 [facility] Occult Negative Negative finding Blood-Stool X3 Urinalysis/Micro 03/15/2008 [facility] Color Lt Yellow Abnormal scopic Appear Clear Abnormal Leuk Negative Negative Nitrite Negative Negative Urobil 0.2 0.2-1.0 Protein Negative Negative pH 6.0 5.0-8.5 Blood Trace-Lysed Abnormal Negative S.G. <1.005 1.005-1.025 Ketone Negative Negative Bili Negative Negative U-Glu Negative Negative U-RBC occ. 0-2 Laboratory test finding 03/15/2008 [facility] PSA 0.32 ng/mL 0.00- 4.00 Free T4 0.94 ng/dL 0.70-1.48 TSH 2.455 uIU/mL 0.350-4.940 Hepatic Function 03/15/2008 [facility] Total Bilirubin 0.9 mg/dL 0.2-1.2 Panel Direct Bilirubin 0.3 mg/dL 0.0-0.5 Total Protein 7.7 g/dL 6.4-8.3 Albumin 4.6 g/dL 3.5-5.0 Alkaline Phosphatase 73 U/L 40-150 Alanine Aminotransferase 28 U/L 0-55 Aspartate Aminotransferase 21 U/L 5-34 A/G 1.48 1.46-2.46 Glob 3.10 2.30-3.50 Indirect Bilirubin 0.60 0.20-0.80 Post Vasectomy 06/29/2006 [facility] Sperm Sperm Present Motility Laboratory test 03/05/2006 [facility] Troponin I 0.00 ng/mL 0.00- 0.30 finding Laboratory test 12/19/2005 [facility] Urine Culture No growth. 89 finding Comprehensive 12/19/2005 [facility] Glu 99 mg/dL 70-110 Metabolic Panel [...] 2.30-3.50 Osmo 284.86 275.00-295.00 CBC/Automated Differential 12/19/2005 [facility] WBC 7.12 k/uL 4.60 -10.20 Ashli 2.83 2.00-7.50 %N 39.7 % 37.0-80.0 Lym 3.27 K/UL 1.20-4.80 %L 46.0 % 10.0-50.0 Goodhue 0.612 0.000-0.900 %M 8.60 % 0.00-12.00 Eos [...] DISEASE:15-59 ml/min RENAL FAILURE:<15 ml/min 54 [facility] [place] 69 [facility] [id number] 55 GOAL LESS THAN 200 56 GOAL LESS THAN 200 57 GOAL GREATER THAN 45 58 GOAL LESS THAN 100 59 GOAL LESS THAN 100 60 594.00 resistant 61 NORMAL FUNCTION OR MILD RENAL DISEASE:>60 ml/min ADVANCED RENAL DISEASE:15-59 ml/min RENAL FAILURE:<15 ml/min 62 [facility] 63 Essentially negative urine. 64 [employer] DEPARTMENT OF PATHOLOGY or Extension 9229 SURGICAL PATHOLOGY REPORT PATIENT: MARINO ERIC : 1960 AGE: 50 Y SEX: M ACCT: [id number] PROCEDURE DATE: 02/17/2011 DATE RECEIVED: 02/18/2011 REQUESTING PHYSICIAN: LORENZO LEE MD LOCATION: [facility] Case No. [id number] FINAL DIAGNOSIS: SKIN TAG, RIGHT LEG (BIOPSY): POLYPOID HYPERTROPHIC DERMAL SCAR. [facility] D/T 02/19/11 GROSS DESCRIPTION: Specimen is received in formalin, labeled Marino Eric, lab #[id number], consists of an off-white light joel wrinkled rubbery polypoid papule of skin that is 0.95 x 0.8 x 0.45 cm. The margin is inked black. It is serially sectioned. TS/1 AP/slm D/T 02/18/11 CPT; 54694 CLINICAL DATA: [id number] NONE PROVIDED SPECIMEN SUBMITTED: SKIN TAG(S), RIGHT LEG 702.11 ADDITIONAL COPIES SENT TO: Electronically Signed by: Signed Date and Time: FIDENCIO BRAXTON MD PATHOLOGIST 02/19/2011 17:08 __ Performed at [facility], [address] [place] [address] This report may include one or more immunohistochemistry stain results which use analyte-specific reagents. The interpretation of the above immunohistochemistry stain or stains is guided by published results in the medical literature, provided package information from the sheet music salesperson and by internal review of staining performance and assay validation within the Immunohistochemistry Department of [employer]. This testing has not been cleared or [...] 100 88 GOAL LESS THAN 100 89 [employer] [address] [place] [id number] Debra Sanchez D.O., Ph.D. 90 NORMAL FUNCTION OR MILD RENAL DISEASE:>60 ml/min ADVANCED RENAL DISEASE:15-59 ml/min RENAL FAILURE:<15 ml/min 91 Source: URINE, CLEAN CATCH No growth. Procedures Date Code Description Status 07/08/2018 97440 X-Ray - Knee Complete 4 Or More Views Completed 10/28/2016 14268 Electrocardiogram Complete Completed 10/28/2016 54493 X-Ray, Spine, Cervical; 2 Or 3 Vies Completed 09/10/2016 74607 Admin Fee For Therapeutic, Prophylactic Or Diagnostic Completed Injection 09/10/2016 56255 X-Ray Knee; One Or Two Views Completed 09/10/2016 65476 Inject/Drain Joint/Bursa Major Completed 05/12/2011 43965 Screening Test Of Visual Acuity , Quantitative, Completed Bilateral 05/12/2011 63966 Electrocardiogram Complete Completed 05/12/2011 47215 Pure Tone Audiometry, Air Completed 05/12/2011 16782 X-Ray Chest Two Views Frontal & Lateral Completed 02/17/2011 90403 Excise Benign Lesion .6-1CM Trunk/Arm/Leg Completed 02/17/2011 03559 Shave Skin Lesion .6-1CM Trunk/Arm/Leg Completed 05/04/2008 24968264 Colonoscopy Completed 03/15/2008 84033 X-Ray Chest Two Views Frontal & Lateral Completed 03/15/2008 30772 Electrocardiogram Complete Completed 02/22/2007 62935 X-Ray C-Spine Min Of Four Views Completed 02/19/2007 27710 Therapeutic, Prophylactic Inj Completed 05/15/2006 83489 Vasectomy Including Post-Op Semen Exam Completed 03/05/2006 73695 Electrocardiogram Complete Completed 03/05/2006 77027 Therapeutic, Prophylactic Inj Completed 03/05/2006 65430 X-Ray Ribs & Chest Three Views Completed 03/04/2006 12589 X-Ray Chest Two Views Frontal & Lateral Completed 02/11/2005 41052 X-Ray Elbow Complete Completed 05/07/2004 61562 Inject/Drain Joint/Bursa Intermediate Completed 11/13/2003 68128 X-Ray Abdomen Single Ap View Completed Encounters Type Date Location Provider Dx Diagnosis Office Visit 06/08/[address] Lorenzo Lee JR, G20 Parkinson' s disease 11:00a G25.0 Essential tremor G43.909 Migraine, unsp, not intractable, without status migrainosus E78.2 Mixed hyperlipidemia Z12.5 Encounter for screening for malignant neoplasm of prostate Office Visit 03/11/2018 10:15a Main Office Lorenzo Lee JR, G20 Parkinson's disease G25.0 Essential tremor E78.2 Mixed [...] Office Paulette Coronado L23.7 Allergic contact Mullally, SKEIN [employer]-BC dermatitis due to plants, except food Office [...] W/O Intractable W/O Status Migrainosus V58.69 Medications Freight Clerk (Current) Use Encounter V76.44 Screening For Malig [...] Screening For Malignant Neoplasms Colon v58.69 Medications Freight Clerk (Current) Use Encounter Office Visit 12/20/2011 10:30a Main Office Abraham Marcus [facility] MD Arsenio Follicle Diseases Other Spec Office Visit 12/02/2011 3:45p Main Office Paulette Coronado 704.[employer] [facility] [employer] [facility] NEO Cartwright-BC Follicle Diseases Other Spec 493.01 Asthma Extrinsic [...] Routine AT [facility] Care Facility V58.69 Medications Freight Clerk (Current) Use Encounter V76.44 Screening For Malig Jordy Prostate V06.1 Izxpwxtepd-Gsigeeu-Hdursrgv Combined (DTaP) V76.51 Special Screening For Malignant [...] Not Elsewhere Spec Plan of Treatment Future Appointment(s):09/23/2018 9:00 am - Lorenzo Lee JR, MD at [...]
[2018-07-23] MEDS ORDERED: Naproxen TAB* 250 MG PO ONE (20:12)
[2018-07-23 20:39] VITALS: BP 139/92
== END 2018-07-23 20:35 | disposition home or self-care (01) ==
LOC: ED 18:48
DX: S16.1XXA Strain of muscle, fascia and tendon at neck level, initial encounter (principal); S30.811A Abrasion of abdominal wall, initial encounter; M25.532 Pain in left wrist; V43.52XA Car driver injured in collision with other type car in traffic accident, initial encounter; Y92.410 Unspecified street and highway as the place of occurrence of the external cause; G20 Parkinson's disease
CPT/HCPCS: 99282; A9270-GY